=== PATIENT | male | born 1960 | race Caucasian/White ===

== ENCOUNTER 2021-06-22 04:30 | Observation (INO) | payer BC, OTHER ==
[2021-06-22 05:16] LABS: Basophils % (A) 1 %; Eosinophils # (A) 0.4 k/uL (0-0.7); Eosinophils % (A) 5 %; HCT 43.3 % (39.0-53.0); HGB 14.7 gm/dL (13.0-17.5); Lymphocytes # (A) 1.5 k/uL (1.0-4.8); Lymphocytes % (A) 20 %; MCH 37.7 pg (25.0-35.0); MCHC 33.9 g/dL (31.0-37.0); MCV 111.3 fL (80.0-100.0); Macrocytosis Marked; Mean Platelet Volume 7.9; Monocytes # (A) 0.5 k/uL (0-1.0); Monocytes % (A) 6 %; Neutrophils # (A) 4.9 k/uL (1.3-7.7); Neutrophils % (A) 65 %; Platelet Count 186 k/uL (150-450); RBC 3.89 m/uL (4.30-5.90); RDW 15.1 % (11.5-15.5); WBC 7.5 k/uL (3.8-10.6)
[2021-06-22] MEDS ORDERED: MORPHINE SULFATE 4 MG/ML SYRINGE IV STA (05:27)
[2021-06-22 05:33] LABS: Partial Thromboplastin Time 24.8 sec (22.0-30.0); Prothrombin Time 10.9 sec (9.0-12.0)
[2021-06-22 05:44] LABS: ALT 54 U/L (4-49); AST 70 U/L (17-59); African American GFR (CKD) >90 (>60 ml/min/1.73 sqM); Albumin 3.5 g/dL (3.5-5.0); Alkaline Phosphatase 92 U/L (38-126); Anion Gap 8 mmol/L; Blood Urea Nitrogen 10 mg/dL (9-20); Carbon Dioxide 25 mmol/L (22-30); Chloride 106 mmol/L (98-107); Glucose 111 mg/dL (74-99); Magnesium 1.3 mg/dL (1.6-2.3); Non-African American GFR(CKD) 89 (>60 ml/min/1.73 sqM); Potassium 3.5 mmol/L (3.5-5.1); Sodium 139 mmol/L (137-145); Total Bilirubin 0.9 mg/dL (0.2-1.3); Total Protein 7.6 g/dL (6.3-8.2)
--- NOTE | 2021-06-22 05:59 | XR ---
EXAMINATION TYPE: XR chest 1V portable DATE OF EXAM: 06/22/2021 COMPARISON: NONE HISTORY: Chest pain TECHNIQUE: Single view FINDINGS: There is some pulmonary interstitial edema. Heart is top normal in size. There are no hilar masses. Mediastinum appears normal. Bony thorax is intact. IMPRESSION: There is pulmonary interstitial edema which is nonspecific. This could be acute pneumonia or heart failure.
--- NOTE | 2021-06-22 07:50 | CT ---
CT CHEST FOR PULMONARY EMBOLISM. EXAMINATION TYPE: CT chest angio for PE DATE OF EXAM: 06/22/2021 INDICATION: SOB, chest pain, elevated d dimer CT DLP: 516.3 mGycm, Automated exposure control for dose reduction was used. CONTRAST: Patient injected with 100 mL of Isovue 370. COMPARISON: None TECHNIQUE: CT of the chest is performed on a spiral scan at 2 mm thick sections. Study is performed with intravenous contrast timed for evaluation for pulmonary embolism. This will limit additional po rtions of the evaluation. 3-D MIP images reconstructed by the technologist are reviewed on the compu ter in the coronal and sagittal planes. FINDINGS: No persistent filling defects are evident to suggest an acute pulmonary embolism. Contrast timing is suboptimal with greater contrast within the aorta than pulmonary arteries. Smaller peripheral pulmona ry emboli may not be well appreciated. There are multiple enlarged hilar lymph nodes. Somewhat prominent pretracheal lymph node is present. Aortopulmonic window and superior mediastinal adenopathy is present. Bilateral axillary adenopathy is present. The largest on the right measures 1.9 cm. Largest on the left measures 1.3 cm. The ascending aorta diameter at the level of the main pulmonary artery is 3.3 cm. The main pulmona ry artery diameter at the bifurcation is 3.4 cm. Minimal compressive atelectasis within the dependent portions the lung bases are present. Limited CT section through the upper abdomen are unremarkable. IMPRESSIONS: 1. No acute pulmonary embolism. This has some limitation discussed above. 2. Enlarged adenopathy including hilar, pretracheal, aortopulmonic window, superior mediastinum, and bilateral axillary lymph nodes. Additional workup is recommended.
[2021-06-22] MEDS ORDERED: IPRATROPIUM-ALBUTEROL 3 ML NEB INHALATION PRN (08:31)
[2021-06-22] MEDS ORDERED: methylPREDNISolone SOD SUCCI 125 MG/2 ML VIAL IV STA (08:31)
--- NOTE | 2021-06-22 09:18 | ED ---
Chest Pain HPI - General Chief Complaint: Chest Pain Stated Complaint: Chest Pain Time Seen by Provider: 06/22/21 05:01 Source: patient, EMS Mode of arrival: EMS Limitations: no limitations - History of Present Illness Initial Comments: This patient is 61-year-old man presenting to be evaluated for substernal chest pain. The patient states that it had been present earlier in the day but became much worse tonight. He was in bed and it became severe. He also has a little bit of cough but states that he has a baseline and then a little bit of dyspnea. Patient states that they had given him some fentanyl EMS ride and that has improved things. The pain is made worse by taking a deep breath and with certain positions. He has not noted any diaphoresis, nausea or vomiting, palpitations, lightheadedness or syncope. MD Complaint: chest pain -: days(s) Onset: during rest Pain Location: substernal Pain Radiation: none Severity: moderate Quality: aching Consistency: constant Improves With: nothing Worsens With: inspiration Anginal Symptoms: dyspnea Other Symptoms: cough - Related Data Home Medications Medication Instructions Recorded Confirmed Hydrochlorothiazide 12.5 mg PO DAILY 06/22/21 06/22/21 [hydroCHLOROthiazide] Levothyroxine Sodium [Synthroid] 50 mcg PO DAILY 06/22/21 06/22/21 QUEtiapine [SEROquel] 100 mg PO DAILY 06/22/21 06/22/21 Simvastatin [Zocor] 40 mg PO DAILY 06/22/21 06/22/21 lisinopriL 40 mg PO DAILY 06/22/21 06/22/21 metFORMIN HCL [Glucophage] 500 mg PO DAILY 06/22/21 06/22/21 Allergies Allergy/AdvReac Type Severity Reaction Status Date / Time No Known Allergies Allergy Verified 06/22/21 09:15 Review of Systems ROS Statement: Those systems with pertinent positive or pertinent negative responses have been documented in the HPI. ROS Other: All systems not noted in ROS Statement are negative. Constitutional: Denies: fever, chills Respiratory: Reports: cough, dyspnea. Denies: wheezes, hemoptysis Cardiovascular: Reports: chest pain. Denies: palpitations, orthopnea, edema, syncope Gastrointestinal: Denies: abdominal pain, nausea, vomiting, diarrhea Genitourinary: Denies: dysuria, hematuria Musculoskeletal: Denies: back pain Skin: Denies: rash Neurological: Denies: headache, weakness EKG Findings - EKG Results: EKG: interpreted by GM WANG, sinus rhythm (Rate 95 bpm), normal axis, normal QRS, normal ST/T Past Medical History Past Medical History: Hypertension History of Any Multi-Drug Resistant Organisms: None Reported Past Surgical History: Cholecystectomy, Orthopedic Surgery Additional Past Surgical History / Comment(s): KNEE ARTHROSCOPY, PILONIDAL CYST. Past Anesthesia/Blood Transfusion Reactions: No Reported Reaction Past Psychological History: No Psychological Hx Reported Past Alcohol Use History: Daily Past Drug Use History: None Reported - Past Family History Father Additional Family Medical History / Comment(s): Colon CA, bone CA, at 78 years old from bone CA Mother Additional Family Medical History / Comment(s): breast CA General Exam Limitations: no limitations General appearance: alert, in no apparent distress Head exam: Present: atraumatic, normocephalic Eye exam: Present: normal appearance. Absent: scleral icterus, conjunctival injection Neck exam: Present: normal inspection Respiratory exam: Present: wheezes. Absent: respiratory distress, rales, rhonchi, stridor, chest wall tenderness, accessory muscle use, decreased breath sounds Cardiovascular Exam: Present: regular rate, normal rhythm, normal heart sounds. Absent: systolic murmur, diastolic murmur, rubs, gallop GI/Abdominal exam: Present: soft. Absent: distended, tenderness, guarding, rebound, rigid, mass Extremities exam: Present: normal inspection, normal capillary refill. Absent: pedal edema, calf tenderness Back exam: Present: normal inspection. Absent: CVA tenderness (R), CVA tenderness (L) Neurological exam: Present: alert Skin exam: Present: warm, dry, intact, normal color. Absent: rash Course Vital Signs 06/22/21 06/22/21 06/22/21 04:57 05:02 07:08 Temperature 97.6 F Pulse Rate 88 74 Pulse Rate [ Pulse Oximetery ] Respiratory 24 24 22 Rate Blood Pressure 129/86 103/82 Blood Pressure [Right Arm] O2 Sat by Pulse 98 98 Oximetry 06/22/21 06/22/21 06/22/21 09:13 11:16 15:00 Temperature 100.7 F H Pulse Rate 106 H 114 H Pulse Rate [ 95 Pulse Oximetery ] Respiratory 22 22 22 Rate Blood Pressure 146/96 166/97 Blood Pressure 161/95 [Right Arm] O2 Sat by Pulse 95 93 L Oximetry 06/22/21 06/22/21 06/22/21 15:04 15:13 16:00 Temperature 99.1 F Pulse Rate 114 H 114 H 87 Pulse Rate [ Pulse Oximetery ] Respiratory 21 Rate Blood Pressure 152/108 Blood Pressure [Right Arm] O2 Sat by Pulse Oximetry 06/22/21 17:44 Temperature 99.1 F Pulse Rate 94 Pulse Rate [ Pulse Oximetery ] Respiratory 16 Rate Blood Pressure 157/94 Blood Pressure [Right Arm] O2 Sat by Pulse 92 L Oximetry Disposition Clinical Impression: COPD (chronic obstructive pulmonary disease) Disposition: ADMITTED IP TO THIS HOSP Condition: Undetermined Is patient prescribed a controlled substance at d/c from ED?: No
[2021-06-22] MEDS ORDERED: LORazepam 2 MG/ML INJ IV PRN ×3 (10:49)
[2021-06-22] MEDS ORDERED: THIAMINE 100 MG/ML 2 ML VIAL IM STA (10:49)
[2021-06-22] MEDS ORDERED: Magnesium Replacement Protocol 1 EACH MISC MISCELLANE PRN (10:51)
[2021-06-22] MEDS ORDERED: POTASSIUM CHLORIDE ER 20 MEQ TAB.ER PO STA (10:54)
[2021-06-22] MEDS: HEPARIN SODIUM,PORCINE/PF 5,000 UNIT/0.5 ML SYRINGE SQ SCH ×2 (10:55→21:52)
[2021-06-22] MEDS: MAGNESIUM SULFATE-D5W PMX 1 GM in DEXTROSE/WATER 1 100ML.BAG IVPB SCH ×3 (11:29→21:52)
[2021-06-22] MEDS ORDERED: methylPREDNISolone SOD SUCCI 125 MG/2 ML VIAL IV SCH (12:00)
--- NOTE | 2021-06-22 12:45 | P.CNPUL ---
History of Present Illness Consult date: 06/22/21 Requesting physician: Corky Cheung Reason for consult: chest pain, other Chief complaint: Chest pain History of present illness: This is a 61-year-old white male patient with past medical history of hypertension, hypothyroidism, chronic smoker, smoking one half pack a day for 48 years, who sees Margarita Locke PA-C for primary care services. Patient came in on 06/22/2021 with complaints of substernal chest pain and shortness of breath for the past 2 months. In addition patient had an extensive papular macular rash covering his whole entire body including chest, neck, upper and lower ex tremities, back and arm pits and groins. He states the rash has been present only for the past 2 weeks. Patient has not had any recent medication changes, he does take lisinopril for hypertension and his been on it for years, with no recent dose adjustment. Patient reports a little bit of a cough which is at baseline, no fever or chills. His chest discomfort is reportedly worse with deep inspiration. He denied any diaphoresis, no nausea or vomiting, no palpitations no lightheadedness or syncope. When we asked the patient to point to the area of his chest discomfort he is pointing more to the epigastric region. Chest x-ray showed pulmonary interstitial edema. CT angiogram of the chest was completed showing no evidence of pulmonary embolism with some limitations of the study, and it did show enlarged adenopathy including hilar, pretracheal aortopulmonic window, superior mediastinum and bilateral axillary lymph nodes with the recommendation of additional workup. Lung windows showed minimal compressive atelectasis within the dependent portions of the lung bases. Limited CT section of the upper abdomen was unremarkable. Patient tested negative for COVId 19. During our evaluation patient is seen in the emergency Department, resting on the stretcher, currently on 4 L of oxygen with a pulse ox of 94%, appears to be in no acute distress, obvious extensive rash covering his upper trunk, neck, arms, lower legs, appears to be somewhat poorly kept. Review of Systems All systems: negative Constitutional: Denies chills, Denies fever Eyes: denies blurred vision, denies pain Ears, nose, mouth and throat: Denies headache, Denies sore throat Cardiovascular: Denies chest pain, Denies shortness of breath Respiratory: Reports dyspnea, Denies cough Gastrointestinal: Denies abdominal pain, Denies diarrhea, Denies nausea, Denies vomiting Musculoskeletal: Denies myalgias Integumentary: Denies pruritus, Denies rash Neurological: Denies numbness, Denies weakness Psychiatric: Denies anxiety, Denies depression Endocrine: Denies fatigue, Denies weight change Past Medical History Past Medical History: Hypertension Additional Past Medical History / Comment(s): DM type 2, History of Any Multi-Drug Resistant Organisms: None Reported Past Surgical History: Cholecystectomy, Orthopedic Surgery Additional Past Surgical History / Comment(s): KNEE ARTHROSCOPY, PILONIDAL CYST. Past Anesthesia/Blood Transfusion Reactions: No Reported Reaction Past Psychological History: No Psychological Hx Reported Past Alcohol Use History: Daily Past Drug Use History: None Reported - Past Family History Father Additional Family Medical History / Comment(s): Colon CA, bone CA, at 78 years old from bone CA Mother Additional Family Medical History / Comment(s): breast CA Medications and Allergies Home Medications Medication Instructions Recorded Confirmed Type Hydrochlorothiazide 12.5 mg PO DAILY 06/22/21 06/22/21 History [hydroCHLOROthiazide] Levothyroxine Sodium [Synthroid] 50 mcg PO DAILY 06/22/21 06/22/21 History QUEtiapine [SEROquel] 100 mg PO DAILY 06/22/21 06/22/21 History Simvastatin [Zocor] 40 mg PO DAILY 06/22/21 06/22/21 History lisinopriL 40 mg PO DAILY 06/22/21 06/22/21 History metFORMIN HCL [Glucophage] 500 mg PO DAILY 06/22/21 06/22/21 History Allergies Allergy/AdvReac Type Severity Reaction Status Date / Time No Known Allergies Allergy Verified 06/22/21 09:15 Physical Exam Vitals: Vital Signs Temp Pulse Resp BP Pulse Ox 06/22/21 11:16 114 H 22 166/97 95 06/22/21 09:13 106 H 22 146/96 06/22/21 07:08 74 22 103/82 98 06/22/21 05:02 24 06/22/21 04:57 97.6 F 88 24 129/86 98 Intake and Output 06/21/21 06/22/21 06/22/21 22:59 06:59 14:59 Other: Weight 95.254 kg 95.254 kg GENERAL EXAM: Alert, very pleasant, 61-year-old white male, on 4 L of oxygen and the pulse ox of 94%, resting on the gurney in the emergency department, patient has extensive papular macular rash covering his upper trunk, neck, arms, armpits, groin areas, backside and legs, with scaling and thickened skin over his hands and bilateral arms comfortable in no apparent distress. HEAD: Normocephalic/atraumatic. EYES: Normal reaction of pupils, equal size. Conjunctiva pink, sclera white. NOSE: Clear with pink turbinates. THROAT: No erythema or exudates. NECK: No masses, no JVD, no thyroid enlargement, no adenopathy. CHEST: No chest wall deformity. Symmetrical expansion. LUNGS: Diminished air entry with no crackles, wheeze, rhonchi or dullness. CVS: Regular rate and rhythm, normal S1 and S2, no gallops, no murmurs, no rubs ABDOMEN: Soft, nontender. No hepatosplenomegaly, normal bowel sounds, no guarding or rigidity. EXTREMITIES: Clubbing of bilateral hands, no edema, no cyanosis, 2+ pulses and upper and lower extremities. MUSCULOSKELETAL: Muscle strength and tone normal. SPINE: No scoliosis or deformity SKIN: Extensive papular macular rash covering truncal area, neck, bilateral arms, armpits, back, groin, sacral area, and bilateral legs. The rash on the arms and hands appears to be worse with thickening of the skin, and scaling CENTRAL NERVOUS SYSTEM: Alert and oriented -3. No focal deficits, tone is normal in all 4 extremities. PSYCHIATRIC: Alert and oriented -3. Appropriate affect. Intact judgment and insight. Results - Laboratory Findings CBC and BMP: 06/22/21 05:03 06/22/21 05:03 PT/INR, D-dimer PT 10.9 sec (9.0-12.0) 06/22/21 05:03 INR 1.0 (<1.2) 06/22/21 05:03 D-Dimer 1.60 mg/L FEU (<0.60) H 06/22/21 05:03 Abnormal lab findings: Abnormal Labs 06/22/21 06/22/21 06/22/21 05:03 05:03 05:03 RBC 3.89 L MCV 111.3 H MCH 37.7 H Macrocytosis Marked A D-Dimer 1.60 H Glucose 111 H Magnesium 1.3 L AST 70 H ALT 54 H - Diagnostic Findings Chest x-ray: report reviewed, image reviewed CT scan - chest: report reviewed, image reviewed Assessment and Plan Plan: Assessment: #1. Acute exacerbation of COPD. Patient is negative for COVID-19 #2. Shortness of breath related to the above. CTA chest ruled out pulmonary embolism #3. Chest pain, EKG showed no acute ST-T wave changes, first troponin was negative #4. Enlarged hilar, pretracheal, aortopulmonary, superior mediastinum and bilateral axillary lymph nodes, patient will need additional workup. #5. Extensive papular macular rash all over patient's body #6. Chronic smoking history, carries 1-1/2 pack year smoking history for 48 years. #7. History of COPD #8. Hypertension #9. Hypothyroidism #10. Depression #11. Daily alcohol use #12. Osteoarthritis with previous knee arthroscopy #13. Previous history of cholecystectomy Plan: Agree with IV steroids Continue breathing treatments Chest x-ray and CT chest reviewed The hilar and mediastinal lymph nodes may be too small for biopsy Consult interventional radiology for possibility of axillary node biopsies We'll continue to follow patient's clinical course I performed a history & physical examination of the patient and discussed their management with my nurse practitioner, Shannon Martell. I reviewed the nurse practitioner's note and agree with the documented findings and plan of care. Lung sounds are positive for diffuse wheezes throughout the lung riggs. The findings and the impression was discussed with the patient. I attest to the documentation by the nurse practitioner. I have personally seen and examined the patient, performed the documentation and the assessment and plan as written. Number of minutes spent on the visit: [15] Time with Patient: Greater than 30
--- NOTE | 2021-06-22 13:57 | P.HPIM ---
History of Present Illness H&P Date: 06/22/21 This is a pleasant 61-year-old male presents to the [facility] with complaints of chest pain substernal with associated cough as well as some shortness of breath. Patient always has a cough, no change from baseline. Chest pain is worse with inspiration and expiration, had received IV pain medication in the ambulance which helped. He does have a history of COPD and is a currently a one and a half pack per day per smoker as well as drinks 1 pint per day of whiskey, and beer. Additional past medical history includes hypertension, hypothyroidism, diabetes mellitus type 2. CIWA in the EC was 16+, patient was started on ativan protocol for acute alcohol withdrawal. Patient currently denies a desire to quit drinking. Patient has a generalized rash on the lower abdomen/trunk, neck, upper and lower extremities, and dry scaly skin, has admitted to not showering for 3 weeks. Denies any suicidal thoughts. Was started on IV steroids in the [facility] for a COPD exacerbation as patient does have some scattered wheezing. Pulmonary was consulted. Labs reviewed, white count 7.5, hemoglobin 14.7, d-dimer 1.60, sodium 139, potassium 3.5, BUN 10, creatinine 0.92, glucose 111, magnesium 1.3, AST 70, ALT 54, troponin negative, BNP 111. COVID Not detected. EKG reviewed; normal sinus rhythm, heart rate 95, QT 446, no ST or T-wave abnormalities evident. Chest x-ray shows pulmonary interstitial edema which is nonspecific this could be acute pneumonia or heart failure Chest CTA negative for acute pulmonary embolism, enlarged adenopathy including hilar, pretracheal, aortopulmonic window, superior mediastinum and bilateral axillary lymph nodes. Recommended additional workup. REVIEW OF SYSTEMS: CONSTITUTIONAL: No fever, no malaise, no fatigue. HEENT: No recent visual problems or hearing problems. Denied any sore throat. CARDIOVASCULAR: No chest pain, orthopnea, PND, no palpitations, no syncope. PULMONARY: Reports shortness of breath, reports cough, no hemoptysis. GASTROINTESTINAL: No diarrhea, no nausea, no vomiting, no abdominal pain. NEUROLOGICAL: No headaches, no weakness, no numbness. HEMATOLOGICAL: Denies any bleeding or petechiae. GENITOURINARY: Denies any burning micturition, frequency, or urgency. MUSCULOSKELETAL/RHEUMATOLOGICAL: Denies any joint pain, swelling, or any muscle pain. ENDOCRINE: Denies any polyuria or polydipsia. The rest of the 14-point review of systems is negative. PHYSICAL EXAMINATION: GENERAL: The patient is alert and oriented x3, not in any acute distress. Well developed, well nourished. HEENT: Pupils are round and equally reacting to light. EOMI. No scleral icterus. No conjunctival pallor. Normocephalic, atraumatic. No pharyngeal erythema. No thyromegaly. CARDIOVASCULAR: S1 and S2 present. No murmurs, rubs, or gallops. PULMONARY: Scattered wheezing throughout ABDOMEN: Soft, nontender, nondistended, normoactive bowel sounds. No palpable organomegaly. MUSCULOSKELETAL: No joint swelling or deformity. EXTREMITIES: No cyanosis, clubbing, or pedal edema. NEUROLOGICAL: Gross neurological examination did not reveal any focal deficits. SKIN: Red maculopapular rash to the lower abdomen/trunk, extremities, with dry scaly flaking skin. Assessment and plan Assessment -Acute COPD exacerbation currently on 4L nasal cannula -Elevated D-Dimer, no evidence for PE -Acute chest pain, trending troponins, EKG reviewed -Generalized rash probably due to poor hygiene, recommend shower and lotion -Alcoholic hepatitis -Acute alcohol withdrawal -Dibetes Mellitus Type 2, hold oral diabetic agents will use novolog sliding scale -Hypertension -Hypothyroidism -Chronic Alcohol abuse -Chronic tobacco dependency -Obesity -General medical debility with poor hygiene GI Prophylaxis: Pepcid DVT Prophylaxis: Subcu heparin Plan Continue IV steroids, updrafts, oxygen support Pulmonary consultation IR consultation for possible axillary lymph node biopsy [place] protocol Replace magnesium Resume home medications Repeat labs in AM Prognosis guarded Past Medical History Past Medical History: Hypertension History of Any Multi-Drug Resistant Organisms: None Reported Past Surgical History: Cholecystectomy, Orthopedic Surgery Additional Past Surgical History / Comment(s): KNEE ARTHROSCOPY, PILONIDAL CYST. Past Anesthesia/Blood Transfusion Reactions: No Reported Reaction Past Psychological History: No Psychological Hx Reported Past Alcohol Use History: Daily Past Drug Use History: None Reported - Past Family History Father Additional Family Medical History / Comment(s): Colon CA, bone CA, at 78 years old from bone CA Mother Additional Family Medical History / Comment(s): breast CA Medications and Allergies Home Medications Medication Instructions Recorded Confirmed Type Hydrochlorothiazide 12.5 mg PO DAILY 06/22/21 06/22/21 History [hydroCHLOROthiazide] Levothyroxine Sodium [Synthroid] 50 mcg PO DAILY 06/22/21 06/22/21 History QUEtiapine [SEROquel] 100 mg PO DAILY 06/22/21 06/22/21 History Simvastatin [Zocor] 40 mg PO DAILY 06/22/21 06/22/21 History lisinopriL 40 mg PO DAILY 06/22/21 06/22/21 History metFORMIN HCL [Glucophage] 500 mg PO DAILY 06/22/21 06/22/21 History Allergies Allergy/AdvReac Type Severity Reaction Status Date / Time No Known Allergies Allergy Verified 06/22/21 09:15 Physical Exam Vitals: Vital Signs Temp Pulse Resp BP Pulse Ox 06/22/21 09:13 106 H 22 146/96 06/22/21 07:08 74 22 103/82 98 06/22/21 05:02 24 06/22/21 04:57 97.6 F 88 24 129/86 98 Intake and Output 06/21/21 06/22/21 06/22/21 22:59 06:59 14:59 Other: Weight 95.254 kg Results CBC & Chem 7: 06/22/21 05:03 06/22/21 05:03 Labs: Abnormal Lab Results - Last 24 Hours (Table) 06/22/21 06/22/21 06/22/21 Range/Units 05:03 05:03 05:03 RBC 3.89 L (4.30-5.90) m/uL MCV 111.3 H (80.0-100.0) fL MCH 37.7 H (25.0-35.0) pg Macrocytosis Marked A D-Dimer 1.60 H (<0.60) mg/L FEU Glucose 111 H (74-99) mg/dL Magnesium 1.3 L (1.6-2.3) mg/dL AST 70 H (17-59) U/L ALT 54 H (4-49) U/L Assessment and Plan Time with Patient: Greater than 30
[2021-06-22] MEDS: IPRATROPIUM-ALBUTEROL 3 ML NEB INHALATION SCH ×3 (14:59→19:22)
--- NOTE | 2021-06-22 15:57 | US ---
ULTRASOUND GUIDED CORE BIOPSY RIGHT AXILLA LYMPH NODE: CLINICAL HISTORY: Right axilla lymphadenopathy FINDINGS: The procedure was explained to the patient. The risks, complications, benefits and alternatives were discussed and any questions were answered. Informed consent was obtained. Patient was placed supin e on the ultrasound table and prepped and draped in the usual sterile fashion. Utilizing a 18 gauge needle, 2 passes were made into the requested right axillary lymph node. Patient was stable throughout the procedure. Pathology is pending. All elements of maximal barrier and sterile technique were utilized. IMPRESSION: 1. Successful ultrasound guided core biopsy right axillary lymph node.
[2021-06-22 20:13] LABS: Glucose,Whole Blood 318 mg/dL (75-99)
[2021-06-22] MEDS: INSULIN ASPART (NovoLOG) 100 UNIT/ML VIAL SQ SCH ×2 (20:13→21:53)
[2021-06-22] MEDS: THIAMINE 100 MG TAB PO SCH (21:52)
[2021-06-22] MEDS: FAMOTIDINE 20 MG TAB PO SCH (21:52)
[2021-06-22] MEDS: methylPREDNISolone SOD SUCCI 40 MG/ML 1 ML VIAL IV SCH (21:53)
[2021-06-22] MEDS: lisinopriL 20 MG TAB PO SCH (22:43)
[2021-06-22] MEDS: hydroCHLOROthiazide 12.5 MG CAP PO SCH (22:43)
[2021-06-22] MEDS: QUEtiapine 100 MG TAB PO SCH (22:43)
[2021-06-23] MEDS: LEVOTHYROXINE 50 MCG TAB PO SCH (05:40)
[2021-06-23 06:54] LABS: Glucose,Whole Blood 148 mg/dL (75-99)
[2021-06-23] MEDS: THIAMINE 100 MG TAB PO SCH ×2 (07:45→17:27)
[2021-06-23] MEDS: INSULIN ASPART (NovoLOG) 100 UNIT/ML VIAL SQ SCH ×4 (07:47→20:39)
[2021-06-23] MEDS: IPRATROPIUM-ALBUTEROL 3 ML NEB INHALATION SCH ×4 (08:00→20:12)
[2021-06-23] MEDS: methylPREDNISolone SOD SUCCI 40 MG/ML 1 ML VIAL IV SCH ×2 (08:01→20:39)
[2021-06-23] MEDS ORDERED: ATORVASTATIN 20 MG TAB PO SCH (09:00)
--- NOTE | 2021-06-23 09:28 | P.PN ---
Subjective Progress Note Date: 06/23/21 This is a pleasant 61-year-old male presents to the [facility] with complaints of chest pain substernal with associated cough as well as some shortness of breath. Patient always has a cough, no change from baseline. Chest pain is worse with inspiration and expiration, had received IV pain medication in the ambulance which helped. He does have a history of COPD and is a currently a one and a half pack per day per smoker as well as drinks 1 pint per day of whiskey, and beer. Additional past medical history includes hypertension, hypothyroidism, diabetes mellitus type 2. CIWA in the EC was 16+, patient was started on ativan protocol for acute alcohol withdrawal. Patient currently denies a desire to quit drinking. Patient has a generalized rash on the lower abdomen/trunk, neck, upper and lower extremities, and dry scaly skin, has admitted to not showering for 3 weeks. Denies any suicidal thoughts. Was started on IV steroids in the EC for a COPD exacerbation as patient does have some scattered wheezing. Pulmonary was consulted. Labs reviewed, white count 7.5, hemoglobin 14.7, d-dimer 1.60, sodium 139, potassium 3.5, BUN 10, creatinine 0.92, glucose 111, magnesium 1.3, AST 70, ALT 54, troponin negative, BNP 111. COVID Not detected. EKG reviewed; normal sinus rhythm, heart rate 95, QT 446, no ST or T-wave abnormalities evident. Chest x-ray shows pulmonary interstitial edema which is nonspecific this could be acute pneumonia or heart failure Chest CTA negative for acute pulmonary embolism, enlarged adenopathy including hilar, pretracheal, aortopulmonic window, superior mediastinum and bilateral axillary lymph nodes. Recommended additional workup. 06/23/2021 Patient is resting in bed. No acute events overnight. Wheezing has improved significantly. Pt states chest pain has resolved. Did not shower yesterday, plan is for shower today. He is working with physical therapy, and has ambulated in the hallways. Patient last saw PCP Margarita Locke 6 months ago, he did see an eye doctor about 2 weeks ago for possible pink eye, had a scratched cornea at that time and has been on antibiotic eye drops. His right eye has some cloudy drainage and pt states it was crusty last night. Patient retired recently from [employer] and currently does not have health insurance, states he will need a refe rral to a clinic on discharge for primary care. No complaints to right axilla biopsy site, clean and dry. Blood pressure 136/78, 99% on 2 L nasal cannula, heart rate 78, afebrile. ROS Constitutional: Denied any fatigue denied any fever. HEENT: Reports sinus drainage, pressure, reports eye drainage, reports eye crusting Cardio vascular: denied any chest pain, palpitations Gastrointestinal denied any nausea vomiting, diarrhea Pulmonary: Denied any shortness of breath, cough, states wheezing is improving Neurologic denied any new focal deficits All inpatient medications were reviewed and appropriate changes in these medications as dictated in the interval history and assessment and plan. PHYSICAL EXAMINATION: GENERAL: The patient is alert and oriented x3, not in any acute distress. Well developed, well nourished. HEENT: Pupils are round and equally reacting to light. EOMI. Bilateral sclera, injected, cloudy drainage, crusting. No conjunctival pallor. Normocephalic, atraumatic. No pharyngeal erythema. No thyromegaly. CARDIOVASCULAR: S1 and S2 present. No murmurs, rubs, or gallops. PULMONARY: Scattered expiratory wheezing ABDOMEN: Soft, nontender, nondistended, normoactive bowel sounds. No palpable organomegaly. MUSCULOSKELETAL: No joint swelling or deformity. EXTREMITIES: No cyanosis, clubbing, or pedal edema. NEUROLOGICAL: Gross neurological examination did not reveal any focal deficits. SKIN: Red maculopapular rash to the lower abdomen/trunk, extremities, with dry scaly flaking skin. Assessment and plan Assessment -Acute COPD exacerbation currently on 2L nasal cannula -Elevated D-Dimer, no evidence for PE -Acute chest pain, trending troponins, EKG reviewed, Chest pain has resolved at this time -Generalized rash probably due to poor hygiene, recommend shower and lotion -Bilateral conjunctivitis, probably bacterial as drainage is cloudy with crusting -Alcoholic hepatitis -Acute alcohol withdrawal -Dibetes Mellitus Type 2, hold oral diabetic agents will use novolog sliding scale -Hypertension -Hypothyroidism -Chronic Alcohol abuse -Chronic tobacco dependency -Obesity -General medical debility with poor hygiene GI Prophylaxis: Pepcid DVT Prophylaxis: Subcu heparin Plan Continue IV steroids, updrafts, oxygen support Pulmonary consultation [place] protocol PT/OT consultation Prognosis guarded Objective - Vital Signs Vital signs: Vital Signs Temp 98.2 F 06/23/21 07:00 Pulse 90 06/23/21 08:11 Resp 20 06/23/21 07:01 BP 136/78 06/23/21 07:00 Pulse Ox 99 06/23/21 08:03 Intake & Output 06/22/21 06/23/21 06/23/21 18:59 06:59 18:59 Intake Total 118 Balance 118 Weight 95.254 kg Intake: Oral 118 Other: Voiding Method Toilet Toilet # Voids 2 - Labs CBC & Chem 7: 06/22/21 05:03 06/22/21 05:03 Labs: Abnormal Lab Results - Last 24 Hours (Table) 06/22/21 06/23/21 Range/Units 20:11 06:53 POC Glucose (mg/dL) 318 H 148 H (75-99) mg/dL Assessment and Plan Time with Patient: Less than 30
[2021-06-23] MEDS: FAMOTIDINE 20 MG TAB PO SCH ×2 (10:01→20:38)
[2021-06-23] MEDS: hydroCHLOROthiazide 12.5 MG CAP PO SCH (10:01)
[2021-06-23] MEDS: lisinopriL 20 MG TAB PO SCH (10:01)
[2021-06-23] MEDS: QUEtiapine 100 MG TAB PO SCH (10:01)
[2021-06-23] MEDS: HEPARIN SODIUM,PORCINE/PF 5,000 UNIT/0.5 ML SYRINGE SQ SCH ×2 (10:02→20:38)
[2021-06-23] MEDS: OFLOXACIN 0.3% OPHTH DROPS 5 ML BOTTLE BOTH EYES SCH ×5 (10:20→23:12)
[2021-06-23 11:35] LABS: Glucose,Whole Blood 149 mg/dL (75-99)
[2021-06-23 11:46] LABS: Albumin 3.4 g/dL (3.8-4.9); Albumin/Globulin Ratio 0.97 (1.60-3.17); Anion Gap 13.8 mmol/L (10.00-18.00); BUN/Creat Ratio 19.63 Ratio (12.00-20.00); Blood Urea Nitrogen 15.7 mg/dL (9.0-27.0); Calcium 8.7 mg/dL (8.7-10.3); Carbon Dioxide 23.2 mmol/L (20.0-27.5); Globulin 3.5 g/dL (1.6-3.3); Non-African American GFR(CKD) 95.7 (60.0-200.0); Potassium 3.9 mmol/L (3.5-5.5); Total Bilirubin 0.9 mg/dL (0.30-1.20); Total Protein 6.9 g/dL (6.2-8.2)
--- NOTE | 2021-06-23 13:01 | P.PN ---
Subjective Progress Note Date: 06/23/21 This is a 61-year-old white male patient with past medical history of hypertension, hypothyroidism, chronic smoker, smoking one half pack a day for 48 years, who sees Margarita Locke PA-C for primary care services. Patient came in on 06/22/2021 with complaints of substernal chest pain and shortness of breath for the past 2 months. In addition patient had an extensive papular macular rash covering his whole entire body including chest, neck, upper and lower extremities, back and arm pits and groins. He states the rash has been present only for the past 2 weeks. Patient has not had any recent medication changes, he does take lisinopril for hypertension and his been on it for years, with no recent dose adjustment. Patient reports a little bit of a cough which is at baseline, no fever or chills. His chest discomfort is reportedly worse with deep inspiration. He denied any diaphoresis, no nausea or vomiting, no palpitations no lightheadedness or syncope. When we asked the patient to point to the area of his chest discomfort he is pointing more to the epigastric region. Chest x-ray showed pulmonary interstitial edema. CT angiogram of the chest was completed showing no evidence of pulmonary embolism with some limitations of the study, and it did show enlarged adenopathy including hilar, pretracheal aortopulmonic window, superior mediastinum and bilateral axillary lymph nodes with the recommendation of additional workup. Lung windows showed minimal compressive atelectasis within the dependent portions of the lung bases. Limited CT section of the upper abdomen was unremarkable. Patient tested negative for COVId 19. During our evaluation patient is seen in the emergency Department, resting on the stretcher, currently on 4 L of oxygen with a pulse ox of 94%, appears to be in no acute distress, obvious extensive rash covering his upper trunk, neck, arms, lower legs, appears to be somewhat poorly kept. The patient is seen today 06/23/2021 in follow-up on the regular medical floor. He is currently sitting up at the bedside. Awake and alert in no acute distress. He is doing better today compared to yesterday. He states his midsternal chest discomfort has completely resolved. He is maintaining good O2 saturations in the 90s on 2 L/m per nasal cannula. He is continued on DuoNeb inhalations, IV Solu-Medrol. Heparin for DVT prophylaxis. Remains in the [facility] protocol. He did have a right axillary biopsy performed yesterday. Pathology is pending. Blood glucose 149. Objective - Vital Signs Vital signs: Vital Signs Temp 98.2 F 06/23/21 07:00 Pulse 104 H 06/23/21 11:59 Resp 20 06/23/21 07:01 BP 128/78 06/23/21 10:00 Pulse Ox 88 L 06/23/21 10:39 Intake & Output 06/22/21 06/23/21 06/23/21 18:59 06:59 18:59 Intake Total 118 Balance 118 Weight 95.254 kg Intake: Oral 118 Other: Voiding Method Toilet Toilet # Voids 2 - Exam GENERAL EXAM: Alert, very pleasant, 61-year-old male patient, on 2 L of oxygen and the pulse ox of 95%, extensive papular macular rash covering his upper trunk, neck, arms, armpits, groin areas, backside and legs, with scaling and thickened skin over his hands and bilateral arms comfortable in no apparent distress. HEAD: Normocephalic/atraumatic. EYES: Normal reaction of pupils, equal size. Conjunctiva pink, sclera white. NOSE: Clear with pink turbinates. THROAT: No erythema or exudates. NECK: No masses, no JVD, no thyroid enlargement, no adenopathy. CHEST: No chest wall deformity. Symmetrical expansion. LUNGS: Diminished air entry with faint crackles in the bilateral bases. CVS: Regular rate and rhythm, normal S1 and S2, no gallops, no murmurs, no rubs ABDOMEN: Soft, nontender. No hepatosplenomegaly, normal bowel sounds, no guarding or rigidity. EXTREMITIES: Clubbing of bilateral hands, no edema, no cyanosis, 2+ pulses and upper and lower extremities. MUSCULOSKELETAL: Muscle strength and tone normal. SPINE: No scoliosis or deformity SKIN: Extensive papular macular rash covering truncal area, neck, bilateral arms, armpits, back, groin, sacral area, and bilateral legs. The rash on the arms and hands appears to be worse with thickening of the skin, and scaling CENTRAL NERVOUS SYSTEM: Alert and oriented -3. No focal deficits, tone is no rmal in all 4 extremities. PSYCHIATRIC: Alert and oriented -3. Appropriate affect. Intact judgment and insight. - Labs CBC & Chem 7: 06/22/21 05:03 06/23/21 06:02 Labs: Abnormal Lab Results - Last 24 Hours (Table) 06/22/21 06/23/21 06/23/21 Range/Units 20:11 06:02 06:53 Glucose 147 H (70-110) mg/dL POC Glucose (mg/dL) 318 H 148 H (75-99) mg/dL AST 48 H (14-35) U/L Albumin 3.4 L (3.8-4.9) g/dL Globulin 3.5 H (1.6-3.3) g/dL Albumin/Globulin Ratio 0.97 L (1.60-3.17) g/dL 06/23/21 Range/Units 11:33 Glucose (70-110) mg/dL POC Glucose (mg/dL) 149 H (75-99) mg/dL AST (14-35) U/L Albumin (3.8-4.9) g/dL Globulin (1.6-3.3) g/dL Albumin/Globulin Ratio (1.60-3.17) g/dL Assessment and Plan Assessment: 1 Acute exacerbation of COPD. Patient is negative for COVID-19 2 Shortness of breath related to the above. CTA chest ruled out pulmonary embolism 3 Chest pain, EKG showed no acute ST-T wave changes, first troponin was negative 4 Enlarged hilar, pretracheal, aortopulmonary, superior mediastinum and bilateral axillary lymph nodes, patient will need additional workup. 5 Extensive papular macular rash all over patient's body 6 Chronic smoking history, carries 1-1/2 pack year smoking history for 48 years. 7 History of COPD 8 Hypertension 9 Hypothyroidism 10 Depression 11 Daily alcohol use 12 Osteoarthritis with previous knee arthroscopy 13 Previous history of cholecystectomy Plan: The patient was seen and evaluated Improved and on 2 L nasal cannula Titrate the FiO2 as tolerated Right axillary lymph node biopsy performed yesterday Pathology pending Continue the current treatment plan We will continue to follow I, the cosigning physician, performed a history & physical examination of the patient. Lungs sounds faint basilar crackles. Maintaining good O2 saturations in the 90s on 2 L/m per nasal cannula. I discussed the assessment and plan of care with my nurse practitioner, Liset Montenegro. I attest to the above note as dictated by her. I have personally seen and examined the patient, performed the documentation and the assessment and plan as written. Number of minutes spent on the visit: 10.
[2021-06-23] MEDS ORDERED: MINERAL OIL-WHITE PETROLATUM 120 GM JAR TOPICAL SCH (15:35)
[2021-06-23] MEDS ORDERED: MINERAL OIL-WHITE PETROLATUM CREAM 454 GM JAR TOPICAL SCH (16:00)
[2021-06-23 16:59] LABS: Glucose,Whole Blood 115 mg/dL (75-99)
[2021-06-23 19:52] LABS: Glucose,Whole Blood 175 mg/dL (75-99)
[2021-06-24] MEDS: OFLOXACIN 0.3% OPHTH DROPS 5 ML BOTTLE BOTH EYES SCH (04:17)
[2021-06-24] MEDS: LEVOTHYROXINE 50 MCG TAB PO SCH (05:54)
[2021-06-24 06:44] VITALS: BP 158/90; PULSE 115; RESP 22; TEMP 98.2
--- NOTE | 2021-06-24 15:19 | P.DS ---
Providers Date of admission: 06/22/21 08:31 Attending physician: Triston Whitt Consults: 06/22/21 08:31 Consult Physician Routine Consulting Provider: Gabriela Wu Consult Reason/Comments: COPD exacerbation Do you want consulting provider notified?: Yes Primary care physician: Stated None Hospital Course: Patient left AGAINST MEDICAL ADVICE this morning. Home oxygen referral was started by CM and patient to be discharged later today after evaluation by pulmonary services. Patient was set up with health insurance prior to discharge and given information on [facility] for follow up. Most recent documented vitals show patient is afebrile, heart rate 115, blood pressure 158/90, he was 92% on room air. Blood sugar 175. Patient Condition at Discharge: Undetermined Plan - Discharge Summary New Discharge Prescriptions: No Action QUEtiapine [SEROquel] 100 mg PO DAILY Levothyroxine Sodium [Synthroid] 50 mcg PO DAILY Simvastatin [Zocor] 40 mg PO DAILY metFORMIN HCL [Glucophage] 500 mg PO DAILY lisinopriL 40 mg PO DAILY Hydrochlorothiazide [hydroCHLOROthiazide] 12.5 mg PO DAILY Discharge Medication List Hydrochlorothiazide [hydroCHLOROthiazide] 12.5 mg PO DAILY 06/22/21 [History] Levothyroxine Sodium [Synthroid] 50 mcg PO DAILY 06/22/21 [History] QUEtiapine [SEROquel] 100 mg PO DAILY 06/22/21 [History] Simvastatin [Zocor] 40 mg PO DAILY 06/22/21 [History] lisinopriL 40 mg PO DAILY 06/22/21 [History] metFORMIN HCL [Glucophage] 500 mg PO DAILY 06/22/21 [History] Follow up Appointment(s)/Referral(s): Gabriela Wu MD [STAFF PHYSICIAN] - 1 Week [facility] [NON-STAFF] - As Needed (Supplyer of Home Oxygen) [facility] [NON-STAFF] - 1-2 Days Patient Instructions/Handouts: How to Stop Smoking (DC) Discharge/Stand Alone Forms: AA Meetings [place], [facility], Personal [employer] Head Assistant Wet Process Discharge Disposition: Left Against Medical Advice
== END 2021-06-24 07:02 | disposition left against medical advice (07) ==
LOC: EC 04:30 → 6NMEDSUR 08:31
PROVIDERS: ADMIT Hospitalist; ATTEND Hospitalist
DX: J44.1 Chronic obstructive pulmonary disease with (acute) exacerbation (principal); R79.89 Other specified abnormal findings of blood chemistry; R07.2 Precordial pain; R21 Rash and other nonspecific skin eruption; L98.6 Other infiltrative disorders of the skin and subcutaneous tissue; K70.10 Alcoholic hepatitis without ascites; F10.239 Alcohol dependence with withdrawal, unspecified; Z53.29 Procedure and treatment not carried out because of patient's decision for other reasons; H10.9 Unspecified conjunctivitis; F17.210 Nicotine dependence, cigarettes, uncomplicated; R60.9 Edema, unspecified; Z20.822 Contact with and (suspected) exposure to COVID-19; E11.9 Type 2 diabetes mellitus without complications; I10 Essential (primary) hypertension; E03.9 Hypothyroidism, unspecified; R46.0 Very low level of personal hygiene; M19.90 Unspecified osteoarthritis, unspecified site; E66.9 Obesity, unspecified; Z68.30 Body mass index [BMI] 30.0-30.9, adult; F32.A Depression, unspecified; Z79.890 Hormone replacement therapy; Z79.899 Other long term (current) drug therapy; Z79.84 Long term (current) use of oral hypoglycemic drugs; Z71.6 Tobacco abuse counseling; Z71.89 Other specified counseling; Z80.3 Family history of malignant neoplasm of breast; Z90.49 Acquired absence of other specified parts of digestive tract; Z80.0 Family history of malignant neoplasm of digestive organs; Z80.8 Family history of malignant neoplasm of other organs or systems
CPT/HCPCS: 96376 ×2; 96366 ×3; 96372 ×3; 96365; 96375; 99285; 36415; 94640 ×4; 93005; 97161; 97165; 85379; 88305; 83880; 80053 ×2; 83735 ×2; 84484; 85025; 85610; 85730; 88342; 88341; 87635; 71045; 76942; 38505; 71275; G0378 ×3; J2060; J2270; J2920 ×2; J2930; J3411; J3475; Q9967; J1644 ×2

== ENCOUNTER 2022-01-29 13:06 | Inpatient (IN) | payer OTHER ==
[2022-01-29] MEDS ORDERED: SODIUM CHLORIDE 0.9% 1,000 ML IV STA (13:35)
[2022-01-29 13:43] LABS: Glucose,Whole Blood 167 mg/dL (70-110)
--- NOTE | 2022-01-29 13:57 | ED ---
Weakness HPI - General Chief complaint: Weakness Stated complaint: Weakness Time Seen by Provider: 01/29/22 13:15 Source: patient, EMS Mode of arrival: EMS Limitations: physical limitation - History of Present Illness Initial comments: 61-year-old male with past medical history of diabetes, hypertension, daily alcohol abuse presents emergency room with nausea and vomiting for the past week. States he's been extremely weak and unable to eat. He continues to drink. Reports to a half pint and 5-6 beers per day. Last drink was last night. He denies any abdominal pain. Weakness is generalized. No lateralizing symptoms. No hematemesis. Denies any fevers. No trauma. He has not taken his hypertensive or diabetic medications in 3 weeks. Currently denies having a doctor. - Related Data Home Medications Medication Instructions Recorded Confirmed Simvastatin [Zocor] 40 mg PO HS 06/22/21 01/29/22 lisinopriL 40 mg PO DAILY 06/22/21 01/29/22 metFORMIN HCL [Glucophage] 500 mg PO DAILY 06/22/21 01/29/22 Allergies Allergy/AdvReac Type Severity Reaction Status Date / Time No Known Allergies Allergy Verified 01/29/22 16:02 Review of Systems ROS Statement: Those systems with pertinent positive or pertinent negative responses have been documented in the HPI. ROS Other: All systems not noted in ROS Statement are negative. Past Medical History Past Medical History: Hypertension Additional Past Medical History / Comment(s): DM type 2, History of Any Multi-Drug Resistant Organisms: None Reported Past Surgical History: Cholecystectomy, Orthopedic Surgery Additional Past Surgical History / Comment(s): KNEE ARTHROSCOPY, PILONIDAL CYST. Past Anesthesia/Blood Transfusion Reactions: No Reported Reaction Past Psychological History: No Psychological Hx Reported Smoking Status: Current every day smoker Past Alcohol Use History: Daily Past Drug Use History: None Reported - Past Family History Father Additional Family Medical History / Comment(s): Colon CA, bone CA, at 78 y ears old from bone CA Mother Additional Family Medical History / Comment(s): breast CA General Exam Limitations: no limitations General appearance: alert, in no apparent distress Eye exam: Present: scleral icterus ENT exam: Present: mucous membranes dry, other (strong ketone smell) Neck exam: Present: normal inspection. Absent: tenderness, meningismus, lymphadenopathy Respiratory exam: Present: normal lung sounds bilaterally. Absent: respiratory distress, wheezes, rales, rhonchi, stridor Cardiovascular Exam: Present: regular rate, normal rhythm, normal heart sounds. Absent: systolic murmur, diastolic murmur, rubs, gallop, clicks GI/Abdominal exam: Present: soft, distended, other (asites) Extremities exam: Present: normal inspection, full ROM, normal capillary refill. Absent: tenderness, pedal edema, joint swelling, calf tenderness Neurological exam: Present: alert Psychiatric exam: Present: flat affect Skin exam: Present: other (jaundice) Course Vital Signs 01/29/22 01/29/22 01/29/22 13:12 15:52 17:25 Temperature 97.7 F Pulse Rate 98 100 98 Pulse Rate [ Automation And Controls Manager ] Respiratory 18 18 18 Rate Blood Pressure 109/82 118/82 122/80 Blood Pressure [Left Arm] O2 Sat by Pulse 100 98 97 Oximetry 01/29/22 18:39 Temperature 97.9 F Pulse Rate Pulse Rate [ 101 H Automation And Controls Manager ] Respiratory 20 Rate Blood Pressure Blood Pressure 116/74 [Left Arm] O2 Sat by Pulse 97 Oximetry EKG Findings - EKG Comments: EKG Findings:: EKG demonstrates sinus rhythm with a rate of 95. ID interval 161. QRS 92. QTC of 434. ST depression leads [address] and V[address] No acute ST segment elevations Medical Decision Making - Medical Decision Making Upon arrival patient placed in room 10. Her history and physical exam is performed. Patient markedly jaundiced on physical exam. IV access is established laboratory studies were conducted. Hb 9.9. INR 1.2. Sodium 129. Lactic acid 3.2. Bilirubin 13.6. Alcohol 33. Abdominal CT demonstrates fatty infiltration of the liver. Spoke with Dr. Ho. He accepted admission for the patient as the patient does not have any obstructive jaundice. No need for GI evaluation at this time. Spoke with the patient - informed him that he is very sick. Recommended that he notify family that he is hospitalized and offered help with this. Patient agreedable to admission. - Lab Data Result diagrams: 02/01/22 05:25 02/01/22 05:25 Lab Results 01/29/22 01/29/22 01/29/22 Range/Units 13:38 13:51 13:51 WBC (3.8-10.6) k/uL RBC (4.30-5.90) m/uL Hgb (13.0-17.5) gm/dL Hct (39.0-53.0) % MCV (80.0-100.0) fL MCH (25.0-35.0) pg MCHC (31.0-37.0) g/dL RDW (11.5-15.5) % Plt Count (150-450) k/uL MPV Neutrophils % (Manual) % Band Neuts % (Manual) % Lymphocytes % (Manual) % Monocytes % (Manual) % Eosinophils % (Manual) % Neutrophils # (Manual) (1.3-7.7) k/uL Lymphocytes # (Manual) (1.0-4.8) k/uL Monocytes # (Manual) (0-1.0) k/uL Eosinophils # (Manual) (0-0.7) k/uL Nucleated RBCs (0-0) /100 WBC Manual Slide Review Polychromasia Basophilic Stippling Macrocytosis Target Cells PT (9.0-12.0) sec INR (<1.2) APTT (22.0-30.0) sec Sodium 129 L (137-145) mmol/L Potassium 4.3 (3.5-5.1) mmol/L Chloride 92 L (98-107) mmol/L Carbon Dioxide 19 L (22-30) mmol/L Anion Gap 18 mmol/L BUN 22 H (9-20) mg/dL Creatinine 0.71 (0.66-1.25) mg/dL Est GFR (CKD-EPI)AfAm >90 (>60 ml/min/1.73 sqM) Est GFR (CKD-EPI)NonAf >90 (>60 ml/min/1.73 sqM) Glucose 143 H (74-99) mg/dL POC Glucose (mg/dL) 167 H (70-110) mg/dL POC Glu Jar Filler ID Mickey Hurd Lactic Ac Sepsis Rflx Plasma Lactic Acid Juan 3.2 H* (0.7-2.0) mmol/L Calcium 8.2 L (8.4-10.2) mg/dL Magnesium 1.5 L (1.6-2.3) mg/dL Total Bilirubin 13.6 H (0.2-1.3) mg/dL Conjugated Bilirubin 8.5 H (0.0-0.3) mg/dL Unconjugated Bilirubin 1.7 H (0.0-1.1) mg/dL Delta Bilirubin 3.4 H (0.0-0.2) mg/dL AST 131 H (17-59) U/L ALT 40 (4-49) U/L Alkaline Phosphatase 776 H (38-126) U/L Ammonia 39 H (<30) umol/L Troponin I (0.000-0.034) ng/mL NT-Pro-B Natriuret Pep pg/mL Total Protein 6.4 (6.3-8.2) g/dL Albumin 3.0 L (3.5-5.0) g/dL TSH 3.200 (0.465-4.680) mIU/L Acetaminophen <10.0 ug/mL Serum Alcohol 33 mg/dL 01/29/22 01/29/22 01/29/22 Range/Units 13:51 13:51 13:51 WBC 10.0 (3.8-10.6) k/uL RBC 2.73 L (4.30-5.90) m/uL Hgb 9.9 L (13.0-17.5) gm/dL Hct 29.4 L (39.0-53.0) % MCV 107.5 H (80.0-100.0) fL MCH 36.3 H (25.0-35.0) pg MCHC 33.7 (31.0-37.0) g/dL RDW 15.2 (11.5-15.5) % Plt Count 184 (150-450) k/uL MPV 9.8 Neutrophils % (Manual) 64 % Band Neuts % (Manual) 8 % Lymphocytes % (Manual) 26 % Monocytes % (Manual) 1 % Eosinophils % (Manual) 1 % Neutrophils # (Manual) 7.20 (1.3-7.7) k/uL Lymphocytes # (Manual) 2.60 (1.0-4.8) k/uL Monocytes # (Manual) 0.10 (0-1.0) k/uL Eosinophils # (Manual) 0.10 (0-0.7) k/uL Nucleated RBCs 0 (0-0) /100 WBC Manual Slide Review Performed Polychromasia Present Basophilic Stippling Present Macrocytosis Marked A Target Cells Present PT 12.6 H (9.0-12.0) sec INR 1.2 H (<1.2) APTT 27.0 (22.0-30.0) sec Sodium (137-145) mmol/L Potassium (3.5-5.1) mmol/L Chloride (98-107) mmol/L Carbon Dioxide (22-30) mmol/L Anion Gap mmol/L BUN (9-20) mg/dL Creatinine (0.66-1.25) mg/dL Est GFR (CKD-EPI)AfAm (>60 ml/min/1.73 sqM) Est GFR (CKD-EPI)NonAf (>60 ml/min/1.73 sqM) Glucose (74-99) mg/dL POC Glucose (mg/dL) (70-110) mg/dL POC Glu Jar Filler ID Lactic Ac Sepsis Rflx Plasma Lactic Acid Juan (0.7-2.0) mmol/L Calcium (8.4-10.2) mg/dL Magnesium (1.6-2.3) mg/dL Total Bilirubin (0.2-1.3) mg/dL Conjugated Bilirubin (0.0-0.3) mg/dL Unconjugated Bilirubin (0.0-1.1) mg/dL Delta Bilirubin (0.0-0.2) mg/dL AST (17-59) U/L ALT (4-49) U/L Alkaline Phosphatase (38-126) U/L Ammonia (<30) umol/L Troponin I <0.012 (0.000-0.034) ng/mL NT-Pro-B Natriuret Pep pg/mL Total Protein (6.3-8.2) g/dL Albumin (3.5-5.0) g/dL TSH (0.465-4.680) mIU/L Acetaminophen ug/mL Serum Alcohol mg/dL 01/29/22 01/29/22 Range/Units 13:51 14:22 WBC (3.8-10.6) k/uL RBC (4.30-5.90) m/uL Hgb (13.0-17.5) gm/dL Hct (39.0-53.0) % MCV (80.0-100.0) fL MCH (25.0-35.0) pg MCHC (31.0-37.0) g/dL RDW (11.5-15.5) % Plt Count (150-450) k/uL MPV Neutrophils % (Manual) % Band Neuts % (Manual) % Lymphocytes % (Manual) % Monocytes % (Manual) % Eosinophils % (Manual) % Neutrophils # (Manual) (1.3-7.7) k/uL Lymphocytes # (Manual) (1.0-4.8) k/uL Monocytes # (Manual) (0-1.0) k/uL Eosinophils # (Manual) (0-0.7) k/uL Nucleated RBCs (0-0) /100 WBC Manual Slide Review Polychromasia Basophilic Stippling Macrocytosis Target Cells PT (9.0-12.0) sec INR (<1.2) APTT (22.0-30.0) sec Sodium (137-145) mmol/L Potassium (3.5-5.1) mmol/L Chloride (98-107) mmol/L Carbon Dioxide (22-30) mmol/L Anion Gap mmol/L BUN (9-20) mg/dL Creatinine (0.66-1.25) mg/dL Est GFR (CKD-EPI)AfAm (>60 ml/min/1.73 sqM) Est GFR (CKD-EPI)NonAf (>60 ml/min/1.73 sqM) Glucose (74-99) mg/dL POC Glucose (mg/dL) (70-110) mg/dL POC Glu Jar Filler ID Lactic Ac Sepsis Rflx Y Plasma Lactic Acid Juan (0.7-2.0) mmol/L Calcium (8.4-10.2) mg/dL Magnesium (1.6-2.3) mg/dL Total Bilirubin (0.2-1.3) mg/dL Conjugated Bilirubin (0.0-0.3) mg/dL Unconjugated Bilirubin (0.0-1.1) mg/dL Delta Bilirubin (0.0-0.2) mg/dL AST (17-59) U/L ALT (4-49) U/L Alkaline Phosphatase (38-126) U/L Ammonia (<30) umol/L Troponin I (0.000-0.034) ng/mL NT-Pro-B Natriuret Pep 353 pg/mL Total Protein (6.3-8.2) g/dL Albumin (3.5-5.0) g/dL TSH (0.465-4.680) mIU/L Acetaminophen ug/mL Serum Alcohol mg/dL Disposition Clinical Impression: Acute liver failure, Alcohol abuse, Hypomagnesemia, Nausea and vomiting, Alcoholic ketosis Disposition: ADMITTED IP TO THIS [facility] Condition: Serious Is patient prescribed a controlled substance at d/c from ED?: No Time of Disposition: 17:18 Decision to Admit Reason: Admit from EC Decision Date: 01/29/22 Decision Time: 17:18
--- NOTE | 2022-01-29 14:15 | XR ---
EXAMINATION TYPE: XR chest 2V DATE OF EXAM: 01/29/2022 COMPARISON: 06/22/2021 HISTORY: Weakness TECHNIQUE: FINDINGS: There is relatively poor inspiration. There is no heart failure. Heart size is normal. Ther e are chest leads. Lungs are clear of consolidation. IMPRESSION: Poor inspiration. No pulmonary consolidation or heart failure. No adverse change.
[2022-01-29 14:17] LABS: INR 1.2 (<1.2); Prothrombin Time 12.6 sec (9.0-12.0)
[2022-01-29 14:18] LABS: ALT 40 U/L (4-49); AST 131 U/L (17-59); Acetaminophen <10.0 ug/mL; African American GFR (CKD) >90 (>60 ml/min/1.73 sqM); Alcohol 33 mg/dL; Alkaline Phosphatase 776 U/L (38-126); Anion Gap 18 mmol/L; Bilirubin, Conjugated 8.5 mg/dL (0.0-0.3); Bilirubin, Delta 3.4 mg/dL (0.0-0.2); Bilirubin,Unconjugated 1.7 mg/dL (0.0-1.1); Blood Urea Nitrogen 22 mg/dL (9-20); Calcium 8.2 mg/dL (8.4-10.2); Carbon Dioxide 19 mmol/L (22-30); Chloride 92 mmol/L (98-107); Glucose 143 mg/dL (74-99); Magnesium 1.5 mg/dL (1.6-2.3); Non-African American GFR(CKD) >90 (>60 ml/min/1.73 sqM); Potassium 4.3 mmol/L (3.5-5.1); Sodium 129 mmol/L (137-145); Total Bilirubin 13.6 mg/dL (0.2-1.3); Total Protein 6.4 g/dL (6.3-8.2)
[2022-01-29 14:22] LABS: Lactic Acid, Venous 3.2 mmol/L (0.7-2.0)
[2022-01-29 14:34] LABS: HCT 29.4 % (39.0-53.0); HGB 9.9 gm/dL (13.0-17.5); MCH 36.3 pg (25.0-35.0); MCHC 33.7 g/dL (31.0-37.0); MCV 107.5 fL (80.0-100.0); Macrocytosis Marked; Mean Platelet Volume 9.8; Platelet Count 184 k/uL (150-450); RBC 2.73 m/uL (4.30-5.90); RDW 15.2 % (11.5-15.5)
[2022-01-29 14:51] LABS: Band Neutrophils % 8 %; Basophilic Stippling Present; Neutrophils % (M) 64 %; Nucleated Red Blood Cells 0 /100 WBC (0-0); Polychromasia Present; Target Cells Present; Total Cells Counted 100
--- NOTE | 2022-01-29 17:11 | CT ---
EXAMINATION TYPE: CT abdomen pelvis w con DATE OF EXAM: 01/29/2022 COMPARISON: None HISTORY: liver failure and weakness CT DLP: 1015.1 mGycm Automated exposure control for dose reduction was used. CONTRAST: Performed with IV Contrast, patient injected with 100 mL of Isovue 300. Images obtained from the diaphragm to the floor of the pelvis with the IV contrast. There is subsegmental atelectasis and interstitial density at the lung bases bilaterally. Heart size is normal. No pericardial effusion. No pleural effusion. There is decreased density throughout the liver consistent with fatty infiltration. Spleen is intact. Stomach is intact. No pancreatic mass. There are clips from cholecystectomy. The bile ducts are not dilated. There is moderate abdominal ascites. There is no adrenal mass. Kidneys show satisfactory contrast opacification. No hydronephrosis. There is 3 mm calculus interpolar left kidney. No retroperitoneal adenopathy. There is 1.4 cm mass on the l eft lateral wall of the urinary bladder. No inguinal hernia. There are sigmoid diverticula. No diverticulitis. No evidence of free air. No sign of a bowel obstruc tion. Delayed images show normal renal excretion. The lumbar vertebrae have normal alignment. No compression fracture. Posterior elements are intact. F acet joints are intact. There is osteosclerosis in the superior aspect of the femoral heads consistent with chronic avascular necrosis. Sacroiliac joints are intact. IMPRESSION: Fatty infiltration of the liver. Minimal atelectasis at the lung bases. There is improvement compared to CT scan of 06/22/2021 and some clearing of the pulmonary interstitial edema. Abdominal ascites and fatty liver are a change compared to 06/22/2021 exam. Mass on the left lateral wall of the urinary bladder and follow-up recommended. Sigmoid diverticulosis.
[2022-01-29] MEDS ORDERED: NALOXONE 0.4 MG/ML 1 ML VIAL IV PRN (17:18)
[2022-01-29] MEDS ORDERED: ONDANSETRON 4 MG/2 ML VIAL IVP PRN (17:18)
[2022-01-29] MEDS: MAGNESIUM SULFATE-D5W PMX 1 GM in DEXTROSE/WATER 1 100ML.BAG IVPB SCH ×2 (17:24→18:24)
[2022-01-29] MEDS: SODIUM CHLORIDE 0.9% 1,000 ML IV SCH ×2 (17:24→20:17)
[2022-01-29 17:40] LABS: Appearance,Urine Cloudy (Clear); Bacteria,Urine Rare /hpf; Bilirubin,Urine 4+ (Negative); Blood,Urine Moderate (Negative); Color,Urine Dark Brown; Glucose,Urine (UA) Negative (Negative); Hyaline Casts,Urine 4 /lpf (0-2); Ketones,Urine 1+ (Negative); Leukocyte Esterase,Urine Negative (Negative); Mucus,Urine Occasional /hpf; Nitrite,Urine Negative (Negative); Protein,Urine Trace (Negative); RBC,Urine 1 /hpf (0-5); Specific Gravity,Urine 1.029 (1.001-1.035); Squamous Epithelial Cell,Urine <1 /hpf (0-4); WBC,Urine 4 /hpf (0-5)
[2022-01-29] MEDS: PANTOPRAZOLE 40 MG/10 ML VIAL IV SCH (18:23)
[2022-01-29] MEDS ORDERED: chlordiazePOXIDE 25 MG CAP PO PRN ×3 (18:42)
[2022-01-29] MEDS ORDERED: THIAMINE 100 MG/ML 2 ML VIAL IM STA (18:42)
[2022-01-29 20:57] LABS: Glucose,Whole Blood 154 mg/dL (70-110)
[2022-01-30] MEDS: SODIUM CHLORIDE 0.9% 1,000 ML IV SCH ×2 (02:29→09:12)
[2022-01-30 06:01] LABS: Glucose,Whole Blood 126 mg/dL (70-110)
[2022-01-30 07:50] LABS: ALT 35 U/L (4-49); AST 121 U/L (17-59); African American GFR (CKD) >90 (>60 ml/min/1.73 sqM); Albumin 2.4 g/dL (3.5-5.0); Alkaline Phosphatase 668 U/L (38-126); Anion Gap 12 mmol/L; Blood Urea Nitrogen 14 mg/dL (9-20); Calcium 7.3 mg/dL (8.4-10.2); Carbon Dioxide 21 mmol/L (22-30); Chloride 96 mmol/L (98-107); Glucose 106 mg/dL (74-99); Magnesium 1.6 mg/dL (1.6-2.3); Non-African American GFR(CKD) >90 (>60 ml/min/1.73 sqM); Potassium 3.4 mmol/L (3.5-5.1); Sodium 129 mmol/L (137-145); Total Bilirubin 12.1 mg/dL (0.2-1.3); Total Protein 5.5 g/dL (6.3-8.2)
[2022-01-30 07:52] LABS: Basophils % (A) 0 %; Eosinophils # (A) 0.1 k/uL (0-0.7); Eosinophils % (A) 1 %; HCT 27.2 % (39.0-53.0); Lymphocytes # (A) 1.4 k/uL (1.0-4.8); Lymphocytes % (A) 14 %; MCH 35.9 pg (25.0-35.0); MCV 108.6 fL (80.0-100.0); Macrocytosis Marked; Mean Platelet Volume 9.6; Monocytes # (A) 0.3 k/uL (0-1.0); Monocytes % (A) 3 %; Neutrophils # (A) 8.2 k/uL (1.3-7.7); Neutrophils % (A) 80 %; Platelet Count 180 k/uL (150-450); RBC 2.51 m/uL (4.30-5.90); WBC 10.2 k/uL (3.8-10.6)
[2022-01-30] MEDS: PANTOPRAZOLE 40 MG/10 ML VIAL IV SCH (09:11)
[2022-01-30] MEDS: THIAMINE 100 MG TAB PO SCH (09:12)
[2022-01-30 11:23] VITALS: BMI 26.5
[2022-01-30 11:37] LABS: Glucose,Whole Blood 189 mg/dL (70-110)
[2022-01-30] MEDS ORDERED: Potassium Replacement Protocol 1 EACH MISC MISCELLANE PRN (11:57)
[2022-01-30] MEDS ORDERED: Magnesium Replacement Protocol 1 EACH MISC MISCELLANE PRN (11:57)
[2022-01-30 12:42] LABS: INR 1.3 (<1.2)
[2022-01-30 12:43] LABS: Prothrombin Time 13.6 sec (9.0-12.0)
[2022-01-30] MEDS ORDERED: DEXTROSE 50% SYRINGE 50 ML IVP PRN ×2 (12:47)
[2022-01-30] MEDS: MAGNESIUM SULFATE-D5W PMX 1 GM in DEXTROSE/WATER 1 100ML.BAG IVPB SCH ×2 (14:53→17:24)
[2022-01-30 16:46] LABS: Glucose,Whole Blood 217 mg/dL (70-110)
--- NOTE | 2022-01-30 17:07 | P.CONS ---
History of Present Illness - Reason for Consult Consult date: 01/30/22 Jaundice Requesting physician: Triston Whitt - Chief Complaint weakness - History of Present Illness This is a pleasant 61-year-old male who presented to the emergency department with complaints of generalized weakness. States that he's had some nausea and vomiting over the last 1 week duration. Patient history of diabetes mellitus, hypertension, and daily alcohol consumption. He denies previous history of liver disease. He was noted to have elevated bilirubin on admission. Gastroenterology was consulted for jaundice. Patient states that he drinks a pint and 5-6 beers daily. He has been drinking for 30-40 years. He denies any previous history of liver disease or liver cirrhosis. Patient states he did not realize that he was yellow, however he did state he noticed dark urine starting about one week ago. He denies any significant abdominal pain, however does feel distended. Denies any previous history of ascites or paracentesis. He currently denies any nausea vomiting, pain diarrhea. Home meds include simvastatin metformin and lisinopril. Labs: WBC 10.2 hemoglobin 9.0 hematocrit 27 INR 1.3 sodium 129 potassium 3.4 BUN 14 creatinine 0.5 glucose 106 total bilirubin 12.1 AST 121 ALT [address] abdomen and pelvis reported fatty infiltration of the liver. Minimal atelectasis at the lung base. There is improvement compared to computed tomography scan 06/22/2021 some clearing of pulmonary interstitial edema. Abdominal ascites and fatty liver change compared to 06/22/2021 exam. Mass on the left lateral wall of the urinary bladder and follow-up recommended. Sigmoid diverticulosis. Review of Systems REVIEW OF SYSTEMS: CARDIOPULMONARY: No chest pain or shortness of breath. Gastrointestinal: No abdominal pain. Abdominal distention. No nausea or vomiting. No hematemesis, coffee-ground emesis. No rectal bleeding, or melena. GENITOURINARY: No dysuria or hematuria. Dark urine for the last 1 week duration. MUSCULOSKELETAL: Reports normal range of motion., Joint pain. SKIN: No rashes. No jaundice. ENDOCRINE: No chills, fevers. No excessive weight gain or loss. No polydipsia or polyuria. PSYCHIATRIC: Unremarkable. NEUROLOGY: No change in mental status. Denies dizziness, headache. ENT: Vision unremarkable. CONSTITUTIONAL: No recent weight loss. No fever, chills, night sweats. Increased weakness over the last 1 week duration. Past Medical History Past Medical History: Hypertension Additional Past Medical History / Comment(s): DM type 2, History of Any Multi-Drug Resistant Organisms: None Reported Past Surgical History: Cholecystectomy, Orthopedic Surgery Additional Past Surgical History / Comment(s): KNEE ARTHROSCOPY, PILONIDAL CYST. Past Anesthesia/Blood Transfusion Reactions: No Reported Reaction Past Psychological History: No Psychological Hx Reported Smoking Status: Current every day smoker Past Alcohol Use History: Daily Past Drug Use History: None Reported - Past Family History Father Additional Family Medical History / Comment(s): Colon CA, bone CA, at 78 years old from bone CA Mother Additional Family Medical History / Comment(s): breast CA Medications and Allergies Home Medications Medication Instructions Recorded Confirmed Type Simvastatin [Zocor] 40 mg PO HS 06/22/21 01/29/22 History lisinopriL 40 mg PO DAILY 06/22/21 01/29/22 History metFORMIN HCL [Glucophage] 500 mg PO DAILY 06/22/21 01/29/22 History Allergies Allergy/AdvReac Type Severity Reaction Status Date / Time No Known Allergies Allergy Verified 01/29/22 16:02 Physical Exam Vitals: Vital Signs Temp Pulse Pulse Resp BP BP Pulse Ox 01/30/22 08:00 98.4 F 97 18 103/74 97 01/30/22 04:00 98.0 F 103 H 20 111/71 98 01/30/22 02:00 100 19 01/30/22 00:00 98.3 F 100 19 121/82 96 01/29/22 20:00 97.9 F 101 H 20 116/74 97 01/29/22 18:39 97.9 F 101 H 20 116/74 97 01/29/22 17:25 98 18 122/80 97 01/29/22 15:52 100 18 118/82 98 01/29/22 13:12 97.7 F 98 18 109/82 100 Intake and Output 01/29/22 01/30/22 01/30/22 22:59 06:59 14:59 Intake Total 1460 118 Output Total 200 Balance 1260 118 Intake: Intake, IV Titration 910 Amount Sodium Chloride 0.9% 1, 910 000 ml @ 130 mls/hr IV . Q7H42M [facility] Rx#:[id number] Oral 550 118 Output: Urine 200 Other: Voiding Method Urinal Urinal Urinal Weight 83.915 kg 83.915 kg General appearance: The patient is alert, oriented, appears in no acute distress. HET: Head is normocephalic and atraumatic. Conjunctiva pink. Sclera anicteric. Neck: Supple without lymphadenopathy. Trachea midline. Heart: S1 S2. Regular rate and rhythm. Lungs: Clear to auscultation. Abdomen: Soft, nontender, distended, ascites. No guarding or rigidity. Skin: No rashes. No jaundice. Extremities: Normal skin color and turgor. No pedal edema. Neurological: No focal deficits. Alert and oriented x3. Results CBC & Chem 7: 01/30/22 06:42 01/30/22 06:42 Labs: Abnormal Lab Results - Last 24 Hours (Table) 01/29/22 01/29/22 01/29/22 Range/Units 13:38 13:51 13:51 RBC (4.30-5.90) m/uL Hgb (13.0-17.5) gm/dL Hct (39.0-53.0) % MCV (80.0-100.0) fL MCH (25.0-35.0) pg Neutrophils # (1.3-7.7) k/uL Macrocytosis PT (9.0-12.0) sec INR (<1.2) Sodium 129 L (137-145) mmol/L Potassium (3.5-5.1) mmol/L Chloride 92 L (98-107) mmol/L Carbon Dioxide 19 L (22-30) mmol/L BUN 22 H (9-20) mg/dL Creatinine (0.66-1.25) mg/dL Glucose 143 H (74-99) mg/dL POC Glucose (mg/dL) 167 H (70-110) mg/dL Plasma Lactic Acid Juan 3.2 H* (0.7-2.0) mmol/L Calcium 8.2 L (8.4-10.2) mg/dL Magnesium 1.5 L (1.6-2.3) mg/dL Total Bilirubin 13.6 H (0.2-1.3) mg/dL Conjugated Bilirubin 8.5 H (0.0-0.3) mg/dL Unconjugated Bilirubin 1.7 H (0.0-1.1) mg/dL Delta Bilirubin 3.4 H (0.0-0.2) mg/dL AST 131 H (17-59) U/L Alkaline Phosphatase 776 H (38-126) U/L Ammonia 39 H (<30) umol/L Total Protein (6.3-8.2) g/dL Albumin 3.0 L (3.5-5.0) g/dL Urine Protein (Negative) Urine Ketones (Negative) Urine Blood (Negative) Urine Bilirubin (Negative) Urine Bacteria (None) /hpf Hyaline Casts (0-2) /lpf Urine Mucus (None) /hpf 01/29/22 01/29/22 01/29/22 Range/Units 13:51 13:51 17:24 RBC 2.73 L (4.30-5.90) m/uL Hgb 9.9 L (13.0-17.5) gm/dL Hct 29.4 L (39.0-53.0) % MCV 107.5 H (80.0-100.0) fL MCH 36.3 H (25.0-35.0) pg Neutrophils # (1.3-7.7) k/uL Macrocytosis Marked A PT 12.6 H (9.0-12.0) sec INR 1.2 H (<1.2) Sodium (137-145) mmol/L Potassium (3.5-5.1) mmol/L Chloride (98-107) mmol/L Carbon Dioxide (22-30) mmol/L BUN (9-20) mg/dL Creatinine (0.66-1.25) mg/dL Glucose (74-99) mg/dL POC Glucose (mg/dL) (70-110) mg/dL Plasma Lactic Acid Juan (0.7-2.0) mmol/L Calcium (8.4-10.2) mg/dL Magnesium (1.6-2.3) mg/dL Total Bilirubin (0.2-1.3) mg/dL Conjugated Bilirubin (0.0-0.3) mg/dL Unconjugated Bilirubin (0.0-1.1) mg/dL Delta Bilirubin (0.0-0.2) mg/dL AST (17-59) U/L Alkaline Phosphatase (38-126) U/L Ammonia (<30) umol/L Total Protein (6.3-8.2) g/dL Albumin (3.5-5.0) g/dL Urine Protein Trace H (Negative) Urine Ketones 1+ H (Negative) Urine Blood Moderate H (Negative) Urine Bilirubin 4+ H (Negative) Urine Bacteria Rare H (None) /hpf Hyaline Casts 4 H (0-2) /lpf Urine Mucus Occasional H (None) /hpf 01/29/22 01/30/22 01/30/22 Range/Units 20:48 05:59 06:42 RBC 2.51 L (4.30-5.90) m/uL Hgb 9.0 L (13.0-17.5) gm/dL Hct 27.2 L (39.0-53.0) % MCV 108.6 H (80.0-100.0) fL MCH 35.9 H (25.0-35.0) pg Neutrophils # 8.2 H (1.3-7.7) k/uL Macrocytosis Marked A PT (9.0-12.0) sec INR (<1.2) Sodium (137-145) mmol/L Potassium (3.5-5.1) mmol/L Chloride (98-107) mmol/L Carbon Dioxide (22-30) mmol/L BUN (9-20) mg/dL Creatinine (0.66-1.25) mg/dL Glucose (74-99) mg/dL POC Glucose (mg/dL) 154 H 126 H (70-110) mg/dL Plasma Lactic Acid Jaun (0.7-2.0) mmol/L Calcium (8.4-10.2) mg/dL Magnesium (1.6-2.3) mg/dL Total Bilirubin (0.2-1.3) mg/dL Conjugated Bilirubin (0.0-0.3) mg/dL Unconjugated Bilirubin (0.0-1.1) mg/dL Delta Bilirubin (0.0-0.2) mg/dL AST (17-59) U/L Alkaline Phosphatase (38-126) U/L Ammonia (<30) umol/L Total Protein (6.3-8.2) g/dL Albumin (3.5-5.0) g/dL Urine Protein (Negative) Urine Ketones (Negative) Urine Blood (Negative) Urine Bilirubin (Negative) Urine Bacteria (None) /hpf Hyaline Casts (0-2) /lpf Urine Mucus (None) /hpf 01/30/22 01/30/22 Range/Units 06:42 11:35 RBC (4.30-5.90) m/uL Hgb (13.0-17.5) gm/dL Hct (39.0-53.0) % MCV (80.0-100.0) fL MCH (25.0-35.0) pg Neutrophils # (1.3-7.7) k/uL Macrocytosis PT (9.0-12.0) sec INR (<1.2) Sodium 129 L (137-145) mmol/L Potassium 3.4 L (3.5-5.1) mmol/L Chloride 96 L (98-107) mmol/L Carbon Dioxide 21 L (22-30) mmol/L BUN (9-20) mg/dL Creatinine 0.53 L (0.66-1.25) mg/dL Glucose 106 H (74-99) mg/dL POC Glucose (mg/dL) 189 H (70-110) mg/dL Plasma Lactic Acid Juan (0.7-2.0) mmol/L Calcium 7.3 L (8.4-10.2) mg/dL Magnesium (1.6-2.3) mg/dL Total Bilirubin 12.1 H (0.2-1.3) mg/dL Conjugated Bilirubin (0.0-0.3) mg/dL Unconjugated Bilirubin (0.0-1.1) mg/dL Delta Bilirubin (0.0-0.2) mg/dL AST 121 H (17-59) U/L Alkaline Phosphatase 668 H (38-126) U/L Ammonia (<30) umol/L Total Protein 5.5 L (6.3-8.2) g/dL Albumin 2.4 L (3.5-5.0) g/dL Urine Protein (Negative) Urine Ketones (Negative) Urine Blood (Negative) Urine Bilirubin (Negative) Urine Bacteria (None) /hpf Hyaline Casts (0-2) /lpf Urine Mucus (None) /hpf CT scan - abdomen: report reviewed (CT abdomen and pelvis reported fatty infiltration of the liver. Minimal atelectasis at the lung base. There is improvement compared to computed tomography scan 06/22/2021 some clearing of pulmonary interstitial edema. Abdominal ascites and fatty liver change compared to 06/22/2021 exam. Mass on ) Assessment and Plan (1) Decompensation of cirrhosis of liver Narrative/Plan: This is 61-year-old male with significant history of alcohol abuse drinking 1 pint +5-6 beers daily for the last 30-40 years. No previous history of known liver disease. No previous history of paracentesis. Came into the emergency department for weakness was found to have a total bilirubin of 12.1. Patient also has abdominal distention, ascites. Patient has acute alcoholic hepatitis, with decompensation of cirrhosis likely related to alcohol with ascites. Will start patient on diuretics, plan for paracentesis. Current Visit: Yes Status: Acute Code(s): K72.90 - HEPATIC FAILURE, UNSPECIFIED WITHOUT COMA; K74.60 - UNSPECIFIED CIRRHOSIS OF LIVER SNOMED Code(s): 713720459 (2) Jaundice Current Visit: Yes Status: Acute Code(s): R17 - UNSPECIFIED JAUNDICE SNOMED Code(s): 58353080 (3) Ascites Current Visit: Yes Status: Acute Code(s): R18.8 - OTHER ASCITES SNOMED Code(s): 114197622 (4) Acute liver failure Current Visit: Yes Status: Acute Code(s): K72.00 - ACUTE AND SUBACUTE HEPATIC FAILURE WITHOUT COMA SNOMED Code(s): 461995367 (5) Alcohol abuse Current Visit: Yes Status: Acute Code(s): F10.10 - ALCOHOL ABUSE, UNCOMPLICATED SNOMED Code(s): 20946974 (6) Hyponatremia Current Visit: Yes Status: Acute Code(s): E87.1 - HYPO-OSMOLALITY AND HYPONATREMIA SNOMED Code(s): 77334290 (7) Hypokalemia Current Visit: Yes Status: Acute Code(s): E87.6 - HYPOKALEMIA SNOMED Code(s): 14316105 (8) Hypomagnesemia Current Visit: Yes Status: Acute Code(s): E83.42 - HYPOMAGNESEMIA SNOMED Code(s): 482868165 Plan: 1. Continue symptomatic and supportive care 2. Start Lasix 20 mg daily, spironolactone 100 mg daily 3. Low-sodium diet 4. Daily CMP 5. Replace potassium per protocol 6. Paracentesis with fluid studies ordered 7. Encourage/recommend alcohol abstinence Thank you for this consultation, we will continue to follow. Dr. Shanae Braun I agree with the dictator's note, documented as a scribe by Gail Avila.
[2022-01-30] MEDS: INSULIN ASPART (NovoLOG) 100 UNIT/ML VIAL SQ SCH ×2 (17:22→20:46)
[2022-01-30] MEDS: POTASSIUM CHLORIDE ER 20 MEQ TAB.ER PO SCH ×2 (17:23→18:33)
[2022-01-30 20:46] LABS: Glucose,Whole Blood 156 mg/dL (70-110)
[2022-01-30] MEDS: chlordiazePOXIDE 25 MG CAP PO PRN (23:23)
--- NOTE | 2022-01-31 00:21 | HP ---
HISTORY AND PHYSICAL CHIEF COMPLAINT: Weakness and liver failure. HISTORY OF PRESENT ILLNESS: This is a 61-year-old gentleman with a past medical history of hypertension, diabetes mellitus type 2, was drinking heavily up to a pint of alcohol. The patient complains of weakness. The patient came to [facility], found to be severely jaundiced, ascites, abdominal distention. Bilirubin was 12.2. The patient was admitted for evaluation and treatment. There is no history of any fever, rigors, chills at this time. Ammonia is 39. PAST MEDICAL HISTORY: Reviewed include diabetes mellitus and hypertension. HOME MEDICATIONS: Reviewed include Zocor. Doses and rest of medication noted. ALLERGIES: None. FAMILY HISTORY: History of colon cancer. Reviewed. SOCIAL HISTORY: History of smoking. Alcohol. REVIEW OF SYSTEMS: A 14-point review of systems is negative except as mentioned earlier. PHYSICAL EXAMINATION: VITAL SIGNS: Pulse is 116, blood pressure 103/74, respirations 18. HEENT: Conjunctivae is anicteric. NECK: No JVD. CARDIOVASCULAR: S1, S2. RESPIRATIONS: Bilateral scattered rhonchi. ABDOMEN: Soft and distended. Ascites present. LEGS: Bilateral leg edema. NERVOUS SYSTEM: Diffusely weak. SKIN: Jaundiced. LYMPHATICS: No lymphadenopathy. LABS: Reviewed. Bilirubin is 12.1. The rest of the labs are reviewed. ASSESSMENT: 1. Acute hepatic failure secondary to alcoholic liver disease. 2. Hypertension. 3. Diabetes mellitus, type 2. 4. Multiple medical issues. RECOMMENDATIONS: This is a 61-year-old gentleman who presented with multiple complex medical issues, we will monitor the patient closely. I would recommend with current medications and gastroenterology consultation. Avoid hepatotoxic medication. Monitor creatinine. Monitor bilirubin closely. INR is 7.2. Supplement vitamin K. Supplement lytes. Overall prognosis extremely guarded. Alcohol cessation recommended. Further recommendations to follow. Recommend close followup with primary physician after discharge also. The patient understands, agrees. MMODL / IJN: [id number] /
[2022-01-31] MEDS: chlordiazePOXIDE 25 MG CAP PO PRN (04:23)
[2022-01-31 06:04] LABS: Glucose,Whole Blood 143 mg/dL (70-110)
[2022-01-31] MEDS: INSULIN ASPART (NovoLOG) 100 UNIT/ML VIAL SQ SCH ×4 (06:11→17:46)
[2022-01-31] MEDS: SODIUM CHLORIDE 0.9% 1,000 ML IV SCH ×2 (06:48→11:35)
[2022-01-31] MEDS: THIAMINE 100 MG TAB PO SCH (08:34)
[2022-01-31] MEDS: SPIRONOLACTONE 25 MG TAB PO SCH (08:34)
[2022-01-31] MEDS: PANTOPRAZOLE 40 MG/10 ML VIAL IV SCH (08:34)
[2022-01-31 08:45] LABS: Basophils % (A) 0 %; Eosinophils # (A) 0.2 k/uL (0-0.7); Eosinophils % (A) 1 %; HCT 30.2 % (39.0-53.0); HGB 10.1 gm/dL (13.0-17.5); Lymphocytes # (A) 1.7 k/uL (1.0-4.8); Lymphocytes % (A) 13 %; MCH 35.9 pg (25.0-35.0); MCHC 33.4 g/dL (31.0-37.0); MCV 107.7 fL (80.0-100.0); Macrocytosis Marked; Mean Platelet Volume 9.2; Monocytes # (A) 0.5 k/uL (0-1.0); Monocytes % (A) 4 %; Neutrophils # (A) 10.1 k/uL (1.3-7.7); Neutrophils % (A) 79 %; Platelet Count 187 k/uL (150-450); RDW 15.4 % (11.5-15.5); WBC 12.8 k/uL (3.8-10.6)
[2022-01-31 08:59] LABS: ALT 36 U/L (4-49); AST 124 U/L (17-59); African American GFR (CKD) >90 (>60 ml/min/1.73 sqM); Albumin 2.7 g/dL (3.5-5.0); Alkaline Phosphatase 790 U/L (38-126); Anion Gap 14 mmol/L; Blood Urea Nitrogen 12 mg/dL (9-20); Calcium 7.8 mg/dL (8.4-10.2); Carbon Dioxide 19 mmol/L (22-30); Chloride 97 mmol/L (98-107); Glucose 142 mg/dL (74-99); Magnesium 1.8 mg/dL (1.6-2.3); Non-African American GFR(CKD) >90 (>60 ml/min/1.73 sqM); Potassium 3.8 mmol/L (3.5-5.1); Sodium 130 mmol/L (137-145); Total Bilirubin 13.3 mg/dL (0.2-1.3); Total Protein 6.3 g/dL (6.3-8.2)
[2022-01-31] MEDS ORDERED: FUROSEMIDE 20 MG TAB PO SCH (09:00)
[2022-01-31] MEDS ORDERED: LACTULOSE 20 GM/30 ML CUP PO ONE (09:34)
[2022-01-31] MEDS ORDERED: EPINEPHrine 10 ML SYRINGE (0.1 MG/ML) ONE ×2 (10:08→10:30)
[2022-01-31] MEDS ORDERED: SODIUM BICARB 8.4% 50 ML SYR (1 MEQ/ML) ONE (10:08)
[2022-01-31] MEDS ORDERED: NALOXONE 1 MG/ML 2 ML SYRINGE ONE (10:08)
[2022-01-31 10:14] LABS: Glucose,Whole Blood 155 mg/dL (70-110)
[2022-01-31] MEDS ORDERED: propofoL 100 ML IV ONE (10:43)
--- NOTE | 2022-01-31 11:06 | P.EN ---
CODE BLUE Indication: unresponsive Arrived on Scene to find: CPR in progress Initial Rhythm: PEA Code Course: Right ear and CPR progress. It appears that initially started with PEA and monitor. During initial code course he was given 4 doses of epinephrine, 2 doses of bicarb, and 2 of Narcan. Nursing had reported patient stated that his friends brought him in drugs last evening. He was intubated by anesthesia. Patient obtained Rosc and had a blood pressure of 190/115. He was transferred to the ICU. Shortly after arrival to the ICU and being transitioned from one bed to the next he again lost pulses. PEA was on the monitor. Code course this time consisted of epinephrine 3 and bicarb times one. Again Rosc was achieved. BP 187/121. Total Down Time: approx 20 Vital signs reviewed Generall: ill appearing appears oldeer than stated age. Cardiovascular: S1S2 reg, no murmur, + femoral pulse X 2, Lungs: equal and course bilateral Abdominal: distended, soft Ext: no gross muscle atrophy, no edema, no contractures Neuro: un responsive no withdrawal to pain, Pupil unequal with left greater than right Assessment: Cardiac arrest Acute liver failure Plan: Recommned CT head CXR Lactic acid ABG Repeat CBC, CMP, Mg, Phos, INR Disposition: Remain in ICU Notified: Dr. Tania Whitt A Total of 40 minutes of critical care time was spent on the complex care of this patient.
[2022-01-31 11:16] LABS: Glucose,Whole Blood 182 mg/dL (70-110)
--- NOTE | 2022-01-31 11:16 | XR ---
EXAMINATION TYPE: XR chest 1V portable DATE OF EXAM: 01/31/2022 11:06 AM COMPARISON: Chest radiographs from 01/29/22 TECHNIQUE: XR chest 1V portable Frontal view of the chest. CLINICAL INDICATION:Male, 61 years old with history of intubation; FINDINGS: Lungs/Pleura: No pleural effusion or pneumothorax. Patchy bibasilar airspace disease which is new fro m prior examination. Pulmonary vascularity: Unremarkable. Heart/mediastinum: Cardiomediastinal silhouette is unremarkable. Atherosclerotic calcifications are seen in the aorta. Musculoskeletal: No acute osseous pathology. Other findings: None Lines/Tubes: Endotracheal tube with distal tip 3.1 cm above the julio cesar Nasogastric tube with its distal tip and side-port projecting under the diaphragm. IMPRESSION: 1. Appropriate position of endotracheal and NG tubes. 2. Interval development of bibasilar patchy opacities. Findings are concerning for pneumonia from po ssible aspiration versus atelectasis.
[2022-01-31 11:37] LABS: ABG HCO3 24 mmol/L (21-25); ABG PCO2 43 mmHg (35-45); ABG PH 7.35 (7.35-7.45); ABG PO2 261 mmHg (83-108); ABG TCO2 25 mmol/L (19-24); Allen Test Performed? Yes
[2022-01-31 12:19] LABS: HGB 9.8 gm/dL (13.0-17.5); Hypochromasia Marked; MCH 37.1 pg (25.0-35.0); MCHC 32.7 g/dL (31.0-37.0); Macrocytosis Marked; Mean Platelet Volume 9.2; Platelet Count 179 k/uL (150-450); RBC 2.64 m/uL (4.30-5.90)
[2022-01-31 12:28] LABS: MCV 113.6 fL (80.0-100.0)
[2022-01-31 12:37] LABS: INR 1.5 (<1.2); Prothrombin Time 15.3 sec (9.0-12.0)
[2022-01-31] MEDS ORDERED: CISATRACURIUM 2 MG/ML 5 ML VIAL IV ONE (12:38)
[2022-01-31 12:39] LABS: ALT 35 U/L (4-49); AST 150 U/L (17-59); African American GFR (CKD) >90 (>60 ml/min/1.73 sqM); Albumin 2.5 g/dL (3.5-5.0); Alkaline Phosphatase 690 U/L (38-126); Anion Gap 15 mmol/L; Blood Urea Nitrogen 12 mg/dL (9-20); Calcium 7.6 mg/dL (8.4-10.2); Carbon Dioxide 17 mmol/L (22-30); Chloride 99 mmol/L (98-107); Glucose 147 mg/dL (74-99); Magnesium 1.8 mg/dL (1.6-2.3); Non-African American GFR(CKD) >90 (>60 ml/min/1.73 sqM); Phosphorus 2.4 mg/dL (2.5-4.5); Potassium 3.9 mmol/L (3.5-5.1); Sodium 131 mmol/L (137-145); Total Bilirubin 12.7 mg/dL (0.2-1.3); Total Protein 5.7 g/dL (6.3-8.2)
[2022-01-31 12:54] LABS: Amphetamine Screen,Urine Not Detected (NotDetected); Barbiturate Screen,Urine Not Detected (NotDetected); Benzodiazepines Screen,Urine Detected (NotDetected); Cocaine Screen,Urine Not Detected (NotDetected); Methadone Screen, Urine Not Detected (NotDetected); Opiate Screen,Urine Not Detected (NotDetected); Oxycodone Screen, Urine Not Detected (NotDetected); Phencyclidine Screen,Urine Not Detected (NotDetected); Tricyclic Antidepressant,Urine Not Detected (NotDetected); Urn Cannabinoid Scrn Not Detected (NotDetected)
[2022-01-31] MEDS ORDERED: Magnesium Replacement Protocol 1 EACH MISC MISCELLANE PRN (13:22)
[2022-01-31] MEDS: MAGNESIUM SULFATE-D5W PMX 1 GM in DEXTROSE/WATER 1 100ML.BAG IVPB SCH ×2 (13:50→15:28)
--- NOTE | 2022-01-31 13:52 | P.CNPUL ---
History of Present Illness Consult date: 01/31/22 Requesting physician: Kelli Ho Reason for consult: other Chief complaint: Respiratory failure, cardiopulmonary arrest. History of present illness: Pulmonary/critical care consult dated 01/31/2022. 61-year-old white male who presents to the emergency department on January 29, with complaints of weakness, nausea, and vomiting. The patient has a history of daily alcohol abuse, as well as both diabetes and hypertension. He apparently was extremely weak, was not able to eat or drink. Anyway, he was seen in the emergency room, and admitted with a diagnosis of alcohol withdrawal syndrome, and liver failure. This morning, the patient was found unresponsive, with pulseless electrical activity. A CODE BLUE was called. The patient underwent 2 episodes of resuscitation, with eventual return of spontaneous circulation. According to the hospital physician in charge, the patient had about 20 minutes of resuscitation. The patient was intubated on the floor, and transferred to the intensive care unit. We saw the patient in the ICU, room 267. In addition to evaluating his chart, we placed a right radial art line, a left internal jugular triple-lumen catheter, and reintubated the patient. The patient remains on the volume assist control, rate 18, tidal volume 450, FiO2 70%, and PEEP of 5. Arterial blood gases on 100%, show pO2 of 261, pCO2 43, pH is 7.35. The patient is on propofol at 30 mcg/kg/m, norepinephrine at 25.2 mcg/m, and saline at 75 mL an hour. White count 11, hemoglobin 9.8, hematocrit 30, platelet count 179,000. PT 15.3 with an INR 1.5. Sodium 131, potassium 3.9, chlorides 99, CO2 17, anion gap 15, BUN 12, creatinine 0.57. Calcium 7.6. Bilirubin is 12.7. AST 150. Alk phosphatase 690. Ammonia level is elevated at 93. Albumin is 2.5. Drug screens were positive for benzodiazepines. Chest x-ray shows an appropriate position of the endotracheal tube and NG tube. There is interval development of bibasilar patchy opacities. CT of the abdomen and pelvis shows sigmoid diverticulosis, mass on the left lateral wall of the urinary bladder, abdominal ascites, and fatty infiltration of the liver. Review of Systems REVIEW OF SYSTEMS: CONSTITUTIONAL: Review of systems cannot be obtained, as the patient was intubat ed and mechanically ventilated, and sedated. NEUROLOGIC: [ Negative.] HEENT: [ Negative.] CARDIAC: [Negative.] PULMONARY: [Negative.] GI: [Negative.] : [Negative.] RHEUMATOLOGIC: [ Negative.] IMMUNOLOGIC: [ Negative.] ENDOCRINE: [Negative. ] DERMATOLOGIC: [Negative.] Past Medical History Past Medical History: Hypertension Additional Past Medical History / Comment(s): DM type 2, History of Any Multi-Drug Resistant Organisms: None Reported Past Surgical History: Cholecystectomy, Orthopedic Surgery Additional Past Surgical History / Comment(s): KNEE ARTHROSCOPY, PILONIDAL CYST. Past Anesthesia/Blood Transfusion Reactions: No Reported Reaction Past Psychological History: No Psychological Hx Reported Smoking Status: Current every day smoker Past Alcohol Use History: Daily Past Drug Use History: None Reported - Past Family History Father Additional Family Medical History / Comment(s): Colon CA, bone CA, at 78 years old from bone CA Mother Additional Family Medical History / Comment(s): breast CA Medications and Allergies Home Medications Medication Instructions Recorded Confirmed Type Simvastatin [Zocor] 40 mg PO HS 06/22/21 01/29/22 History lisinopriL 40 mg PO DAILY 06/22/21 01/29/22 History metFORMIN HCL [Glucophage] 500 mg PO DAILY 06/22/21 01/29/22 History Allergies Allergy/AdvReac Type Severity Reaction Status Date / Time No Known Allergies Allergy Verified 01/29/22 16:02 Physical Exam Osteopathic Statement: *. No significant issues noted on an osteopathic structural exam other than those noted in the History and Physical/Consult. Vitals: Vital Signs Temp Pulse Pulse Resp BP BP Pulse Ox 01/31/22 13:36 01/31/22 13:15 111 H 18 106/83 94 L 01/31/22 13:05 01/31/22 13:00 117 H 18 111/81 98 01/31/22 12:45 103 H 18 125/85 100 01/31/22 12:30 90 25 H 98/78 100 01/31/22 12:15 97 29 H 98/80 98 01/31/22 12:00 97.6 F 107 H 30 H 86/65 99 01/31/22 11:45 111 H 30 H 77/58 99 01/31/22 11:30 124 H 34 H 80/65 100 01/31/22 11:15 91/50 100 01/31/22 11:00 124 H 24 105/85 100 01/31/22 10:45 111 H 21 162/98 99 01/31/22 10:38 01/31/22 10:34 100 01/31/22 09:21 107 H 106/75 01/31/22 08:53 122 H 01/31/22 07:52 97.8 F 122 H 18 98/70 96 01/31/22 04:00 97.7 F 102 H 18 105/76 98 01/31/22 02:00 116 H 20 01/31/22 00:00 97.9 F 119 H 20 109/76 95 01/30/22 20:00 98.6 F 130 H 22 117/82 94 L 01/30/22 16:00 98.1 F 103 H 18 106/71 96 01/30/22 14:00 106 H FiO2 01/31/22 13:36 50 01/31/22 13:15 70 01/31/22 13:05 50 01/31/22 13:00 01/31/22 12:45 01/31/22 12:30 01/31/22 12:15 01/31/22 12:00 100 01/31/22 11:45 01/31/22 11:30 01/31/22 11:15 01/31/22 11:00 01/31/22 10:45 01/31/22 10:38 100 01/31/22 10:34 01/31/22 09:21 01/31/22 08:53 01/31/22 07:52 01/31/22 04:00 01/31/22 02:00 01/31/22 00:00 01/30/22 20:00 01/30/22 16:00 01/30/22 14:00 Intake and Output 01/30/22 01/31/22 01/31/22 22:59 06:59 14:59 Intake Total 118 1075 Output Total 250 125 Balance -132 950 Intake: Intake, IV Titration 1075 Amount Sodium Chloride 0.9% 1, 1075 000 ml @ 75 mls/hr IV . [id number] [facility] Rx#:[id number] Oral 118 Output: Urine 250 125 Other: Voiding Method Urinal Urinal Urinal # Voids 3 No acute distress, sedated, with an orally placed endotracheal tube and NG tube. HEENT examination is grossly unremarkable. Neck supple. Full range of motion. No adenopathy thyromegaly or neck vein distention. Cardiovascular examination reveals regular rhythm rate. S1-S2 normal. No S3 or S4. No discernible murmur noted. Heart sounds are distant. Heart rate 111 bpm. Lungs reveal bilateral coarse rhonchi. Breath sounds equal bilaterally. No wheezes or crackles. Saturations are 94%. FiO2 is 50% on the ventilator. Abdomen is mildly distended. No bowel sounds are noted. Extremities are intact. No cyanosis clubbing or edema. Skin is without rash or lesion. Neurologic examination cannot be adequately assessed. Results - Laboratory Findings CBC and BMP: 01/31/22 12:05 01/31/22 12:05 ABG ABG pH 7.35 (7.35-7.45) 01/31/22 11:35 ABG pCO2 43 mmHg (35-45) 01/31/22 11:35 ABG pO2 261 mmHg (83-108) H 01/31/22 11:35 ABG O2 Saturation 100.0 % (94-97) H 01/31/22 11:35 PT/INR, D-dimer PT 15.3 sec (9.0-12.0) H 01/31/22 12:05 INR 1.5 (<1.2) H 01/31/22 12:05 Abnormal lab findings: Abnormal Labs 01/29/22 01/29/22 01/29/22 13:38 13:51 13:51 WBC RBC Hgb Hct MCV MCH Neutrophils # Macrocytosis PT INR ABG pO2 ABG Total CO2 ABG O2 Saturation Sodium 129 L Potassium Chloride 92 L Carbon Dioxide 19 L BUN 22 H Creatinine Glucose 143 H POC Glucose (mg/dL) 167 H Plasma Lactic Acid Juan 3.2 H* Calcium 8.2 L Phosphorus Magnesium 1.5 L Total Bilirubin 13.6 H Conjugated Bilirubin 8.5 H Unconjugated Bilirubin 1.7 H Delta Bilirubin 3.4 H AST 131 H Alkaline Phosphatase 776 H Ammonia 39 H Total Protein Albumin 3.0 L Urine Protein Urine Ketones Urine Blood Urine Bilirubin Urine Bacteria Hyaline Casts Urine Mucus U Benzodiazepines Scrn 01/29/22 01/29/22 01/29/22 13:51 13:51 17:24 WBC RBC 2.73 L Hgb 9.9 L Hct 29.4 L MCV 107.5 H MCH 36.3 H Neutrophils # Macrocytosis Marked A PT 12.6 H INR 1.2 H ABG pO2 ABG Total CO2 ABG O2 Saturation Sodium Potassium Chloride Carbon Dioxide BUN Creatinine Glucose POC Glucose (mg/dL) Plasma Lactic Acid Juan Calcium Phosphorus Magnesium Total Bilirubin Conjugated Bilirubin Unconjugated Bilirubin Delta Bilirubin AST Alkaline Phosphatase Ammonia Total Protein Albumin Urine Protein Trace H Urine Ketones 1+ H Urine Blood Moderate H Urine Bilirubin 4+ H Urine Bacteria Rare H Hyaline Casts 4 H Urine Mucus Occasional H U Benzodiazepines Scrn 01/29/22 01/30/22 01/30/22 20:48 05:59 06:42 WBC RBC 2.51 L Hgb 9.0 L Hct 27.2 L MCV 108.6 H MCH 35.9 H Neutrophils # 8.2 H Macrocytosis Marked A PT INR ABG pO2 ABG Total CO2 ABG O2 Saturation Sodium Potassium Chloride Carbon Dioxide BUN Creatinine Glucose POC Glucose (mg/dL) 154 H 126 H Plasma Lactic Acid Juan Calcium Phosphorus Magnesium Total Bilirubin Conjugated Bilirubin Unconjugated Bilirubin Delta Bilirubin AST Alkaline Phosphatase Ammonia Total Protein Albumin Urine Protein Urine Ketones Urine Blood Urine Bilirubin Urine Bacteria Hyaline Casts Urine Mucus U Benzodiazepines Scrn 01/30/22 01/30/22 01/30/22 06:42 11:35 12:07 WBC RBC Hgb Hct MCV MCH Neutrophils # Macrocytosis PT 13.6 H INR 1.3 H ABG pO2 ABG Total CO2 ABG O2 Saturation Sodium 129 L Potassium 3.4 L Chloride 96 L Carbon Dioxide 21 L BUN Creatinine 0.53 L Glucose 106 H POC Glucose (mg/dL) 189 H Plasma Lactic Acid Juan Calcium 7.3 L Phosphorus Magnesium Total Bilirubin 12.1 H Conjugated Bilirubin Unconjugated Bilirubin Delta Bilirubin AST 121 H Alkaline Phosphatase 668 H Ammonia Total Protein 5.5 L Albumin 2.4 L Urine Protein Urine Ketones Urine Blood Urine Bilirubin Urine Bacteria Hyaline Casts Urine Mucus U Benzodiazepines Scrn 01/30/22 01/30/22 01/31/22 16:43 20:44 06:03 WBC RBC Hgb Hct MCV MCH Neutrophils # Macrocytosis PT INR ABG pO2 ABG Total CO2 ABG O2 Saturation Sodium Potassium Chloride Carbon Dioxide BUN Creatinine Glucose POC Glucose (mg/dL) 217 H 156 H 143 H Plasma Lactic Acid Juan Calcium Phosphorus Magnesium Total Bilirubin Conjugated Bilirubin Unconjugated Bilirubin Delta Bilirubin AST Alkaline Phosphatase Ammonia Total Protein Albumin Urine Protein Urine Ketones Urine Blood Urine Bilirubin Urine Bacteria Hyaline Casts Urine Mucus U Benzodiazepines Scrn 01/31/22 01/31/22 01/31/22 08:28 08:28 08:28 WBC 12.8 H RBC 2.80 L Hgb 10.1 L Hct 30.2 L MCV 107.7 H MCH 35.9 H Neutrophils # 10.1 H Macrocytosis Marked A PT INR ABG pO2 ABG Total CO2 ABG O2 Saturation Sodium 130 L Potassium Chloride 97 L Carbon Dioxide 19 L BUN Creatinine 0.55 L Glucose 142 H POC Glucose (mg/dL) Plasma Lactic Acid Juan Calcium 7.8 L Phosphorus Magnesium Total Bilirubin 13.3 H Conjugated Bilirubin Unconjugated Bilirubin Delta Bilirubin AST 124 H Alkaline Phosphatase 790 H Ammonia 101 H Total Protein Albumin 2.7 L Urine Protein Urine Ketones Urine Blood Urine Bilirubin Urine Bacteria Hyaline Casts Urine Mucus U Benzodiazepines Scrn 01/31/22 01/31/22 01/31/22 10:13 11:15 11:35 WBC RBC Hgb Hct MCV MCH Neutrophils # Macrocytosis PT INR ABG pO2 261 H ABG Total CO2 25 H ABG O2 Saturation 100.0 H Sodium Potassium Chloride Carbon Dioxide BUN Creatinine Glucose POC Glucose (mg/dL) 155 H 182 H Plasma Lactic Acid Juan Calcium Phosphorus Magnesium Total Bilirubin Conjugated Bilirubin Unconjugated Bilirubin Delta Bilirubin AST Alkaline Phosphatase Ammonia Total Protein Albumin Urine Protein Urine Ketones Urine Blood Urine Bilirubin Urine Bacteria Hyaline Casts Urine Mucus U Benzodiazepines Scrn 01/31/22 01/31/22 01/31/22 12:05 12:05 12:05 WBC 11.0 H RBC 2.64 L Hgb 9.8 L Hct 30.0 L MCV 113.6 H D MCH 37.1 H Neutrophils # Macrocytosis Marked A PT 15.3 H INR 1.5 H ABG pO2 ABG Total CO2 ABG O2 Saturation Sodium 131 L Potassium Chloride Carbon Dioxide 17 L BUN Creatinine 0.57 L Glucose 147 H POC Glucose (mg/dL) Plasma Lactic Acid Juan Calcium 7.6 L Phosphorus 2.4 L Magnesium Total Bilirubin 12.7 H Conjugated Bilirubin Unconjugated Bilirubin Delta Bilirubin AST 150 H Alkaline Phosphatase 690 H Ammonia Total Protein 5.7 L Albumin 2.5 L Urine Protein Urine Ketones Urine Blood Urine Bilirubin Urine Bacteria Hyaline Casts Urine Mucus U Benzodiazepines Scrn 01/31/22 01/31/22 12:05 12:07 WBC RBC Hgb Hct MCV MCH Neutrophils # Macrocytosis PT INR ABG pO2 ABG Total CO2 ABG O2 Saturation Sodium Potassium Chloride Carbon Dioxide BUN Creatinine Glucose POC Glucose (mg/dL) Plasma Lactic Acid Juan Calcium Phosphorus Magnesium Total Bilirubin Conjugated Bilirubin Unconjugated Bilirubin Delta Bilirubin AST Alkaline Phosphatase Ammonia 93 H Total Protein Albumin Urine Protein Urine Ketones Urine Blood Urine Bilirubin Urine Bacteria Hyaline Casts Urine Mucus U Benzodiazepines Scrn Detected H - Diagnostic Findings Chest x-ray: image reviewed Assessment and Plan Assessment: Status post cardiopulmonary arrest, with pulseless electrical activity, status post cardiopulmonary resuscitation with return of spontaneous circulation, after 20 minutes of resuscitation. Status post intubation and mechanical ventilation on 01/31/2022, for cardiopulmonary arrest. Alcoholic liver disease. Chronic alcohol abuse. Recent lymph node biopsy, potentially consistent with cutaneous T-cell lymphoma. Nicotine dependence syndrome. History of diabetes mellitus. History of hypertension. History of hyperlipidemia. Severe hyperbilirubinemia. Hepatic encephalopathy with hyperammonemia. Hypoalbuminemia. Anion gap metabolic acidosis. Plan: Plan dated 01/31/2022. A radial art line was placed for better blood pressure monitoring. The patient is maintained on norepinephrine at 25 mcg/m. Also, a left internal jugular triple-lumen catheter was placed. Labs, x-rays, medications are reviewed. Prognosis is certainly very poor. The patient's medications are reviewed and unnecessary medications are discontinued. The patient will need lactulose for his hyperammonemia. The patient should be on albuterol sulfate and ipratropium bromide, every 4 hours [id number]. We will continue to follow make recommendations along the way. Time with Patient: Greater than 30
[2022-01-31] MEDS: NOREPINEPHRINE 4 MG in SODIUM CHLORIDE 0.9% 250 ML IV SCH (14:02)
--- NOTE | 2022-01-31 14:36 | XR ---
EXAMINATION TYPE: XR chest 1V confirm line [facility] DATE OF EXAM: 01/31/2022 CLINICAL HISTORY: Status post reintubation and left internal jugular central line placement. TECHNIQUE: Single AP portable supine view of the chest is obtained. COMPARISON: Chest x-ray from earlier today FINDINGS: Stable appearance of orogastric tube. Endotracheal tube terminates superior aortic knob le vladimir on current study. There is new left internal jugular central venous catheter terminating in SVC. Right basilar increased opacities redemonstrated. Cardiac silhouette size stable and within normal li mits. Osseous structures are intact. IMPRESSION: No pneumothorax after central line placement. Satisfactory positioning of endotracheal tu be after reintubation. Stable bibasilar acute infiltrates and/or atelectasis noted.
--- NOTE | 2022-01-31 14:37 | P.PN ---
Subjective Progress Note Date: 01/31/22 Principal diagnosis: Acute liver failure, jaundice This is a pleasant 61-year-old male who presented to the emergency department with complaints of generalized weakness. States that he's had some nausea and vomiting over the last 1 week duration. Patient history of diabetes mellitus, hypertension, and daily alcohol consumption. He denies previous history of liver disease. He was noted to have elevated bilirubin on admission. Gastroenterology was consulted for jaundice. Patient states that he drinks a pint and 5-6 beers daily. He has been drinking for 30-40 years. He denies any previous history of liver disease or liver cirrhosis. Patient states he did not realize that he was yellow, however he did state he noticed dark urine starting about one week ago. He denies any significant abdominal pain, however does feel distended. Denies any previous history of ascites or paracentesis. He currently denies any nausea vomiting, pain diarrhea. Home meds include s imvastatin metformin and lisinopril. Labs: WBC 10.2 hemoglobin 9.0 hematocrit 27 INR 1.3 sodium 129 potassium 3.4 BUN 14 creatinine 0.5 glucose 106 total bilirubin 12.1 AST 121 ALT [address] abdomen and pelvis reported fatty infiltration of the liver. Minimal atelectasis at the lung base. There is improvement compared to computed tomography scan 06/22/2021 some clearing of pulmonary interstitial edema. Abdominal ascites and fatty liver change compared to 06/22/2021 exam. Mass on the left lateral wall of the urinary bladder and follow-up recommended. Sigmoid diverticulosis. 01/01/2022: The patient was seen and examined today as follow-up. He seemed definitely more confused today. He knows his name however thought he was at home. Patient is requesting paracentesis be rescheduled and he is declining at this time. Nursing is reporting that patient is stating that he was given pills from a friend that visited yesterday evening. Unsure patient was hallucinating, likely going through detox as well as hepatic encephalopathy with elevated ammonia level at 100 today. LFTs continue to be elevated. Objective - Vital Signs Vital signs: Vital Signs Temp 97.8 F 01/31/22 07:52 Pulse 122 H 01/31/22 08:53 Resp 18 01/31/22 07:52 BP 98/70 01/31/22 07:52 Pulse Ox 96 01/31/22 07:52 FiO2 Intake & Output 01/30/22 01/31/22 01/31/22 18:59 06:59 18:59 Intake Total 236 Output Total 200 250 Balance 36 -250 Weight 83.915 kg Intake: Oral 236 Output: Urine 200 250 Other: Voiding Method Urinal Urinal Urinal # Voids 1 3 - Exam General appearance: The patient is alert, oriented, appears in no acute distress. HET: Head is normocephalic and atraumatic. Conjunctiva pink. Sclera deeply icteric. Neck: Supple without lymphadenopathy. Abdomen: Soft, nontender, distended, ascites. No guarding or rigidity. Extremities: Normal skin color and turgor. No pedal edema Skin: No rashes, jaundice. Neurological: No focal deficits. Alert and oriented to self. - Labs CBC & Chem 7: 01/31/22 12:05 01/31/22 12:05 Labs: Abnormal Lab Results - Last 24 Hours (Table) 01/30/22 01/30/22 01/30/22 Range/Units 11:35 12:07 16:43 WBC (3.8-10.6) k/uL RBC (4.30-5.90) m/uL Hgb (13.0-17.5) gm/dL Hct (39.0-53.0) % MCV (80.0-100.0) fL MCH (25.0-35.0) pg Neutrophils # (1.3-7.7) k/uL Macrocytosis PT 13.6 H (9.0-12.0) sec INR 1.3 H (<1.2) Sodium (137-145) mmol/L Chloride (98-107) mmol/L Carbon Dioxide (22-30) mmol/L Creatinine (0.66-1.25) mg/dL Glucose (74-99) mg/dL POC Glucose (mg/dL) 189 H 217 H (70-110) mg/dL Calcium (8.4-10.2) mg/dL Total Bilirubin (0.2-1.3) mg/dL AST (17-59) U/L Alkaline Phosphatase (38-126) U/L Ammonia (<30) umol/L Albumin (3.5-5.0) g/dL 01/30/22 01/31/22 01/31/22 Range/Units 20:44 06:03 08:28 WBC 12.8 H (3.8-10.6) k/uL RBC 2.80 L (4.30-5.90) m/uL Hgb 10.1 L (13.0-17.5) gm/dL Hct 30.2 L (39.0-53.0) % MCV 107.7 H (80.0-100.0) fL MCH 35.9 H (25.0-35.0) pg Neutrophils # 10.1 H (1.3-7.7) k/uL Macrocytosis Marked A PT (9.0-12.0) sec INR (<1.2) Sodium (137-145) mmol/L Chloride (98-107) mmol/L Carbon Dioxide (22-30) mmol/L Creatinine (0.66-1.25) mg/dL Glucose (74-99) mg/dL POC Glucose (mg/dL) 156 H 143 H (70-110) mg/dL Calcium (8.4-10.2) mg/dL Total Bilirubin (0.2-1.3) mg/dL AST (17-59) U/L Alkaline Phosphatase (38-126) U/L Ammonia (<30) umol/L Albumin (3.5-5.0) g/dL 01/31/22 01/31/22 Range/Units 08:28 08:28 WBC (3.8-10.6) k/uL RBC (4.30-5.90) m/uL Hgb (13.0-17.5) gm/dL Hct (39.0-53.0) % MCV (80.0-100.0) fL MCH (25.0-35.0) pg Neutrophils # (1.3-7.7) k/uL Macrocytosis PT (9.0-12.0) sec INR (<1.2) Sodium 130 L (137-145) mmol/L Chloride 97 L (98-107) mmol/L Carbon Dioxide 19 L (22-30) mmol/L Creatinine 0.55 L (0.66-1.25) mg/dL Glucose 142 H (74-99) mg/dL POC Glucose (mg/dL) (70-110) mg/dL Calcium 7.8 L (8.4-10.2) mg/dL Total Bilirubin 13.3 H (0.2-1.3) mg/dL AST 124 H (17-59) U/L Alkaline Phosphatase 790 H (38-126) U/L Ammonia 101 H (<30) umol/L Albumin 2.7 L (3.5-5.0) g/dL Assessment and Plan (1) Decompensation of cirrhosis of liver Narrative/Plan: This is 61-year-old male with significant history of alcohol abuse drinking 1 pint +5-6 beers daily for the last 30-40 years. No previous history of known liver disease. No previous history of paracentesis. Came into the emergency department for weakness was found to have a total bilirubin of 12.1. Patient also has abdominal distention, ascites. Patient has acute alcoholic hepatitis, with decompensation of cirrhosis likely related to alcohol with ascites. Will start patient on diuretics, plan for paracentesis. After initial exam patient was found unresponsive, CODE GERALD was called and CPR was initiated for 20 minutes. Patient was intubated and sent to the ICU. Patient's sister and mother at the bedside. Discussed there is a possibility for some improvement in his liver disease as patient quits drinking. Current Visit: Yes Status: Acute Code(s): K72.90 - HEPATIC FAILURE, UNSPECIFIED WITHOUT COMA; K74.60 - UNSPECIFIED CIRRHOSIS OF LIVER SNOMED Code(s): 486524446 (2) Jaundice Current Visit: Yes Status: Acute Code(s): R17 - UNSPECIFIED JAUNDICE SNOMED Code(s): 60636246 (3) Ascites Current Visit: Yes Status: Acute Code(s): R18.8 - OTHER ASCITES SNOMED Code(s): 627802773 (4) Acute liver failure Narrative/Plan: Acute alcoholic hepatitis related to underlying years of alcohol abuse. Current Visit: Yes Status: Acute Code(s): K72.00 - ACUTE AND SUBACUTE HEPATIC FAILURE WITHOUT COMA SNOMED Code(s): 690079471 (5) Alcohol abuse Current Visit: Yes Status: Acute Code(s): F10.10 - ALCOHOL ABUSE, UNCOMPLICATED SNOMED Code(s): 95503713 (6) Hyponatremia Current Visit: Yes Status: Acute Code(s): E87.1 - HYPO-OSMOLALITY AND HYPONATREMIA SNOMED Code(s): 80613451 (7) Hypokalemia Current Visit: Yes Status: Acute Code(s): E87.6 - HYPOKALEMIA SNOMED Code(s): 41773841 (8) Hypomagnesemia Current Visit: Yes Status: Acute Code(s): E83.42 - HYPOMAGNESEMIA SNOMED Code(s): 370250221 Plan: 1. Continue symptomatic and supportive care 2. Continue Lasix 20 mg daily, spironolactone 100 mg daily 3. Lactulose ordered 30 g 3 times a day, titrate to have 2-3 bowel movements daily 4. Daily CBC, CMP, ammonia 5. Replace potassium per protocol 6. Paracentesis with fluid studies ordered 7. Encourage/recommend alcohol abstinence 8. Continue ICU management Thank you for this consultation, we will continue to follow. Dr. Shanae Braun I agree with the dictator's note, documented as a scribe by Gail Avila.
[2022-01-31] MEDS: IPRATROPIUM-ALBUTEROL 3 ML NEB INHALATION SCH ×2 (15:29→20:31)
[2022-01-31] MEDS: LACTULOSE 20 GM/30 ML CUP PO SCH ×2 (15:38→21:56)
[2022-01-31 16:38] LABS: Hepatitis A Antibody IgM Nonreactive (Nonreactive); Hepatitis B Core IgM Nonreactive (Nonreactive); Hepatitis B Surface Antigen Nonreactive (Nonreactive); Hepatitis C IgG Antibody Nonreactive (Nonreactive)
--- NOTE | 2022-01-31 17:12 | CT ---
EXAMINATION TYPE: CT brain wo con CT DLP: 1176.4 mGycm, Automated exposure control for dose reduction was used. DATE OF EXAM: 01/31/2022 5:02 PM COMPARISON: . CLINICAL INDICATION:Male, 61 years old with history of unequal pupils, ams/unresponsive TECHNIQUE: Brain: Axial CT images of the brain were obtained with coronal and sagittal reformats created and rev iewed. Contrast used: None. Oral contrast used: None. FINDINGS: Brain: Extra-axial spaces: No abnormal extra-axial fluid collections. Ventricular system: Within normal limits Cerebral parenchyma: No acute intraparenchymal hemorrhage or mass effect. The hutchins-white junction is well differentiated. Cerebellum: Unremarkable. Mass effect: No evidence of midline shift. Intracranial vasculature: Atherosclerotic calcifications of the intracranial vessels. Soft tissues: Normal. Calvarium/osseous structures: No depressed skull fracture. Paranasal sinuses and mastoid air cells: Clear Visualized orbits: Orbital contents are intact. IMPRESSION: No acute intracranial process.
[2022-01-31] MEDS: NOREPINEPHRINE 32 MG in SODIUM CHLORIDE 0.9% 218 ML IV SCH (17:15)
[2022-01-31 17:21] LABS: Glucose,Whole Blood 203 mg/dL (70-110)
[2022-01-31] MEDS: CHLORHEXIDINE GLUCONATE 15 ML CUP MUCOUS MEM SCH (21:56)
--- NOTE | 2022-01-31 22:15 | PCN ---
PROCEDURE NOTE PROCEDURE PERFORMED: Left internal jugular triple-lumen catheter. PREOPERATIVE DIAGNOSES: Administration of fluids and pressors, and hypotension. POSTOPERATIVE DIAGNOSES: Administration of fluids and pressors, and hypotension. OPERATORS: Dr. Marin and Dr. Montenegro. There was informed consent and universal timeout. The patient's procedure took place in room 267. We used the left internal jugular vein. TRIPLE LUMEN CATHETER PLACEMENT: Indication: Hemodynamic monitoring/Intravenous access. A time-out was completed verifying correct patient, procedure, site, positioning, and implant(s) or special equipment if applicable. The patient was placed in a dependent position appropriate for triple lumen catheter placement based on the vein to be cannulated. The patient's left shoulder or left neck or left groin was prepped and draped in sterile fashion. 1% Lidocaine was used to anesthetize the surrounding skin area. A triple lumen 9F Cordis catheter was introduced into the left subclavian or internal jugular or common femoral vein using Seldinger technique. The catheter was threaded smoothly over the guide wire and appropriate blood return was obtained. Each lumen of the catheter was evacuated of air and flushed with sterile saline. The catheter was then sutured in place to the skin and a sterile dressing applied. Perfusion to the extremity distal to the point of catheter insertion was checked and found to be adequate. There was no immediate complication. There was good blood return from all 3 ports. The patient tolerated the procedure well. The catheter was sutured in place. Sterile dressing was applied by the nurse. There was no immediate complication. A chest x-ray was ordered. The tip of the catheter was seen in the junction of the right atrium and superior vena cava. MMODL / IJN: [id number] /
--- NOTE | 2022-01-31 22:19 | PCN ---
PROCEDURE NOTE PROCEDURE PERFORMED: Intubation. PREOPERATIVE DIAGNOSES: Respiratory failure, failed photogrammetry airplane pilot balloon on endotracheal tube. POSTOPERATIVE DIAGNOSES: Respiratory failure, failed photogrammetry airplane pilot balloon on endotracheal tube. OPERATORS: Dr. Marin and Dr. Montenegro. DESCRIPTION OF PROCEDURE: The patient was placed on 100% oxygen. The patient was intubated. We used the Bougie or stylet, to go down the old endotracheal tube. The old endotracheal tube was removed. A #8 endotracheal tube was placed over the stylet. The stylet was removed. There was good color return on the qualitative capnograph. The balloon was inflated. The endotracheal tube was secured. The patient was reconnected to the mechanical ventilator. There was no immediate complication. A chest x-ray was again ordered to check placement and make sure that the endotracheal tube was properly placed within the trachea. There was informed consent and universal timeout. There was no immediate complications. The patient did tolerate the procedure well. MMODL / IJN: [id number] /
--- NOTE | 2022-01-31 22:19 | PCN ---
PROCEDURE NOTE PROCEDURE PERFORMED: Right radial art line. PREOPERATIVE DIAGNOSES: Hypotension, sepsis, need for norepinephrine. POSTOPERATIVE DIAGNOSES: Hypotension, sepsis, need for norepinephrine. OPERATORS: Dr. Marin and Dr. Montenegro. ARTERIAL LINE PLACEMENT: Indications: Hemodynamic monitoring. A time-out was completed verifying correct patient, procedure, site, positioning, and implant(s) or special equipment if applicable. Donovan's test was performed to ensure adequate perfusion. The patient's right wrist or right groin was prepped and draped in sterile fashion. 1% Lidocaine was used to anesthetize the area. An 18G Arrow arterial line was introduced into the right radial artery. The catheter was threaded over the guide wire and the needle was removed with appropriate pulsatile blood return. Blood loss was minimal. The catheter was then sutured in place to the skin and a sterile dressing applied. Perfusion to the extremity distal to the point of catheter insertion was checked and found to be adequate. The patient tolerated the procedure well and there were no complications. We used a right radial artery. There was no immediate complication. There was good blood return and waveform. The patient tolerated the procedure well. There was no immediate complication. The catheter was sutured in place and a sterile dressing was applied by the nurse. MMODL / IJN: [id number] /
[2022-02-01 00:03] LABS: Glucose,Whole Blood 188 mg/dL (70-110)
[2022-02-01] MEDS: INSULIN ASPART (NovoLOG) 100 UNIT/ML VIAL SQ SCH ×4 (00:25→18:50)
[2022-02-01] MEDS: IPRATROPIUM-ALBUTEROL 3 ML NEB INHALATION SCH ×7 (01:29→23:47)
[2022-02-01] MEDS: SODIUM CHLORIDE 0.9% 1,000 ML IV SCH ×2 (01:30→16:54)
[2022-02-01 05:29] LABS: Glucose,Whole Blood 204 mg/dL (70-110)
[2022-02-01 05:47] LABS: ALT 36 U/L (4-49); AST 122 U/L (17-59); African American GFR (CKD) >90 (>60 ml/min/1.73 sqM); Albumin 2.2 g/dL (3.5-5.0); Alkaline Phosphatase 637 U/L (38-126); Anion Gap 9 mmol/L; Blood Urea Nitrogen 14 mg/dL (9-20); Calcium 7.2 mg/dL (8.4-10.2); Carbon Dioxide 22 mmol/L (22-30); Chloride 103 mmol/L (98-107); Glucose 183 mg/dL (74-99); Magnesium 1.9 mg/dL (1.6-2.3); Non-African American GFR(CKD) >90 (>60 ml/min/1.73 sqM); Potassium 3.6 mmol/L (3.5-5.1); Sodium 134 mmol/L (137-145); Total Bilirubin 11.3 mg/dL (0.2-1.3); Total Protein 5.2 g/dL (6.3-8.2)
[2022-02-01 05:51] LABS: ABG Base Excess 0.2 mmol/L; ABG HCO3 24 mmol/L (21-25); ABG Oxygen Saturation 98.7 % (94-97); ABG PCO2 36 mmHg (35-45); ABG PH 7.44 (7.35-7.45); ABG PO2 101 mmHg (83-108); ABG TCO2 26 mmol/L (19-24); Allen Test Performed? Yes
[2022-02-01 05:55] LABS: Anisocytosis Slight; Basophils % (A) 0 %; Eosinophils # (A) 0.1 k/uL (0-0.7); Eosinophils % (A) 0 %; HCT 28.4 % (39.0-53.0); HGB 9.3 gm/dL (13.0-17.5); Lymphocytes # (A) 1.7 k/uL (1.0-4.8); Lymphocytes % (A) 9 %; MCH 34.9 pg (25.0-35.0); MCHC 32.8 g/dL (31.0-37.0); Macrocytosis Moderate; Mean Platelet Volume 9.3; Monocytes # (A) 0.9 k/uL (0-1.0); Monocytes % (A) 5 %; Neutrophils # (A) 14.9 k/uL (1.3-7.7); Neutrophils % (A) 83 %; Platelet Count 253 k/uL (150-450); RBC 2.67 m/uL (4.30-5.90); RDW 16.1 % (11.5-15.5); WBC 17.9 k/uL (3.8-10.6)
[2022-02-01 06:08] LABS: MCV 106.4 fL (80.0-100.0)
--- NOTE | 2022-02-01 07:03 | XR ---
EXAMINATION TYPE: XR chest 1V portable DATE OF EXAM: 02/01/2022 6:13 AM COMPARISON: Chest radiograph from one day prior. TECHNIQUE: XR chest 1V portable Portable AP radiograph of the chest. CLINICAL INDICATION:Male, 61 years old with history of Tube placement; FINDINGS: Lungs/Pleura: Similar multifocal airspace opacities. No evidence of pneumothorax or pleural effusion. Pulmonary vascularity: Unremarkable. Heart/mediastinum: Cardiomediastinal silhouette is unremarkable. Musculoskeletal: No acute osseous pathology. Other findings: None Lines/Tubes: Endotracheal tube with distal tip 4.3 cm above the julio cesar Nasogastric tube with its distal tip and side-port projecting under the diaphragm. [id number] projecting over the left hemithorax with distal tip at the cavoatrial junction. IMPRESSION: 1. Similar airspace opacities. 2. Stable support lines and tubes.
[2022-02-01] MEDS: MAGNESIUM SULFATE-D5W PMX 1 GM in DEXTROSE/WATER 1 100ML.BAG IVPB SCH ×2 (07:11→10:33)
[2022-02-01] MEDS: POTASSIUM CHLORIDE 10 MEQ in WATER FOR INJECTION 1 100ML.BAG IVPB SCH ×2 (07:13→10:20)
--- NOTE | 2022-02-01 10:13 | P.PN ---
Subjective Progress Note Date: 02/01/22 Principal diagnosis: Acute liver failure, jaundice This is a pleasant 61-year-old male who presented to the emergency department with complaints of generalized weakness. States that he's had some nausea and vomiting over the last 1 week duration. Patient history of diabetes mellitus, hypertension, and daily alcohol consumption. He denies previous history of liver disease. He was noted to have elevated bilirubin on admission. Gastroenterology was consulted for jaundice. Patient states that he drinks a pint and 5-6 beers daily. He has been drinking for 30-40 years. He denies any previous history of liver disease or liver cirrhosis. Patient states he did not realize that he was yellow, however he did state he noticed dark urine starting about one week ago. He denies any significant abdominal pain, however does feel distended. Denies any previous history of ascites or paracentesis. He currently denies any nausea vomiting, pain diarrhea. Home meds include s imvastatin metformin and lisinopril. Labs: WBC 10.2 hemoglobin 9.0 hematocrit 27 INR 1.3 sodium 129 potassium 3.4 BUN 14 creatinine 0.5 glucose 106 total bilirubin 12.1 AST 121 ALT [address] abdomen and pelvis reported fatty infiltration of the liver. Minimal atelectasis at the lung base. There is improvement compared to computed tomography scan 06/22/2021 some clearing of pulmonary interstitial edema. Abdominal ascites and fatty liver change compared to 06/22/2021 exam. Mass on the left lateral wall of the urinary bladder and follow-up recommended. Sigmoid diverticulosis. 01/01/2022: The patient was seen and examined today as follow-up. He seemed definitely more confused today. He knows his name however thought he was at home. Patient is requesting paracentesis be rescheduled and he is declining at this time. Nursing is reporting that patient is stating that he was given pills from a friend that visited yesterday evening. Unsure patient was hallucinating, likely going through detox as well as hepatic encephalopathy with elevated ammonia level at 100 today. LFTs continue to be elevated. 01/02/2022: Patient seen and examined today in the ICU. Yesterday patient became nonresponsive and was asystole. CPR was started and continued for 20 minutes. He was intubated and sent to the ICU. He remains sedated and intubated. No acute changes through the night. He does have gross hematuria and his Perdue catheter bag. Hemoglobin stable at 9.3 platelet count stable at 253,000, LFTs are trending down total bilirubin 11.3 AST 122 ALT 36 alkaline ph osphatase 637. Ammonia level currently pending. Patient is having multiple bowel movements on lactulose. Nursing is planning on placing a rectal tube. Objective - Vital Signs Vital signs: Vital Signs Temp 98.7 F 02/01/22 07:00 Pulse 107 H 02/01/22 07:39 Resp 27 H 02/01/22 06:45 BP 103/77 02/01/22 07:15 Pulse Ox 97 02/01/22 07:15 FiO2 50 02/01/22 07:53 Intake & Output 01/31/22 02/01/22 02/01/22 18:59 06:59 18:59 Intake Total 1500 1123.659 604 Output Total 365 340 45 Balance 1135 783.659 559 Weight 83.9 kg Intake: IV 750 150 Sodium Chloride 0.9% 1, 750 150 000 ml @ 75 mls/hr IV . [id number] [facility] Rx#:[id number] Intake, IV Titration 1500 333.659 454 Amount Magnesium Sulfate-D5w Pmx 200 1 gm In Dextrose/Water 1 100ml.bag @ 100 mls/hr IVPB Q1H [facility] Rx#: [id number] Magnesium Sulfate-D5w Pmx 100 1 gm In Dextrose/Water 1 100ml.bag @ 100 mls/hr IVPB Q1H [facility] Rx#: [id number] Norepinephrine 32 mg In 114.312 Sodium Chloride 0.9% 218 ml @ 0.03 MCG/KG/MIN 1.18 mls/hr IV .Q24H [facility] Rx#: [id number] Norepinephrine 4 mg In 254 Sodium Chloride 0.9% 250 ml @ 0.03 MCG/KG/MIN 9. 591 mls/hr IV .Q24H [facility] Rx#:[id number] Potassium Chloride 10 meq 100 In Water For Injection 1 100ml.bag @ 100 mls/hr IVPB Q1H [facility] Rx#: [id number] Sodium Chloride 0.9% 1, 1300 75 000 ml @ 75 mls/hr IV . [id number] [facility] Rx#:[id number] propofoL 1,000 mg In 144.347 Empty Bag 1 bag @ 15 MCG/ KG/MIN 7.552 mls/hr IV . [id number] [facility] Rx#:[id number] Other 40 Output: Urine 365 340 45 Other: Voiding Method Indwelling Catheter Indwelling Catheter Indwelling Catheter ABP, PAP, CO, CI - Last Documented Arterial Blood Pressure 96/59 - Exam General appearance: The patient is sedated and intubated HET: Head is normocephalic and atraumatic. Conjunctiva pink. Sclera deeply icteric. Neck: Supple without lymphadenopathy. Abdomen: Soft, nontender, nondistended. No guarding or rigidity. Extremities: Normal skin color and turgor. No pedal edema Skin: No rashes, jaundice. Neurological: Sedated and intubated. - Labs CBC & Chem 7: 02/01/22 05:25 02/01/22 05:25 Labs: Abnormal Lab Results - Last 24 Hours (Table) 01/31/22 01/31/22 01/31/22 Range/Units 08:28 08:28 08:28 WBC 12.8 H (3.8-10.6) k/uL RBC 2.80 L (4.30-5.90) m/uL Hgb 10.1 L (13.0-17.5) gm/dL Hct 30.2 L (39.0-53.0) % MCV 107.7 H (80.0-100.0) fL MCH 35.9 H (25.0-35.0) pg RDW (11.5-15.5) % Neutrophils # 10.1 H (1.3-7.7) k/uL Macrocytosis Marked A PT (9.0-12.0) sec INR (<1.2) ABG pO2 (83-108) mmHg ABG Total CO2 (19-24) mmol/L ABG O2 Saturation (94-97) % Sodium 130 L (137-145) mmol/L Chloride 97 L (98-107) mmol/L Carbon Dioxide 19 L (22-30) mmol/L Creatinine 0.55 L (0.66-1.25) mg/dL Glucose 142 H (74-99) mg/dL POC Glucose (mg/dL) (70-110) mg/dL Calcium 7.8 L (8.4-10.2) mg/dL Phosphorus (2.5-4.5) mg/dL Total Bilirubin 13.3 H (0.2-1.3) mg/dL AST 124 H (17-59) U/L Alkaline Phosphatase 790 H (38-126) U/L Ammonia 101 H (<30) umol/L Total Protein (6.3-8.2) g/dL Albumin 2.7 L (3.5-5.0) g/dL U Benzodiazepines Scrn (NotDetected) 01/31/22 01/31/22 01/31/22 Range/Units 10:13 11:15 11:35 WBC (3.8-10.6) k/uL RBC (4.30-5.90) m/uL Hgb (13.0-17.5) gm/dL Hct (39.0-53.0) % MCV (80.0-100.0) fL MCH (25.0-35.0) pg RDW (11.5-15.5) % Neutrophils # (1.3-7.7) k/uL Macrocytosis PT (9.0-12.0) sec INR (<1.2) ABG pO2 261 H (83-108) mmHg ABG Total CO2 25 H (19-24) mmol/L ABG O2 Saturation 100.0 H (94-97) % Sodium (137-145) mmol/L Chloride (98-107) mmol/L Carbon Dioxide (22-30) mmol/L Creatinine (0.66-1.25) mg/dL Glucose (74-99) mg/dL POC Glucose (mg/dL) 155 H 182 H (70-110) mg/dL Calcium (8.4-10.2) mg/dL Phosphorus (2.5-4.5) mg/dL Total Bilirubin (0.2-1.3) mg/dL AST (17-59) U/L Alkaline Phosphatase (38-126) U/L Ammonia (<30) umol/L Total Protein (6.3-8.2) g/dL Albumin (3.5-5.0) g/dL U Benzodiazepines Scrn (NotDetected) 01/31/22 01/31/22 01/31/22 Range/Units 12:05 12:05 12:05 WBC 11.0 H (3.8-10.6) k/uL RBC 2.64 L (4.30-5.90) m/uL Hgb 9.8 L (13.0-17.5) gm/dL Hct 30.0 L (39.0-53.0) % MCV 113.6 H D (80.0-100.0) fL MCH 37.1 H (25.0-35.0) pg RDW (11.5-15.5) % Neutrophils # (1.3-7.7) k/uL Macrocytosis Marked A PT 15.3 H (9.0-12.0) sec INR 1.5 H (<1.2) ABG pO2 (83-108) mmHg ABG Total CO2 (19-24) mmol/L ABG O2 Saturation (94-97) % Sodium 131 L (137-145) mmol/L Chloride (98-107) mmol/L Carbon Dioxide 17 L (22-30) mmol/L Creatinine 0.57 L (0.66-1.25) mg/dL Glucose 147 H (74-99) mg/dL POC Glucose (mg/dL) (70-110) mg/dL Calcium 7.6 L (8.4-10.2) mg/dL Phosphorus 2.4 L (2.5-4.5) mg/dL Total Bilirubin 12.7 H (0.2-1.3) mg/dL AST 150 H (17-59) U/L Alkaline Phosphatase 690 H (38-126) U/L Ammonia (<30) umol/L Total Protein 5.7 L (6.3-8.2) g/dL Albumin 2.5 L (3.5-5.0) g/dL U Benzodiazepines Scrn (NotDetected) 01/31/22 01/31/22 01/31/22 Range/Units 12:05 12:07 17:20 WBC (3.8-10.6) k/uL RBC (4.30-5.90) m/uL Hgb (13.0-17.5) gm/dL Hct (39.0-53.0) % MCV (80.0-100.0) fL MCH (25.0-35.0) pg RDW (11.5-15.5) % Neutrophils # (1.3-7.7) k/uL Macrocytosis PT (9.0-12.0) sec INR (<1.2) ABG pO2 (83-108) mmHg ABG Total CO2 (19-24) mmol/L ABG O2 Saturation (94-97) % Sodium (137-145) mmol/L Chloride (98-107) mmol/L Carbon Dioxide (22-30) mmol/L Creatinine (0.66-1.25) mg/dL Glucose (74-99) mg/dL POC Glucose (mg/dL) 203 H (70-110) mg/dL Calcium (8.4-10.2) mg/dL Phosphorus (2.5-4.5) mg/dL Total Bilirubin (0.2-1.3) mg/dL AST (17-59) U/L Alkaline Phosphatase (38-126) U/L Ammonia 93 H (<30) umol/L Total Protein (6.3-8.2) g/dL Albumin (3.5-5.0) g/dL U Benzodiazepines Scrn Detected H (NotDetected) 02/01/22 02/01/22 02/01/22 Range/Units 00:03 05:25 05:25 WBC 17.9 H (3.8-10.6) k/uL RBC 2.67 L (4.30-5.90) m/uL Hgb 9.3 L (13.0-17.5) gm/dL Hct 28.4 L (39.0-53.0) % MCV 106.4 H D (80.0-100.0) fL MCH (25.0-35.0) pg RDW 16.1 H (11.5-15.5) % Neutrophils # 14.9 H (1.3-7.7) k/uL Macrocytosis PT (9.0-12.0) sec INR (<1.2) ABG pO2 (83-108) mmHg ABG Total CO2 (19-24) mmol/L ABG O2 Saturation (94-97) % Sodium 134 L (137-145) mmol/L Chloride (98-107) mmol/L Carbon Dioxide (22-30) mmol/L Creatinine 0.65 L (0.66-1.25) mg/dL Glucose 183 H (74-99) mg/dL POC Glucose (mg/dL) 188 H (70-110) mg/dL Calcium 7.2 L (8.4-10.2) mg/dL Phosphorus (2.5-4.5) mg/dL Total Bilirubin 11.3 H (0.2-1.3) mg/dL AST 122 H (17-59) U/L Alkaline Phosphatase 637 H (38-126) U/L Ammonia (<30) umol/L Total Protein 5.2 L (6.3-8.2) g/dL Albumin 2.2 L (3.5-5.0) g/dL U Benzodiazepines Scrn (NotDetected) 02/01/22 02/01/22 Range/Units 05:27 05:47 WBC (3.8-10.6) k/uL RBC (4.30-5.90) m/uL Hgb (13.0-17.5) gm/dL Hct (39.0-53.0) % MCV (80.0-100.0) fL MCH (25.0-35.0) pg RDW (11.5-15.5) % Neutrophils # (1.3-7.7) k/uL Macrocytosis PT (9.0-12.0) sec INR (<1.2) ABG pO2 (83-108) mmHg ABG Total CO2 26 H (19-24) mmol/L ABG O2 Saturation 98.7 H (94-97) % Sodium (137-145) mmol/L Chloride (98-107) mmol/L Carbon Dioxide (22-30) mmol/L Creatinine (0.66-1.25) mg/dL Glucose (74-99) mg/dL POC Glucose (mg/dL) 204 H (70-110) mg/dL Calcium (8.4-10.2) mg/dL Phosphorus (2.5-4.5) mg/dL Total Bilirubin (0.2-1.3) mg/dL AST (17-59) U/L Alkaline Phosphatase (38-126) U/L Ammonia (<30) umol/L Total Protein (6.3-8.2) g/dL Albumin (3.5-5.0) g/dL U Benzodiazepines Scrn (NotDetected) Microbiology - Last 24 Hours (Table) 01/31/22 20:52 Sputum Culture - Preliminary Sputum Assessment and Plan (1) Decompensation of cirrhosis of liver Narrative/Plan: This is 61-year-old male with significant history of alcohol abuse drinking 1 pint +5-6 beers daily for the last 30-40 years. No previous history of known liver disease. No previous history of paracentesis. Came into the emergency department for weakness was found to have a total bilirubin of 12.1. Patient also has abdominal distention, ascites. Patient has acute alcoholic hepatitis, with decompensation of cirrhosis likely related to alcohol with ascites. Will start patient on diuretics, plan for paracentesis. After initial exam patient was found unresponsive, XENIA DUARTE was called and CPR was initiated for 20 minutes. Patient was intubated and sent to the ICU. Patient's sister and mother at the bedside. Discussed there is a possibility for some improvement in his liver disease as patient quits drinking. Current Visit: Yes Status: Acute Code(s): K72.90 - HEPATIC FAILURE, UNSPECIFIED WITHOUT COMA; K74.60 - UNSPECIFIED CIRRHOSIS OF LIVER SNOMED Code(s): 681832656 (2) Jaundice Current Visit: Yes Status: Acute Code(s): R17 - UNSPECIFIED JAUNDICE SNOMED Code(s): 98342546 (3) Ascites Current Visit: Yes Status: Acute Code(s): R18.8 - OTHER ASCITES SNOMED Code(s): 801495600 (4) Acute liver failure Narrative/Plan: Acute alcoholic hepatitis related to underlying years of alcohol abuse. Current Visit: Yes Status: Acute Code(s): K72.00 - ACUTE AND SUBACUTE HEPATIC FAILURE WITHOUT COMA SNOMED Code(s): 911815496 (5) Alcohol abuse Current Visit: Yes Status: Acute Code(s): F10.10 - ALCOHOL ABUSE, UNCOMPLICATED SNOMED Code(s): 33895152 (6) Hyponatremia Current Visit: Yes Status: Acute Code(s): E87.1 - HYPO-OSMOLALITY AND HYPONATREMIA SNOMED Code(s): 86487702 (7) Hypokalemia Current Visit: Yes Status: Acute Code(s): E87.6 - HYPOKALEMIA SNOMED Code(s): 09146313 (8) Hypomagnesemia Current Visit: Yes Status: Acute Code(s): E83.42 - HYPOMAGNESEMIA SNOMED Code(s): 092769878 (9) Cardiopulmonary arrest with successful resuscitation Narrative/Plan: Patient remains in the ICU, under the care of talent sourcing specialist Current Visit: Yes Status: Acute Code(s): I46.9 - CARDIAC ARREST, CAUSE UNSPECIFIED SNOMED Code(s): 053308866 Plan: 1. Continue symptomatic and supportive care 2. Continue with ICU management 3. Lactulose ordered 30 g 3 times a day, titrate to have 2-3 bowel movements daily 4. Daily CBC, CMP, ammonia 5. Paracentesis with fluid studies ordered 7. Encourage/recommend alcohol abstinence Thank you for this consultation, we will continue to follow. Dr. Shanae Braun I agree with the dictator's note, documented as a scribe by Gail Avila.
[2022-02-01] MEDS: SPIRONOLACTONE 25 MG TAB PO SCH (10:34)
[2022-02-01] MEDS: RIFAXIMIN 550 MG TABLET PO SCH (10:34)
[2022-02-01] MEDS: PANTOPRAZOLE 40 MG/10 ML VIAL IV SCH (10:34)
[2022-02-01] MEDS: LACTULOSE 20 GM/30 ML CUP PO SCH ×3 (10:34→21:35)
[2022-02-01] MEDS: NOREPINEPHRINE 4 MG in SODIUM CHLORIDE 0.9% 250 ML IV SCH (10:35)
[2022-02-01] MEDS: CHLORHEXIDINE GLUCONATE 15 ML CUP MUCOUS MEM SCH ×2 (10:35→21:35)
[2022-02-01] MEDS: THIAMINE 100 MG TAB PO SCH (10:35)
[2022-02-01] MEDS: NOREPINEPHRINE 32 MG in SODIUM CHLORIDE 0.9% 218 ML IV SCH (10:43)
[2022-02-01 11:25] LABS: Glucose,Whole Blood 204 mg/dL (70-110)
--- NOTE | 2022-02-01 11:35 | P.PN ---
Subjective Progress Note Date: 02/01/22 Principal diagnosis: Cardiopulmonary arrest. Pulmonary/critical care consult dated 01/31/2022. 61-year-old white male who presents to the emergency department on January 29, with complaints of weakness, nausea, and vomiting. The patient has a history of daily alcohol abuse, as well as both diabetes and hypertension. He apparently was extremely weak, was not able to eat or drink. Anyway, he was seen in the emergency room, and admitted with a diagnosis of alcohol withdrawal syndrome, and liver failure. This morning, the patient was found unresponsive, with pulseless electrical activity. A CODE BLUE was called. The patient underwent 2 episodes of resuscitation, with eventual return of spontaneous circulation. According to the hospital physician in charge, the patient had about 20 minutes of resuscitation. The patient was intubated on the floor, and transferred to the intensive care unit. We saw the patient in the ICU, room 267. In addition to evaluating his chart, we placed a right radial art line, a left internal jugular triple-lumen catheter, and reintubated the patient. The patient remains on the volume assist control, rate 18, tidal volume 450, FiO2 70%, and PEEP of 5. Arterial blood gases on 100%, show pO2 of 261, pCO2 43, pH is 7.35. The patient is on propofol at 30 mcg/kg/m, norepinephrine at 25.2 mcg/m, and saline at 75 mL an hour. White count 11, hemoglobin 9.8, hematocrit 30, platelet count 179,000. PT 15.3 with an INR 1.5. Sodium 131, potassium 3.9, chlorides 99, CO2 17, anion gap 15, BUN 12, creatinine 0.57. Calcium 7.6. Bilirubin is 12.7. AST 150. Alk phosphatase 690. Ammonia level is elevated at 93. Albumin is 2.5. Drug screens were positive for benzodiazepines. Chest x-ray shows an appropriate position of the endotracheal tube and NG tube. There is interval development of bibasilar patchy opacities. CT of the abdomen and pelvis shows sigmoid diverticulosis, mass on the left lateral wall of the urinary bladder, abdominal ascites, and fatty infiltration of the liver. Progress note dated 02/01/2022. 61-year-old male seen yesterday in consultation. The patient was admitted with a diagnosis of acute liver disease, and possible alcohol withdrawal syndrome. The patient had a cardiopulmonary arrest yesterday, with about 20 minutes of total resuscitation. He was transferred to the intensive care unit. A right radial art line was placed as well as a left catheter. Currently, the patient remains on the ventilator. CAT scan of the brain was negative. He is on volume assist control, rate of 18, tidal volume 450, FiO2 50%, PEEP of 5. Blood gases show a PaO2 of 101, pCO2 36, pH is 7.44. The patient's on saline at 75 mL an hour, norepinephrine at 26 mcg/m, and propofol at 25 mcg/kg/m. We are going to start the patient on tube feeds immediately, and today, even though he is likely not ready for weaning and extubation, we will do a daily interruption of sedation. White count 17.9, hemoglobin 9.3, hematocrit 28.4, and platelet count 253,000. Sodium 134, potassium 3.6, chlorides 103, CO2 22, anion gap 9, BUN 14, creatinine 0.65. Ammonia level is 79. Albumin is 2.2. Chest x-ray shows some diffuse infiltrates, and tubes, and lines, are in good position. Objective - Vital Signs Vital signs: Vital Signs Temp 100.1 F H 02/01/22 08:00 Pulse 105 H 02/01/22 11:20 Resp 20 02/01/22 10:15 BP 103/77 02/01/22 07:15 Pulse Ox 97 02/01/22 10:15 FiO2 50 02/01/22 11:03 Intake & Output 01/31/22 02/01/22 02/01/22 18:59 06:59 18:59 Intake Total 1500 8752.257 0007.283 Output Total 365 340 90 Balance 1135 783.659 997.283 Weight 83.9 kg 83.9 kg Intake: IV 750 300 Sodium Chloride 0.9% 1, 750 300 000 ml @ 75 mls/hr IV . [id number] BRITTANIE Rx#:[id number] Intake, IV Titration 1500 333.659 787.283 Amount Magnesium Sulfate-D5w Pmx 200 1 gm In Dextrose/Water 1 100ml.bag @ 100 mls/hr IVPB Q1H BRITTANIE Rx#: [id number] Magnesium Sulfate-D5w Pmx 200 1 gm In Dextrose/Water 1 100ml.bag @ 100 mls/hr IVPB Q1H BRITTANIE Rx#: [id number] Norepinephrine 32 mg In 114.312 95.52 Sodium Chloride 0.9% 218 ml @ 0.03 MCG/KG/MIN 1.18 mls/hr IV .Q24H BRITTANIE Rx#: [id number] Norepinephrine 4 mg In 254 Sodium Chloride 0.9% 250 ml @ 0.03 MCG/KG/MIN 9. 591 mls/hr IV .Q24H BRITTANIE Rx#:[id number] Potassium Chloride 10 meq 200 In Water For Injection 1 100ml.bag @ 100 mls/hr IVPB Q1H BRITTANIE Rx#: [id number] Sodium Chloride 0.9% 1, 1300 75 000 ml @ 75 mls/hr IV . [id number] BRITTANIE Rx#:[id number] propofoL 1,000 mg In 144.347 37.763 Empty Bag 1 bag @ 15 MCG/ KG/MIN 7.552 mls/hr IV . [id number] BRITTANIE Rx#:[id number] Other 40 Output: Urine 365 340 90 Other: Voiding Method Indwelling Catheter Indwelling Catheter Indwelling Catheter ABP, PAP, CO, CI - Last Documented Arterial Blood Pressure 92/56 - Exam No acute distress, sedated, with an orally placed endotracheal tube and NG tube. HEENT examination is grossly unremarkable. Neck supple. Full range of motion. No adenopathy thyromegaly or neck vein distention. Cardiovascular examination reveals regular rhythm rate. S1-S2 normal. No S3 or S4. No discernible murmur noted. Heart sounds are distant. Heart rate 105 bpm. Lungs reveal bilateral coarse rhonchi. Breath sounds equal bilaterally. No wheezes or crackles. Saturations are 97%. FiO2 is 50% on the ventilator. Abdomen is mildly distended. No bowel sounds are noted. Extremities are intact. No cyanosis clubbing or edema. Skin is without rash or lesion. Neurologic examination cannot be adequately assessed. - Labs CBC & Chem 7: 02/01/22 05:25 02/01/22 05:25 Labs: Abnormal Lab Results - Last 24 Hours (Table) 01/31/22 01/31/22 01/31/22 Range/Units 11:35 12:05 12:05 WBC 11.0 H (3.8-10.6) k/uL RBC 2.64 L (4.30-5.90) m/uL Hgb 9.8 L (13.0-17.5) gm/dL Hct 30.0 L (39.0-53.0) % MCV 113.6 H D (80.0-100.0) fL MCH 37.1 H (25.0-35.0) pg RDW (11.5-15.5) % Neutrophils # (1.3-7.7) k/uL Macrocytosis Marked A PT 15.3 H (9.0-12.0) sec INR 1.5 H (<1.2) ABG pO2 261 H (83-108) mmHg ABG Total CO2 25 H (19-24) mmol/L ABG O2 Saturation 100.0 H (94-97) % Sodium (137-145) mmol/L Carbon Dioxide (22-30) mmol/L Creatinine (0.66-1.25) mg/dL Glucose (74-99) mg/dL POC Glucose (mg/dL) (70-110) mg/dL Calcium (8.4-10.2) mg/dL Phosphorus (2.5-4.5) mg/dL Total Bilirubin (0.2-1.3) mg/dL AST (17-59) U/L Alkaline Phosphatase (38-126) U/L Ammonia (<30) umol/L Total Protein (6.3-8.2) g/dL Albumin (3.5-5.0) g/dL U Benzodiazepines Scrn (NotDetected) 01/31/22 01/31/22 01/31/22 Range/Units 12:05 12:05 12:07 WBC (3.8-10.6) k/uL RBC (4.30-5.90) m/uL Hgb (13.0-17.5) gm/dL Hct (39.0-53.0) % MCV (80.0-100.0) fL MCH (25.0-35.0) pg RDW (11.5-15.5) % Neutrophils # (1.3-7.7) k/uL Macrocytosis PT (9.0-12.0) sec INR (<1.2) ABG pO2 (83-108) mmHg ABG Total CO2 (19-24) mmol/L ABG O2 Saturation (94-97) % Sodium 131 L (137-145) mmol/L Carbon Dioxide 17 L (22-30) mmol/L Creatinine 0.57 L (0.66-1.25) mg/dL Glucose 147 H (74-99) mg/dL POC Glucose (mg/dL) (70-110) mg/dL Calcium 7.6 L (8.4-10.2) mg/dL Phosphorus 2.4 L (2.5-4.5) mg/dL Total Bilirubin 12.7 H (0.2-1.3) mg/dL AST 150 H (17-59) U/L Alkaline Phosphatase 690 H (38-126) U/L Ammonia 93 H (<30) umol/L Total Protein 5.7 L (6.3-8.2) g/dL Albumin 2.5 L (3.5-5.0) g/dL U Benzodiazepines Scrn Detected H (NotDetected) 01/31/22 02/01/22 02/01/22 Range/Units 17:20 00:03 05:25 WBC (3.8-10.6) k/uL RBC (4.30-5.90) m/uL Hgb (13.0-17.5) gm/dL Hct (39.0-53.0) % MCV (80.0-100.0) fL MCH (25.0-35.0) pg RDW (11.5-15.5) % Neutrophils # (1.3-7.7) k/uL Macrocytosis PT (9.0-12.0) sec INR (<1.2) ABG pO2 (83-108) mmHg ABG Total CO2 (19-24) mmol/L ABG O2 Saturation (94-97) % Sodium 134 L (137-145) mmol/L Carbon Dioxide (22-30) mmol/L Creatinine 0.65 L (0.66-1.25) mg/dL Glucose 183 H (74-99) mg/dL POC Glucose (mg/dL) 203 H 188 H (70-110) mg/dL Calcium 7.2 L (8.4-10.2) mg/dL Phosphorus (2.5-4.5) mg/dL Total Bilirubin 11.3 H (0.2-1.3) mg/dL AST 122 H (17-59) U/L Alkaline Phosphatase 637 H (38-126) U/L Ammonia (<30) umol/L Total Protein 5.2 L (6.3-8.2) g/dL Albumin 2.2 L (3.5-5.0) g/dL U Benzodiazepines Scrn (NotDetected) 02/01/22 02/01/22 02/01/22 Range/Units 05:25 05:27 05:47 WBC 17.9 H (3.8-10.6) k/uL RBC 2.67 L (4.30-5.90) m/uL Hgb 9.3 L (13.0-17.5) gm/dL Hct 28.4 L (39.0-53.0) % MCV 106.4 H D (80.0-100.0) fL MCH (25.0-35.0) pg RDW 16.1 H (11.5-15.5) % Neutrophils # 14.9 H (1.3-7.7) k/uL Macrocytosis PT (9.0-12.0) sec INR (<1.2) ABG pO2 (83-108) mmHg ABG Total CO2 26 H (19-24) mmol/L ABG O2 Saturation 98.7 H (94-97) % Sodium (137-145) mmol/L Carbon Dioxide (22-30) mmol/L Creatinine (0.66-1.25) mg/dL Glucose (74-99) mg/dL POC Glucose (mg/dL) 204 H (70-110) mg/dL Calcium (8.4-10.2) mg/dL Phosphorus (2.5-4.5) mg/dL Total Bilirubin (0.2-1.3) mg/dL AST (17-59) U/L Alkaline Phosphatase (38-126) U/L Ammonia (<30) umol/L Total Protein (6.3-8.2) g/dL Albumin (3.5-5.0) g/dL U Benzodiazepines Scrn (NotDetected) 02/01/22 02/01/22 Range/Units 09:41 11:24 WBC (3.8-10.6) k/uL RBC (4.30-5.90) m/uL Hgb (13.0-17.5) gm/dL Hct (39.0-53.0) % MCV (80.0-100.0) fL MCH (25.0-35.0) pg RDW (11.5-15.5) % Neutrophils # (1.3-7.7) k/uL Macrocytosis PT (9.0-12.0) sec INR (<1.2) ABG pO2 (83-108) mmHg ABG Total CO2 (19-24) mmol/L ABG O2 Saturation (94-97) % Sodium (137-145) mmol/L Carbon Dioxide (22-30) mmol/L Creatinine (0.66-1.25) mg/dL Glucose (74-99) mg/dL POC Glucose (mg/dL) 204 H (70-110) mg/dL Calcium (8.4-10.2) mg/dL Phosphorus (2.5-4.5) mg/dL Total Bilirubin (0.2-1.3) mg/dL AST (17-59) U/L Alkaline Phosphatase (38-126) U/L Ammonia 79 H (<30) umol/L Total Protein (6.3-8.2) g/dL Albumin (3.5-5.0) g/dL U Benzodiazepines Scrn (NotDetected) Microbiology - Last 24 Hours (Table) 01/31/22 20:52 Gram Stain - Preliminary Sputum Sputum Culture - Preliminary Assessment and Plan Assessment: Status post cardiopulmonary arrest, with pulseless electrical activity, status post cardiopulmonary resuscitation with return of spontaneous circulation, after 20 minutes of resuscitation. Status post intubation and mechanical ventilation on 01/31/2022, for cardiopulmonary arrest. Alcoholic liver disease. Chronic alcohol abuse. Recent lymph node biopsy, potentially consistent with cutaneous T-cell lymphoma. Nicotine dependence syndrome. History of diabetes mellitus. History of hypertension. History of hyperlipidemia. Severe hyperbilirubinemia. Hepatic encephalopathy with hyperammonemia. Hypoalbuminemia. Anion gap metabolic acidosis. Plan: Plan dated 01/31/2022. A radial art line was placed for better blood pressure monitoring. The patient is maintained on norepinephrine at 25 mcg/m. Also, a left internal jugular triple-lumen catheter was placed. Labs, x-rays, medications are reviewed. Prognosis is certainly very poor. The patient's medications are reviewed and unnecessary medications are discontinued. The patient will need lactulose for his hyperammonemia. The patient should be on albuterol sulfate and ipratropium bromide, every 4 hours [id number]. We will continue to follow make recommendations along the way. Plan dated 02/01/2022. The patient remains on high doses of norepinephrine. The patient's on propofol, and remains on the mechanical ventilator. Brain CT was negative. Labs, x-rays, and medications are all reviewed. The patient will have a daily interruption of sedation. Today, we'll start tube feeds. Additional recommendations and suggestions are forthcoming. He continues on lactulose, and Xifaxan, for his hyperammonemia. Additional recommendations and suggestions are forthcoming. Prognosis is certainly guarded. Time with Patient: Greater than 30
--- NOTE | 2022-02-01 12:17 | PN ---
PROGRESS NOTE This is a 61-year-old gentleman admitted with acute liver failure, severe jaundice with alcohol, had an episode of cardiorespiratory aspiration, pulseless electrical activity. Patient remained mechanically intubated and currently transferred to ICU at this time. PAST MEDICAL HISTORY: Reviewed. REVIEW OF SYSTEMS: Could not be taken. CURRENT MEDICATIONS: Reviewed and include Librium, and dose and rest of medication noted. PHYSICAL EXAMINATION: VITAL SIGNS: Pulse is 122, blood pressure 98/70, respirations 18. HEENT: Conjunctivae icteric. NECK: No jugular venous distention. CARDIOVASCULAR: S1, S2 muffled. RESPIRATION: Few scattered rhonchi. ABDOMEN: Soft. No ascites. LEGS: No edema. NERVOUS SYSTEM: Patient unresponsive. LABS: WBC 12.8. Bilirubin is 13.3. Rest of the labs are reviewed. ASSESSMENT: 1. Acute hepatic failure secondary to alcoholic liver disease. 2. Acute cardiovascular arrest and acute respiratory failure, on mechanical ventilation. 3. Hypertension. 4. Diabetes mellitus, type 2. 5. Multiple medical issues. RECOMMENDATIONS: I recommend to continue current medications, symptomatic treatment. Otherwise, monitor in the ICU. I would recommend the patient follow closely with Gastroenterology as well as Pulmonary. Repeat labs. Prognosis is extremely guarded, which I discussed with family, who is not aware of the patient's admission apparently and prognosis guarded. Further recommendations to follow. See consultation and progress note for further details. Patient is in the ICU currently. MMODL / IJN: [id number] /
--- NOTE | 2022-02-01 15:37 | P.PN ---
Subjective Progress Note Date: 02/01/22 This is a 61-year-old male who was recently admitted with acute liver failure with severe jaundice with alcohol and had an episode of cardiopulmonary arrest with pulseless electrical activity and is being closely monitored. Patient continues to be in the ICU on mechanical ventilation with an FiO2 of 50% and PEEP is 5. Multiple medical consultations including pulmonary and GI are following. Patient is maintained on lactulose 3 times a day and ammonia is slightly improved at 79 today. Will order 2-D echo. WBC remains elevated at 17.9 and hemoglobin is stable at 9.3. Some hematuria and severely concentrated urine noted in the [place]. Other labs within normal limits. Bilirubin down to 11.3 today. No plans for weaning at this time. Family at the bedside and questions and concerns were answered. Review of systems: Unable to obtain as patient is currently intubated and sedated Active Medications Albuterol/Ipratropium (Ipratropium-Albuterol 3 Ml Neb) 3 ml INHALATION RT-Q4H [facility]ITTANIE Last Admin: 02/01/22 15:16 Dose: 3 ml Chlorhexidine Gluconate (Chlorhexidine Gluconate 15 Ml Cup) 15 ml MUCOUS MEM BID BRITTANIE Last Admin: 02/01/22 10:35 Dose: 15 ml Dextrose/Water (Dextrose 50% Syringe 50 Ml) 25 ml IVP PER PROTOCOL PRN; Protocol PRN Reason: Hypoglycemia Dextrose/Water (Dextrose 50% Syringe 50 Ml) 50 ml IVP PER PROTOCOL PRN; Protocol PRN Reason: Hypoglycemia Sodium Chloride (Saline 0.9%) 1,000 mls @ 75 mls/hr IV .[id number] BRITTANIE Last Admin: 02/01/22 01:30 Dose: 75 mls/hr Propofol 1,000 mg/ IV Solution 100 mls @ 7.552 mls/hr IV .[id number] BRITTANIE; Protocol Last Titration: 02/01/22 15:13 Dose: 15 mcg/kg/min, 7.552 mls/hr Norepinephrine Bitartrate 4 mg (/ Sodium Chloride) 254 mls @ 9.591 mls/hr IV .Q24H BRITTANIE; Protocol Last Admin: 02/01/22 10:35 Dose: Not Given Norepinephrine Bitartrate 32 (mg/ Sodium Chloride) 250 mls @ 1.18 mls/hr IV .Q24H BRITTANIE; Protocol Last Admin: 02/01/22 10:43 Dose: 0.32 mcg/kg/min, 12.587 mls/hr Insulin Aspart (Insulin Aspart (Novolog) 100 Unit/Ml Vial) 0 unit SQ Q6HR [facility]; Protocol Last Admin: 02/01/22 12:08 Dose: 4 unit Lactulose (Lactulose 20 Gm/30 Ml Cup) 30 gm PO TID [facility] Last Admin: 02/01/22 10:34 Dose: 30 gm Miscellaneous Information (Potassium Replacement Protocol 1 Each Misc) 1 each MISCELLANE DAILY PRN; Protocol PRN Reason: Per Protocol Miscellaneous Information (Magnesium Replacement Protocol 1 Each Misc) 1 each MISCELLANE DAILY PRN; Protocol PRN Reason: Per Protocol Naloxone HCl (Naloxone 0.4 Mg/Ml 1 Ml Vial) 0.2 mg IV Q2M PRN PRN Reason: Opioid Reversal Pantoprazole Sodium (Pantoprazole 40 Mg/10 Ml Vial) 40 mg IV DAILY [facility] Last Admin: 02/01/22 10:34 Dose: 40 mg Rifaximin (Rifaximin 550 Mg Tablet) 550 mg PO BID [facility]; Protocol Stop: 03/03/22 21:01 Last Admin: 02/01/22 10:34 Dose: 550 mg Spironolactone (Spironolactone 25 Mg Tab) 100 mg PO DAILY [facility] Last Admin: 02/01/22 10:34 Dose: 100 mg Thiamine HCl (Thiamine 100 Mg Tab) 100 mg PO DAILY [facility] Last Admin: 02/01/22 10:35 Dose: 100 mg PHYSICAL EXAMINATION: GENERAL: The patient is currently sedated and intubated on mechanical vent, ill- appearing elderly male, jaundiced HEENT: Pupils are round and equally reacting to light. EOMI. scleral icterus noted. conjunctival pallor. Normocephalic, atraumatic. CARDIOVASCULAR: S1 and S2 muffled PULMONARY: diminished breath sounds bilaterally with some scattered rhonchi noted. ABDOMEN: soft. Distended, tympanic. normoactive bowel sounds. MUSCULOSKELETAL: No joint swelling or deformity. EXTREMITIES: No cyanosis, clubbing, or pedal edema. NEUROLOGICAL: Unable to completely assess as patient is intubated and sedated SKIN: No rashes. Jaundice Assessment: Acute hepatic failure secondary to alcoholic liver disease Acute cardiovascular arrest and acute respiratory failure on mechanical ventilation Hypertension Diabetes mellitus, type II Alcoholic cirrhosis Continued ongoing nicotine dependence GI prophylaxis DVT prophylaxis Full code Plan: Recommend to continue with current medications and management with multiple medical consultations including GI and pulmonary following. Patient is continued on mechanical vent with an FiO2 of 50% and PEEP is 5. Discussion of sedation holiday with family although no attempts at weaning today. Recommend continue with lactulose 3 times a day and repeat ammonia today slightly improved at 79. Recommend monitoring of blood sugars per ICU protocol. Dietitian consulted for enteral nutrition as patient is currently intubated and sedated. 2-D echo ordered and pending and recommend repeat chest x-ray in the morning. GI following with labs ordered and pending at this time. Daughter and at the bedside with questions and concerns were answered to the best of our ability. Recommend repeat labs in the a.m. and close monitoring. Due to multiple complex medical issues, prognosis is guarded. The impression and plan of care has been dictated by Tosin Godwin, nurse practitioner as directed. Dr. Jose Eduardo MD I have performed a history and examination and MDM of this patient, discussed the same with the dictator, and agree with the dictator's assessment and plan as written ,documented as a scribe. Based on total visit time, I have performed more than 50% of the visit. Any additional findings or plans will be noted. Objective - Vital Signs Vital signs: Vital Signs Temp 99.2 F 02/01/22 12:00 Pulse 120 H 02/01/22 15:16 Resp 17 02/01/22 15:00 BP 103/77 02/01/22 07:15 Pulse Ox 96 02/01/22 15:00 FiO2 50 02/01/22 15:15 Intake & Output 01/31/22 02/01/22 02/01/22 18:59 06:59 18:59 Intake Total 1500 3634.463 3902.310 Output Total 365 340 190 Balance 1135 442.800 3952.310 Weight 83.9 kg 83.9 kg Intake: IV 750 675 Sodium Chloride 0.9% 1, 750 675 000 ml @ 75 mls/hr IV . [id number] BRITTANIE Rx#:[id number] Intake, IV Titration 1500 333.659 839.310 Amount Magnesium Sulfate-D5w Pmx 200 1 gm In Dextrose/Water 1 100ml.bag @ 100 mls/hr IVPB Q1H BRITTANIE Rx#: [id number] Magnesium Sulfate-D5w Pmx 200 1 gm In Dextrose/Water 1 100ml.bag @ 100 mls/hr IVPB Q1H BRITTANIE Rx#: [id number] Norepinephrine 32 mg In 114.312 95.52 Sodium Chloride 0.9% 218 ml @ 0.03 MCG/KG/MIN 1.18 mls/hr IV .Q24H BRITTANIE Rx#: [id number] Norepinephrine 4 mg In 254 Sodium Chloride 0.9% 250 ml @ 0.03 MCG/KG/MIN 9. 591 mls/hr IV .Q24H BRITTANIE Rx#:[id number] Potassium Chloride 10 meq 200 In Water For Injection 1 100ml.bag @ 100 mls/hr IVPB Q1H BRITTANIE Rx#: [id number] Sodium Chloride 0.9% 1, 1300 75 000 ml @ 75 mls/hr IV . [id number] BRITTANIE Rx#:[id number] propofoL 1,000 mg In 144.347 89.790 Empty Bag 1 bag @ 15 MCG/ KG/MIN 7.552 mls/hr IV . [id number] BRITTANIE Rx#:[id number] Tube Feeding 60 Other 40 Output: Urine 365 340 190 Other: Voiding Method Indwelling Catheter Indwelling Catheter Indwelling Catheter ABP, PAP, CO, CI - Last Documented Arterial Blood Pressure 94/60 - Labs CBC & Chem 7: 02/01/22 05:25 02/01/22 05:25 Labs: Abnormal Lab Results - Last 24 Hours (Table) 01/31/22 02/01/22 02/01/22 Range/Units 17:20 00:03 05:25 WBC (3.8-10.6) k/uL RBC (4.30-5.90) m/uL Hgb (13.0-17.5) gm/dL Hct (39.0-53.0) % MCV (80.0-100.0) fL RDW (11.5-15.5) % Neutrophils # (1.3-7.7) k/uL ABG Total CO2 (19-24) mmol/L ABG O2 Saturation (94-97) % Sodium 134 L (137-145) mmol/L Creatinine 0.65 L (0.66-1.25) mg/dL Glucose 183 H (74-99) mg/dL POC Glucose (mg/dL) 203 H 188 H (70-110) mg/dL Calcium 7.2 L (8.4-10.2) mg/dL Total Bilirubin 11.3 H (0.2-1.3) mg/dL AST 122 H (17-59) U/L Alkaline Phosphatase 637 H (38-126) U/L Ammonia (<30) umol/L Total Protein 5.2 L (6.3-8.2) g/dL Albumin 2.2 L (3.5-5.0) g/dL 02/01/22 02/01/22 02/01/22 Range/Units 05:25 05:27 05:47 WBC 17.9 H (3.8-10.6) k/uL RBC 2.67 L (4.30-5.90) m/uL Hgb 9.3 L (13.0-17.5) gm/dL Hct 28.4 L (39.0-53.0) % MCV 106.4 H D (80.0-100.0) fL RDW 16.1 H (11.5-15.5) % Neutrophils # 14.9 H (1.3-7.7) k/uL ABG Total CO2 26 H (19-24) mmol/L ABG O2 Saturation 98.7 H (94-97) % Sodium (137-145) mmol/L Creatinine (0.66-1.25) mg/dL Glucose (74-99) mg/dL POC Glucose (mg/dL) 204 H (70-110) mg/dL Calcium (8.4-10.2) mg/dL Total Bilirubin (0.2-1.3) mg/dL AST (17-59) U/L Alkaline Phosphatase (38-126) U/L Ammonia (<30) umol/L Total Protein (6.3-8.2) g/dL Albumin (3.5-5.0) g/dL 02/01/22 02/01/22 Range/Units 09:41 11:24 WBC (3.8-10.6) k/uL RBC (4.30-5.90) m/uL Hgb (13.0-17.5) gm/dL Hct (39.0-53.0) % MCV (80.0-100.0) fL RDW (11.5-15.5) % Neutrophils # (1.3-7.7) k/uL ABG Total CO2 (19-24) mmol/L ABG O2 Saturation (94-97) % Sodium (137-145) mmol/L Creatinine (0.66-1.25) mg/dL Glucose (74-99) mg/dL POC Glucose (mg/dL) 204 H (70-110) mg/dL Calcium (8.4-10.2) mg/dL Total Bilirubin (0.2-1.3) mg/dL AST (17-59) U/L Alkaline Phosphatase (38-126) U/L Ammonia 79 H (<30) umol/L Total Protein (6.3-8.2) g/dL Albumin (3.5-5.0) g/dL Microbiology - Last 24 Hours (Table) 01/31/22 20:52 Gram Stain - Preliminary Sputum Sputum Culture - Preliminary
[2022-02-01 18:46] LABS: Glucose,Whole Blood 205 mg/dL (70-110)
[2022-02-01] MEDS ORDERED: FUROSEMIDE 10 MG/ML 4 ML VIAL IV STA (22:13)
[2022-02-02 00:06] LABS: Glucose,Whole Blood 154 mg/dL (70-110)
[2022-02-02] MEDS: INSULIN ASPART (NovoLOG) 100 UNIT/ML VIAL SQ SCH ×4 (00:20→17:50)
[2022-02-02] MEDS: IPRATROPIUM-ALBUTEROL 3 ML NEB INHALATION SCH ×6 (04:30→23:22)
[2022-02-02 05:57] LABS: ABG Base Excess -3.3 mmol/L; ABG HCO3 22 mmol/L (21-25); ABG Oxygen Saturation 96.6 % (94-97); ABG PCO2 39 mmHg (35-45); ABG PH 7.36 (7.35-7.45); ABG PO2 86 mmHg (83-108); ABG TCO2 23 mmol/L (19-24); Allen Test Performed? Yes
[2022-02-02 06:22] LABS: Glucose,Whole Blood 209 mg/dL (70-110)
[2022-02-02 06:39] LABS: Anisocytosis Slight; HCT 29.9 % (39.0-53.0); HGB 9.5 gm/dL (13.0-17.5); Hypochromasia Slight; MCH 34.8 pg (25.0-35.0); MCHC 31.9 g/dL (31.0-37.0); MCV 109.1 fL (80.0-100.0); Macrocytosis Marked; Mean Platelet Volume 9.6; Platelet Count 198 k/uL (150-450); RBC 2.74 m/uL (4.30-5.90); RDW 16.9 % (11.5-15.5)
[2022-02-02 06:58] LABS: Albumin 2.2 g/dL (3.5-5.0); Calcium 7.2 mg/dL (8.4-10.2); Potassium 3.9 mmol/L (3.5-5.1); Total Bilirubin 11.3 mg/dL (0.2-1.3); Total Protein 5.2 g/dL (6.3-8.2)
--- NOTE | 2022-02-02 07:03 | XR ---
EXAMINATION TYPE: XR chest 1V portable DATE OF EXAM: 02/02/2022 6:00 AM COMPARISON: Chest radiographs from 02/01/2022. TECHNIQUE: XR chest 1V portable Portable AP radiograph of the chest. CLINICAL INDICATION:Male, 61 years old with history of Tube placement; FINDINGS: Lungs/Pleura: No pneumothorax or pleural effusion. Similar bibasilar patchy airspace infiltrates and/ or atelectasis. Pulmonary vascularity: Unremarkable. Heart/mediastinum: Cardiomediastinal silhouette is unremarkable. Musculoskeletal: No acute osseous pathology. Other findings: None Lines/Tubes: Endotracheal tube with distal tip 7.0 cm above the julio cesar Nasogastric tube with its distal tip and side-port projecting under the diaphragm. Left internal jugular central venous catheter with distal tip at the cavoatrial junction. IMPRESSION: 1. Stable support lines and tubes. 2. Stable bibasilar acute infiltrates and/or atelectasis.
[2022-02-02] MEDS: SODIUM CHLORIDE 0.9% 1,000 ML IV SCH (07:21)
[2022-02-02] MEDS: PANTOPRAZOLE 40 MG/10 ML VIAL IV SCH (07:56)
[2022-02-02] MEDS: CHLORHEXIDINE GLUCONATE 15 ML CUP MUCOUS MEM SCH ×2 (07:56→21:39)
[2022-02-02] MEDS: THIAMINE 100 MG TAB PO SCH (07:56)
[2022-02-02] MEDS: SPIRONOLACTONE 25 MG TAB PO SCH (07:56)
[2022-02-02] MEDS: LACTULOSE 20 GM/30 ML CUP PO SCH ×3 (07:56→21:42)
[2022-02-02] MEDS: NOREPINEPHRINE 4 MG in SODIUM CHLORIDE 0.9% 250 ML IV SCH (07:57)
[2022-02-02] MEDS: RIFAXIMIN 550 MG TABLET PO SCH ×2 (07:57→23:00)
--- NOTE | 2022-02-02 10:31 | CA ---
Transthoracic Echo Report Name: Simone Connell Age: 61 Gender: M : 1960 Exam Date: 02/01/2022 12:55 Exam Location: [place] [facility] Ht (in): 70 Wt (lb): 184 Ordering Physician: Triston Whitt MD Attending/Referring Phys: Program Manager Slp Janice Madrid RDCS Procedure CPT: Indications: cardiac arreast Cardiac Hx: Technical Quality: Fair Contrast 1: Total Dose (mL): Contrast 2: Total Dose (mL): MEASUREMENTS (Male / Female) Normal Values 2D ECHO LV Diastolic Diameter PLAX 3.5 cm 4.2 - 5.9 / 3.9 - 5.3 cm LV Systolic Diameter PLAX 2.5 cm IVS Diastolic Thickness 1.2 cm 0.6 - 1.0 / 0.6 - 0.9 cm LVPW Diastolic Thickness 1.1 cm 0.6 - 1.0 / 0.6 - 0.9 cm LV Relative Wall Thickness 0.7 RV Internal Dim ED PLAX 3.2 cm LA Systolic Diameter LX 3.2 cm 3.0 - 4.0 / 2.7 - 3.8 cm M-MODE Aortic Root Diameter MM 3.6 cm MV E Point Septal Separation 0.7 cm AV Cusp Separation MM 1.8 cm DOPPLER AV Peak Velocity 100.8 cm/s AV Peak Gradient 4.1 mmHg MV Area PHT 5.6 cm??? Mitral E Point Velocity 51.1 cm/s Mitral A Point Velocity 74.6 cm/s Mitral E to A Ratio 0.7 MV Deceleration Time 135.9 ms MV E' Velocity 6.2 cm/s Mitral E to MV E' Ratio 8.2 TR Peak Velocity 248.9 cm/s TR Peak Gradient 24.8 mmHg Right Ventricular Systolic Press 29.6 mmHg FINDINGS Left Ventricle Left ventricular ejection fraction is estimated at 55-60 %. Left ventricular cavity size normal. Borderline left ventricular hypertrophy. Right Ventricle Normal right ventricular size and function. Right ventricular systolic pressure within normal limits. Right Atrium Normal right atrial size. Left Atrium Normal left atrial size. No evidence for an atrial septal defect. Mitral Valve Structurally normal mitral valve. No mitral stenosis, regurgitation or prolapse. Aortic Valve Trileaflet aortic valve. No aortic valve stenosis or regurgitation. Tricuspid Valve Mild tricuspid regurgitation.structurally normal tricuspid valve. Pulmonic Valve Pulmonic valve not well visualized. Pericardium Normal pericardium. No pericardial effusion. Right pleural effusion. Aorta Normal size aortic root and proximal ascending aorta. CONCLUSIONS 1. Normal left ventricle size and systolic function 2. Mild tricuspid regurgitation 3. No pericardial effusion Previewed by: Dr. Heidi Dwyer MD (Electronically Signed) Final Date: 02 February 2022 10:30
--- NOTE | 2022-02-02 10:34 | P.PN ---
Subjective Progress Note Date: 02/02/22 Principal diagnosis: Cardiopulmonary arrest. Pulmonary/critical care consult dated 01/31/2022. 61-year-old white male who presents to the emergency department on January 29, with complaints of weakness, nausea, and vomiting. The patient has a history of daily alcohol abuse, as well as both diabetes and hypertension. He apparently was extremely weak, was not able to eat or drink. Anyway, he was seen in the emergency room, and admitted with a diagnosis of alcohol withdrawal syndrome, and liver failure. This morning, the patient was found unresponsive, with pulseless electrical activity. A CODE BLUE was called. The patient underwent 2 episodes of resuscitation, with eventual return of spontaneous circulation. According to the hospital physician in charge, the patient had about 20 minutes of resuscitation. The patient was intubated on the floor, and transferred to the intensive care unit. We saw the patient in the ICU, room 267. In addition to evaluating his chart, we placed a right radial art line, a left internal jugular triple-lumen catheter, and reintubated the patient. The patient remains on the volume assist control, rate 18, tidal volume 450, FiO2 70%, and PEEP of 5. Arterial blood gases on 100%, show pO2 of 261, pCO2 43, pH is 7.35. The patient is on propofol at 30 mcg/kg/m, norepinephrine at 25.2 mcg/m, and saline at 75 mL an hour. White count 11, hemoglobin 9.8, hematocrit 30, platelet count 179,000. PT 15.3 with an INR 1.5. Sodium 131, potassium 3.9, chlorides 99, CO2 17, anion gap 15, BUN 12, creatinine 0.57. Calcium 7.6. Bilirubin is 12.7. AST 150. Alk phosphatase 690. Ammonia level is elevated at 93. Albumin is 2.5. Drug screens were positive for benzodiazepines. Chest x-ray shows an appropriate position of the endotracheal tube and NG tube. There is interval development of bibasilar patchy opacities. CT of the abdomen and pelvis shows sigmoid diverticulosis, mass on the left lateral wall of the urinary bladder, abdominal ascites, and fatty infiltration of the liver. Progress note dated 02/01/2022. 61-year-old male seen yesterday in consultation. The patient was admitted with a diagnosis of acute liver disease, and possible alcohol withdrawal syndrome. The patient had a cardiopulmonary arrest yesterday, with about 20 minutes of total resuscitation. He was transferred to the intensive care unit. A right radial art line was placed as well as a left catheter. Currently, the patient remains on the ventilator. CAT scan of the brain was negative. He is on volume assist control, rate of 18, tidal volume 450, FiO2 50%, PEEP of 5. Blood gases show a PaO2 of 101, pCO2 36, pH is 7.44. The patient's on saline at 75 mL an hour, norepinephrine at 26 mcg/m, and propofol at 25 mcg/kg/m. We are going to start the patient on tube feeds immediately, and today, even though he is likely not ready for weaning and extubation, we will do a daily interruption of sedation. White count 17.9, hemoglobin 9.3, hematocrit 28.4, and platelet count 253,000. Sodium 134, potassium 3.6, chlorides 103, CO2 22, anion gap 9, BUN 14, creatinine 0.65. Ammonia level is 79. Albumin is 2.2. Chest x-ray shows some diffuse infiltrates, and tubes, and lines, are in good position. Progress note dated 02/02/2022. 61-year-old male seen in consultation 2 days ago. The patient is status post cardiopulmonary arrest. He has a history of acute liver disease, possible alcohol withdrawal syndrome, and hyperammonemia, with metabolic encephalopathy. He had about 20 minutes of total resuscitation. The patient was intubated, and transferred to the intensive care unit. I right radial art line was placed, as was a left internal jugular triple-lumen catheter. He remains on the ventilator. Currently, volume assist control, rate 18, tidal volume 450, FiO2 50%, and PEEP of 5. Blood gases are essentially normal with a pO2 of 85, pCO2 38, and a pH is 7.36. He is getting saline at 75 mL an hour, norepinephrine at 20 mcg/m, and propofol is currently off. The nurses are doing a daily interruption of sedation. Labs today include a white count of 19, hemoglobin 9.5, hematocrit 29.9, and a platelet count of 298,000. Sodium 135, potassium 3.9, chlorides 106, CO2 19, anion gap 10, BUN 19, creatinine 1.32. The calcium is 7.2. Bilirubin 7.3. Ammonia level is 83. Microbiologic studies are essentially negative at this time. Chest x-ray shows stable bibasilar infiltrates versus atelectasis. Objective - Vital Signs Vital signs: Vital Signs Temp 99.7 F H 02/02/22 08:00 Pulse 129 H 02/02/22 09:15 Resp 19 02/02/22 09:15 BP 113/89 02/02/22 02:15 Pulse Ox 94 L 02/02/22 09:15 FiO2 50 02/02/22 08:00 Intake & Output 02/01/22 02/02/22 02/02/22 18:59 06:59 18:59 Intake Total 2151.964 6905.652 559.230 Output Total 270 165 435 Balance 9187.986 3031.652 124.230 Weight 83.9 kg Intake: IV 975 825 225 Sodium Chloride 0.9% 1, 975 825 225 000 ml @ 75 mls/hr IV . [id number] [facility] Rx#:[id number] Intake, IV Titration 850.177 176.652 214.230 Amount Magnesium Sulfate-D5w Pmx 200 1 gm In Dextrose/Water 1 100ml.bag @ 100 mls/hr IVPB Q1H [facility] Rx#: [id number] Norepinephrine 32 mg In 95.52 139.546 110.454 Sodium Chloride 0.9% 218 ml @ 0.03 MCG/KG/MIN 1.18 mls/hr IV .Q24H [facility] Rx#: [id number] Norepinephrine 4 mg In 254 Sodium Chloride 0.9% 250 ml @ 0.03 MCG/KG/MIN 9. 591 mls/hr IV .Q24H [facility] Rx#:[id number] Potassium Chloride 10 meq 200 In Water For Injection 1 100ml.bag @ 100 mls/hr IVPB Q1H [facility] Rx#: [id number] propofoL 1,000 mg In 100.657 37.106 103.776 Empty Bag 1 bag @ 15 MCG/ KG/MIN 7.552 mls/hr IV . [id number] [facility] Rx#:[id number] Tube Feeding 140 310 90 Other 30 60 30 Output: Urine 270 165 35 Stool 400 Other: Voiding Method Indwelling Catheter Indwelling Catheter Indwelling Catheter ABP, PAP, CO, CI - Last Documented Arterial Blood Pressure 95/61 - Exam No acute distress, sedated, with an orally placed endotracheal tube and NG tube. HEENT examination is grossly unremarkable. Neck supple. Full range of motion. No adenopathy thyromegaly or neck vein distention. Cardiovascular examination reveals regular rhythm rate. S1-S2 normal. No S3 or S4. No discernible murmur noted. Heart sounds are distant. Heart rate 129 bpm. Lungs reveal bilateral coarse rhonchi. Breath sounds equal bilaterally. No w heezes or crackles. Saturations are 94 %. FiO2 is 50% on the ventilator. Abdomen is mildly distended. No bowel sounds are noted. Extremities are intact. No cyanosis clubbing or edema. Skin is without rash or lesion. Neurologic examination cannot be adequately assessed. - Labs CBC & Chem 7: 02/02/22 06:22 02/02/22 06:22 Labs: Abnormal Lab Results - Last 24 Hours (Table) 02/01/22 02/01/22 02/01/22 Range/Units 05:25 11:24 18:44 WBC (3.8-10.6) k/uL RBC (4.30-5.90) m/uL Hgb (13.0-17.5) gm/dL Hct (39.0-53.0) % MCV (80.0-100.0) fL RDW (11.5-15.5) % Macrocytosis Sodium (137-145) mmol/L Carbon Dioxide (22-30) mmol/L Creatinine (0.66-1.25) mg/dL Glucose (74-99) mg/dL POC Glucose (mg/dL) 204 H 205 H (70-110) mg/dL Calcium (8.4-10.2) mg/dL Total Bilirubin (0.2-1.3) mg/dL AST (17-59) U/L Alkaline Phosphatase (38-126) U/L Ammonia (<30) umol/L Total Protein (6.3-8.2) g/dL Albumin (3.5-5.0) g/dL Procalcitonin 1.64 H (0.02-0.09) ng/mL 02/02/22 02/02/22 02/02/22 Range/Units 00:04 06:21 06:22 WBC 19.0 H (3.8-10.6) k/uL RBC 2.74 L (4.30-5.90) m/uL Hgb 9.5 L (13.0-17.5) gm/dL Hct 29.9 L (39.0-53.0) % MCV 109.1 H (80.0-100.0) fL RDW 16.9 H (11.5-15.5) % Macrocytosis Marked A Sodium (137-145) mmol/L Carbon Dioxide (22-30) mmol/L Creatinine (0.66-1.25) mg/dL Glucose (74-99) mg/dL POC Glucose (mg/dL) 154 H 209 H (70-110) mg/dL Calcium (8.4-10.2) mg/dL Total Bilirubin (0.2-1.3) mg/dL AST (17-59) U/L Alkaline Phosphatase (38-126) U/L Ammonia (<30) umol/L Total Protein (6.3-8.2) g/dL Albumin (3.5-5.0) g/dL Procalcitonin (0.02-0.09) ng/mL 02/02/22 02/02/22 Range/Units 06:22 07:42 WBC (3.8-10.6) k/uL RBC (4.30-5.90) m/uL Hgb (13.0-17.5) gm/dL Hct (39.0-53.0) % MCV (80.0-100.0) fL RDW (11.5-15.5) % Macrocytosis Sodium 135 L (137-145) mmol/L Carbon Dioxide 19 L (22-30) mmol/L Creatinine 1.32 H (0.66-1.25) mg/dL Glucose 188 H (74-99) mg/dL POC Glucose (mg/dL) (70-110) mg/dL Calcium 7.2 L (8.4-10.2) mg/dL Total Bilirubin 11.3 H (0.2-1.3) mg/dL AST 87 H (17-59) U/L Alkaline Phosphatase 739 H (38-126) U/L Ammonia 83 H (<30) umol/L Total Protein 5.2 L (6.3-8.2) g/dL Albumin 2.2 L (3.5-5.0) g/dL Procalcitonin (0.02-0.09) ng/mL Microbiology - Last 24 Hours (Table) 01/31/22 20:52 Gram Stain - Preliminary Sputum Sputum Culture - Preliminary Assessment and Plan Assessment: Status post cardiopulmonary arrest, with pulseless electrical activity, status post cardiopulmonary resuscitation with return of spontaneous circulation, after 20 minutes of resuscitation. Status post intubation and mechanical ventilation on 01/31/2022, for cardiopulmonary arrest. Alcoholic liver disease. Chronic alcohol abuse. Recent lymph node biopsy, potentially consistent with cutaneous T-cell lymphoma. Nicotine dependence syndrome. History of diabetes mellitus. History of hypertension. History of hyperlipidemia. Severe hyperbilirubinemia. Hepatic encephalopathy with hyperammonemia. Hypoalbuminemia. Anion gap metabolic acidosis. Plan: Plan dated 01/31/2022. A radial art line was placed for better blood pressure monitoring. The patient is maintained on norepinephrine at 25 mcg/m. Also, a left internal jugular triple-lumen catheter was placed. Labs, x-rays, medications are reviewed. Prognosis is certainly very poor. The patient's medications are reviewed and unnecessary medications are discontinued. The patient will need lactulose for his hyperammonemia. The patient should be on albuterol sulfate and ipratropium bromide, every 4 hours [id number]. We will continue to follow make recommendations along the way. Plan dated 02/01/2022. The patient remains on high doses of norepinephrine. The patient's on propofol, and remains on the mechanical ventilator. Brain CT was negative. Labs, x-rays, and medications are all reviewed. The patient will have a daily interruption of sedation. Today, we'll start tube feeds. Additional recommendations and suggestions are forthcoming. He continues on lactulose, and Xifaxan, for his hyperammonemia. Additional recommendations and suggestions are forthcoming. Prognosis is certainly guarded. Plan dated 02/02/2022. I will order a stat cortisol level. Patient's labs, x-rays, medications are reviewed. The patient remains on appropriate medications including norepinephrine at [address] was negative. We'll order an EEG and a neurology consultation. We will redouble our efforts to control the patient's ammonia level. Unnecessary medications are discontinued. Prognosis is poor. We will continue to follow make recommendations along the way. Time with Patient: Greater than 30
--- NOTE | 2022-02-02 11:13 | P.PN ---
Subjective Progress Note Date: 02/02/22 Principal diagnosis: Acute liver failure, jaundice This is a pleasant 61-year-old male who presented to the emergency department with complaints of generalized weakness. States that he's had some nausea and vomiting over the last 1 week duration. Patient history of diabetes mellitus, hypertension, and daily alcohol consumption. He denies previous history of liver disease. He was noted to have elevated bilirubin on admission. Gastroenterology was consulted for jaundice. Patient states that he drinks a pint and 5-6 beers daily. He has been drinking for 30-40 years. He denies any previous history of liver disease or liver cirrhosis. Patient states he did not realize that he was yellow, however he did state he noticed dark urine starting about one week ago. He denies any significant abdominal pain, however does feel distended. Denies any previous history of ascites or paracentesis. He currently denies any nausea vomiting, pain diarrhea. Home meds include s imvastatin metformin and lisinopril. Labs: WBC 10.2 hemoglobin 9.0 hematocrit 27 INR 1.3 sodium 129 potassium 3.4 BUN 14 creatinine 0.5 glucose 106 total bilirubin 12.1 AST 121 ALT [address] abdomen and pelvis reported fatty infiltration of the liver. Minimal atelectasis at the lung base. There is improvement compared to computed tomography scan 06/22/2021 some clearing of pulmonary interstitial edema. Abdominal ascites and fatty liver change compared to 06/22/2021 exam. Mass on the left lateral wall of the urinary bladder and follow-up recommended. Sigmoid diverticulosis. 01/01/2022: The patient was seen and examined today as follow-up. He seemed definitely more confused today. He knows his name however thought he was at home. Patient is requesting paracentesis be rescheduled and he is declining at this time. Nursing is reporting that patient is stating that he was given pills from a friend that visited yesterday evening. Unsure patient was hallucinating, likely going through detox as well as hepatic encephalopathy with elevated ammonia level at 100 today. LFTs continue to be elevated. 01/02/2022: Patient seen and examined today in the ICU. Yesterday patient became nonresponsive and was asystole. CPR was started and continued for 20 minutes. He was intubated and sent to the ICU. He remains sedated and intubated. No acute changes through the night. He does have gross hematuria and his Perdue catheter bag. Hemoglobin stable at 9.3 platelet count stable at 253,000, LFTs are trending down total bilirubin 11.3 AST 122 ALT 36 alkaline ph osphatase 637. Ammonia level currently pending. Patient is having multiple bowel movements on lactulose. Nursing is planning on placing a rectal tube. 622: Patient again seen and examined today in the ICU. He remains intubated and sedated. They tried to wean him off of sedation however he became quite tachycardic and remained sedated and intubated. Despite Xifaxan and lactulose patient's ammonia levels remained elevated, today 83. However LFTs are trending down. Patient is putting out decreased urine output, very dark urine. No other acute changes. Objective - Vital Signs Vital signs: Vital Signs Temp 99.7 F H 02/02/22 08:00 Pulse 130 H 02/02/22 11:03 Resp 19 02/02/22 09:15 BP 113/89 02/02/22 02:15 Pulse Ox 94 L 02/02/22 09:15 FiO2 50 02/02/22 10:43 Intake & Output 02/01/22 02/02/22 02/02/22 18:59 06:59 18:59 Intake Total 6645.241 2121.652 559.230 Output Total 270 165 435 Balance 5173.954 1078.652 124.230 Weight 83.9 kg Intake: IV 975 825 225 Sodium Chloride 0.9% 1, 975 825 225 000 ml @ 75 mls/hr IV . [id number] [facility] Rx#:[id number] Intake, IV Titration 850.177 176.652 214.230 Amount Magnesium Sulfate-D5w Pmx 200 1 gm In Dextrose/Water 1 100ml.bag @ 100 mls/hr IVPB Q1H [facility] Rx#: [id number] Norepinephrine 32 mg In 95.52 139.546 110.454 Sodium Chloride 0.9% 218 ml @ 0.03 MCG/KG/MIN 1.18 mls/hr IV .Q24H [facility] Rx#: [id number] Norepinephrine 4 mg In 254 Sodium Chloride 0.9% 250 ml @ 0.03 MCG/KG/MIN 9. 591 mls/hr IV .Q24H [facility] Rx#:[id number] Potassium Chloride 10 meq 200 In Water For Injection 1 100ml.bag @ 100 mls/hr IVPB Q1H [facility] Rx#: [id number] propofoL 1,000 mg In 100.657 37.106 103.776 Empty Bag 1 bag @ 15 MCG/ KG/MIN 7.552 mls/hr IV . [id number] [facility] Rx#:[id number] Tube Feeding 140 310 90 Other 30 60 30 Output: Urine 270 165 35 Stool 400 Other: Voiding Method Indwelling Catheter Indwelling Catheter Indwelling Catheter ABP, PAP, CO, CI - Last Documented Arterial Blood Pressure 95/61 - Exam General appearance: The patient is sedated and intubated HET: Head is normocephalic and atraumatic. Conjunctiva pink. Sclera deeply icteric. Neck: Supple without lymphadenopathy. Abdomen: Soft, nontender, nondistended. No guarding or rigidity. Extremities: Normal skin color and turgor. Patient with swelling of bilateral upper extremities as well as lower. Skin: No rashes, jaundice. Neurological: Sedated and intubated. - Labs CBC & Chem 7: 02/02/22 06:22 02/02/22 06:22 Labs: Abnormal Lab Results - Last 24 Hours (Table) 02/01/22 02/01/22 02/01/22 Range/Units 05:25 11:24 18:44 WBC (3.8-10.6) k/uL RBC (4.30-5.90) m/uL Hgb (13.0-17.5) gm/dL Hct (39.0-53.0) % MCV (80.0-100.0) fL RDW (11.5-15.5) % Macrocytosis Sodium (137-145) mmol/L Carbon Dioxide (22-30) mmol/L Creatinine (0.66-1.25) mg/dL Glucose (74-99) mg/dL POC Glucose (mg/dL) 204 H 205 H (70-110) mg/dL Calcium (8.4-10.2) mg/dL Total Bilirubin (0.2-1.3) mg/dL AST (17-59) U/L Alkaline Phosphatase (38-126) U/L Ammonia (<30) umol/L Total Protein (6.3-8.2) g/dL Albumin (3.5-5.0) g/dL Procalcitonin 1.64 H (0.02-0.09) ng/mL 02/02/22 02/02/22 02/02/22 Range/Units 00:04 06:21 06:22 WBC 19.0 H (3.8-10.6) k/uL RBC 2.74 L (4.30-5.90) m/uL Hgb 9.5 L (13.0-17.5) gm/dL Hct 29.9 L (39.0-53.0) % MCV 109.1 H (80.0-100.0) fL RDW 16.9 H (11.5-15.5) % Macrocytosis Marked A Sodium (137-145) mmol/L Carbon Dioxide (22-30) mmol/L Creatinine (0.66-1.25) mg/dL Glucose (74-99) mg/dL POC Glucose (mg/dL) 154 H 209 H (70-110) mg/dL Calcium (8.4-10.2) mg/dL Total Bilirubin (0.2-1.3) mg/dL AST (17-59) U/L Alkaline Phosphatase (38-126) U/L Ammonia (<30) umol/L Total Protein (6.3-8.2) g/dL Albumin (3.5-5.0) g/dL Procalcitonin (0.02-0.09) ng/mL 02/02/22 02/02/22 Range/Units 06:22 07:42 WBC (3.8-10.6) k/uL RBC (4.30-5.90) m/uL Hgb (13.0-17.5) gm/dL Hct (39.0-53.0) % MCV (80.0-100.0) fL RDW (11.5-15.5) % Macrocytosis Sodium 135 L (137-145) mmol/L Carbon Dioxide 19 L (22-30) mmol/L Creatinine 1.32 H (0.66-1.25) mg/dL Glucose 188 H (74-99) mg/dL POC Glucose (mg/dL) (70-110) mg/dL Calcium 7.2 L (8.4-10.2) mg/dL Total Bilirubin 11.3 H (0.2-1.3) mg/dL AST 87 H (17-59) U/L Alkaline Phosphatase 739 H (38-126) U/L Ammonia 83 H (<30) umol/L Total Protein 5.2 L (6.3-8.2) g/dL Albumin 2.2 L (3.5-5.0) g/dL Procalcitonin (0.02-0.09) ng/mL Microbiology - Last 24 Hours (Table) 01/31/22 20:52 Gram Stain - Preliminary Sputum Sputum Culture - Preliminary Assessment and Plan (1) Decompensation of cirrhosis of liver Narrative/Plan: This is 61-year-old male with significant history of alcohol abuse drinking 1 pint +5-6 beers daily for the last 30-40 years. No previous history of known liver disease. No previous history of paracentesis. Came into the emergency department for weakness was found to have a total bilirubin of 12.1. Patient also has abdominal distention, ascites. Patient has acute alcoholic hepatitis, with decompensation of cirrhosis likely related to alcohol with ascites. Will start patient on diuretics, plan for paracentesis. After initial exam patient was found unresponsive, XENIA DUARTE was called and CPR was initiated for 20 minutes. Patient was intubated and sent to the ICU. Patient's sister and mother at the bedside. Discussed there is a possibility for some improvement in his liver disease as patient quits drinking. LFTs continue to improve, ammonia levels remained elevated. Patient is on both sides accident and lactulose 30 g 3 times a day. Rectal tube in place with multiple bowel movements. Current Visit: Yes Status: Acute Code(s): K72.90 - HEPATIC FAILURE, UNSPECIFIED WITHOUT COMA; K74.60 - UNSPECIFIED CIRRHOSIS OF LIVER SNOMED Code(s): 900972503 (2) Jaundice Current Visit: Yes Status: Acute Code(s): R17 - UNSPECIFIED JAUNDICE SNOMED Code(s): 52987245 (3) Ascites Current Visit: Yes Status: Acute Code(s): R18.8 - OTHER ASCITES SNOMED Code(s): 172267412 (4) Acute liver failure Narrative/Plan: Acute alcoholic hepatitis related to underlying years of alcohol abuse. Current Visit: Yes Status: Acute Code(s): K72.00 - ACUTE AND SUBACUTE HEPATIC FAILURE WITHOUT COMA SNOMED Code(s): 024526041 (5) Alcohol abuse Current Visit: Yes Status: Acute Code(s): F10.10 - ALCOHOL ABUSE, UNCOMPLICATED SNOMED Code(s): 56300938 (6) Hyponatremia Narrative/Plan: improving Current Visit: Yes Status: Acute Code(s): E87.1 - HYPO-OSMOLALITY AND HYPONATREMIA SNOMED Code(s): 07651418 (7) Hypokalemia Narrative/Plan: resolved Current Visit: Yes Status: Acute Code(s): E87.6 - HYPOKALEMIA SNOMED Code(s): 40886952 (8) Hypomagnesemia Narrative/Plan: resolved Current Visit: Yes Status: Acute Code(s): E83.42 - HYPOMAGNESEMIA SNOMED Code(s): 480235245 (9) Cardiopulmonary arrest with successful resuscitation Narrative/Plan: Patient remains in the ICU, under the care of layout inspector Current Visit: Yes Status: Acute Code(s): I46.9 - CARDIAC ARREST, CAUSE UNSPECIFIED SNOMED Code(s): 704866354 Plan: 1. Continue symptomatic and supportive care 2. Continue with ICU management 3. Lactulose ordered 30 g 3 times a day, titrate to have 2-3 bowel movements daily 4. Daily ammonia 5. Continue Xifaxin 6. Encourage/recommend alcohol abstinence Thank you for this consultation, we will continue to follow. Dr. Shanae Braun I agree with the dictator's note, documented as a scribe by Gail Avila.
[2022-02-02 12:42] LABS: Glucose,Whole Blood 201 mg/dL (70-110)
--- NOTE | 2022-02-02 14:59 | P.PN ---
Subjective Progress Note Date: 02/02/22 This is a 61-year-old male who was recently admitted with acute liver failure with severe jaundice with alcohol and had an episode of cardiopulmonary arrest with pulseless electrical activity and is being closely monitored. Patient continues to be in the ICU on mechanical ventilation with an FiO2 of 50% and PEEP is 5. Multiple medical consultations including pulmonary and GI are following. Patient is maintained on lactulose 3 times a day and ammonia is slightly improved at 79 today. Will order 2-D echo. WBC remains elevated at 17.9 and hemoglobin is stable at 9.3. Some hematuria and severely concentrated urine noted in the Perdue. Other labs within normal limits. Bilirubin down to 11.3 today. No plans for weaning at this time. Family at the bedside and questions and concerns were answered. 02/02/2022 Patient is seen and evaluated in follow-up this morning and is currently off propofol and not waking up and not following any commands and neurology has been consulted. GI following closely and patient is maintained on lactulose along with rifampin. Patient continues to have dark concentrated urine noted in the indwelling Perdue catheter along with continued loose stool. Patient is currently off pressor support and prognosis remains extremely guarded. Heart rate remains elevated and blood pressures are soft in the 90s to low 100s systolic. Patient continues on mechanical ventilation with an FiO2 of 50% and PEEP is 5. Urine culture showing presumptive staph aureus. WBC is 19 with a hemoglobin of 9.5 sodium is 135 with a potassium of 3.9, creatinine is 1.32, total bilirubin is 11.3, LFTs are trending down, ammonia remains elevated and is 83 today. Chest x-ray today showed stable bibasilar acute infiltrates and/or atelectasis. EEG is ordered and neurology consult is pending at this time. Review of systems: Unable to obtain as patient is currently intubated and sedated Active Medications Albuterol/Ipratropium (Ipratropium-Albuterol 3 Ml Neb) 3 ml INHALATION RT-Q4H [facility] [place] Last Admin: 02/02/22 11:02 Dose: 3 ml Chlorhexidine Gluconate (Chlorhexidine Gluconate 15 Ml Cup) 15 ml MUCOUS MEM BID [facility] [place] Last Admin: 02/02/22 07:56 Dose: 15 ml Dextrose/Water (Dextrose 50% Syringe 50 Ml) 25 ml IVP PER PROTOCOL PRN; Protocol PRN Reason: Hypoglycemia Dextrose/Water (Dextrose 50% Syringe 50 Ml) 50 ml IVP PER PROTOCOL PRN; Protocol PRN Reason: Hypoglycemia Sodium Chloride (Saline 0.9%) 1,000 mls @ 75 mls/hr IV .[id number] [facility] [place] Last Admin: 02/02/22 07:21 Dose: Not Given Propofol 1,000 mg/ IV Solution 100 mls @ 7.552 mls/hr IV .[id number] BRITTANIE; Protocol Last Titration: 02/02/22 09:13 Dose: 0 mcg/kg/min, 0 mls/hr Norepinephrine Bitartrate 4 mg (/ Sodium Chloride) 254 mls @ 9.591 mls/hr IV .Q24H BRITTANIE; Protocol Last Admin: 02/02/22 07:57 Dose: Not Given Norepinephrine Bitartrate 32 (mg/ Sodium Chloride) 250 mls @ 1.18 mls/hr IV .Q24H BRITTANIE; Protocol Last Titration: 02/02/22 09:13 Dose: Infused Insulin Aspart (Insulin Aspart (Novolog) 100 Unit/Ml Vial) 0 unit SQ Q6HR [facility] [place]; Protocol Last Admin: 02/02/22 12:55 Dose: 4 unit Lactulose (Lactulose 20 Gm/30 Ml Cup) 30 gm PO TID [facility] [place] Last Admin: 02/02/22 07:56 Dose: 30 gm Miscellaneous Information (Potassium Replacement Protocol 1 Each Misc) 1 each MISCELLANE DAILY PRN; Protocol PRN Reason: Per Protocol Miscellaneous Information (Magnesium Replacement Protocol 1 Each Misc) 1 each MISCELLANE DAILY PRN; Protocol PRN Reason: Per Protocol Naloxone HCl (Naloxone 0.4 Mg/Ml 1 Ml Vial) 0.2 mg IV Q2M PRN PRN Reason: Opioid Reversal Pantoprazole Sodium (Pantoprazole 40 Mg/10 Ml Vial) 40 mg IV DAILY [facility] [place] Last Admin: 02/02/22 07:56 Dose: 40 mg Rifaximin (Rifaximin 550 Mg Tablet) 550 mg PO BID [facility] [place]; Protocol Stop: 03/03/22 21:01 Last Admin: 02/02/22 07:57 Dose: 550 mg Spironolactone (Spironolactone 25 Mg Tab) 100 mg PO DAILY [facility] [place] Last Admin: 02/02/22 07:56 Dose: 100 mg Thiamine HCl (Thiamine 100 Mg Tab) 100 mg PO DAILY [facility] [place] Last Admin: 02/02/22 07:56 Dose: 100 mg PHYSICAL EXAMINATION: GENERAL: The patient is currently intubated on mechanical vent, ill-appearing elderly male, jaundiced, off sedation with no response HEENT: Pupils are round and equally reacting to light. EOMI. scleral icterus noted. conjunctival pallor. Normocephalic, atraumatic. CARDIOVASCULAR: S1 and S2 muffled PULMONARY: diminished breath sounds bilaterally with some scattered rhonchi noted. ABDOMEN: soft. Distended, tympanic. normoactive bowel sounds. MUSCULOSKELETAL: No joint swelling or deformity. EXTREMITIES: No cyanosis, clubbing, or pedal edema. NEUROLOGICAL: Unable to completely assess as patient is intubated and sedated SKIN: No rashes. Jaundice Assessment: Acute hepatic failure secondary to alcoholic liver disease Acute cardiovascular arrest and acute respiratory failure on mechanical ventilation Hypertension Diabetes mellitus, type II Alcoholic cirrhosis Continued ongoing nicotine dependence GI prophylaxis DVT prophylaxis Full code Plan: Recommend to continue with current medications and management with multiple medical consultations including GI and pulmonary following. Patient is continued on mechanical vent with an FiO2 of 50% and PEEP is 5. Patient is undergoing sedation holiday and has been off propofol overnight with no response and repeat EEG is ordered along with neurology consultation which is pending at this time. Recommend continue with lactulose 3 times a day and repeat ammonia daily as it remains elevated . Recommend monitoring of blood sugars per ICU protocol. Dietitian consulted for enteral nutrition as patient is currently intubated. recommend repeat chest x-ray in the morning along with labs. Due to multiple complex medical issues, prognosis is extremely poor and guarded. The impression and plan of care has been dictated by Tosin Godwin, nurse practitioner as directed. Dr. Jose Eduardo MD I have performed a history and examination and MDM of this patient, discussed the same with the dictator, and agree with the dictator's assessment and plan as written ,documented as a scribe. Based on total visit time, I have performed more than 50% of the visit. Any additional findings or plans will be noted. Objective - Vital Signs Vital signs: Vital Signs Temp 98.9 F 02/02/22 12:00 Pulse 135 H 02/02/22 14:30 Resp 29 H 02/02/22 14:30 BP 113/89 02/02/22 02:15 Pulse Ox 92 L 02/02/22 14:30 FiO2 50 02/02/22 12:00 Intake & Output 02/01/22 02/02/22 02/02/22 18:59 06:59 18:59 Intake Total 0495.029 7491.652 1154.230 Output Total 270 165 525 Balance 0578.162 6965.652 629.230 Weight 83.9 kg Intake: IV 975 825 600 Sodium Chloride 0.9% 1, 975 825 600 000 ml @ 75 mls/hr IV . [id number] BRITTANIE Rx#:[id number] Intake, IV Titration 850.177 176.652 214.230 Amount Magnesium Sulfate-D5w Pmx 200 1 gm In Dextrose/Water 1 100ml.bag @ 100 mls/hr IVPB Q1H BRITTANIE Rx#: [id number] Norepinephrine 32 mg In 95.52 139.546 110.454 Sodium Chloride 0.9% 218 ml @ 0.03 MCG/KG/MIN 1.18 mls/hr IV .Q24H BRITTANIE Rx#: [id number] Norepinephrine 4 mg In 254 Sodium Chloride 0.9% 250 ml @ 0.03 MCG/KG/MIN 9. 591 mls/hr IV .Q24H BRITTANIE Rx#:[id number] Potassium Chloride 10 meq 200 In Water For Injection 1 100ml.bag @ 100 mls/hr IVPB Q1H BRITTANIE Rx#: [id number] propofoL 1,000 mg In 100.657 37.106 103.776 Empty Bag 1 bag @ 15 MCG/ KG/MIN 7.552 mls/hr IV . [id number] BRITTANIE Rx#:[id number] Tube Feeding 140 310 280 Other 30 60 60 Output: Urine 270 165 125 Stool 400 Other: Voiding Method Indwelling Catheter Indwelling Catheter Indwelling Catheter ABP, PAP, CO, CI - Last Documented Arterial Blood Pressure 100/62 - Labs CBC & Chem 7: 02/02/22 06:22 02/02/22 06:22 Labs: Abnormal Lab Results - Last 24 Hours (Table) 02/01/22 02/01/22 02/02/22 Range/Units 05:25 18:44 00:04 WBC (3.8-10.6) k/uL RBC (4.30-5.90) m/uL Hgb (13.0-17.5) gm/dL Hct (39.0-53.0) % MCV (80.0-100.0) fL RDW (11.5-15.5) % Macrocytosis Sodium (137-145) mmol/L Carbon Dioxide (22-30) mmol/L Creatinine (0.66-1.25) mg/dL Glucose (74-99) mg/dL POC Glucose (mg/dL) 205 H 154 H (70-110) mg/dL Calcium (8.4-10.2) mg/dL Total Bilirubin (0.2-1.3) mg/dL AST (17-59) U/L Alkaline Phosphatase (38-126) U/L Ammonia (<30) umol/L Total Protein (6.3-8.2) g/dL Albumin (3.5-5.0) g/dL Procalcitonin 1.64 H (0.02-0.09) ng/mL 02/02/22 02/02/22 02/02/22 Range/Units 06:21 06:22 06:22 WBC 19.0 H (3.8-10.6) k/uL RBC 2.74 L (4.30-5.90) m/uL Hgb 9.5 L (13.0-17.5) gm/dL Hct 29.9 L (39.0-53.0) % MCV 109.1 H (80.0-100.0) fL RDW 16.9 H (11.5-15.5) % Macrocytosis Marked A Sodium 135 L (137-145) mmol/L Carbon Dioxide 19 L (22-30) mmol/L Creatinine 1.32 H (0.66-1.25) mg/dL Glucose 188 H (74-99) mg/dL POC Glucose (mg/dL) 209 H (70-110) mg/dL Calcium 7.2 L (8.4-10.2) mg/dL Total Bilirubin 11.3 H (0.2-1.3) mg/dL AST 87 H (17-59) U/L Alkaline Phosphatase 739 H (38-126) U/L Ammonia (<30) umol/L Total Protein 5.2 L (6.3-8.2) g/dL Albumin 2.2 L (3.5-5.0) g/dL Procalcitonin (0.02-0.09) ng/mL 02/02/22 02/02/22 Range/Units 07:42 12:40 WBC (3.8-10.6) k/uL RBC (4.30-5.90) m/uL Hgb (13.0-17.5) gm/dL Hct (39.0-53.0) % MCV (80.0-100.0) fL RDW (11.5-15.5) % Macrocytosis Sodium (137-145) mmol/L Carbon Dioxide (22-30) mmol/L Creatinine (0.66-1.25) mg/dL Glucose (74-99) mg/dL POC Glucose (mg/dL) 201 H (70-110) mg/dL Calcium (8.4-10.2) mg/dL Total Bilirubin (0.2-1.3) mg/dL AST (17-59) U/L Alkaline Phosphatase (38-126) U/L Ammonia 83 H (<30) umol/L Total Protein (6.3-8.2) g/dL Albumin (3.5-5.0) g/dL Procalcitonin (0.02-0.09) ng/mL Microbiology - Last 24 Hours (Table) 01/31/22 20:52 Gram Stain - Preliminary Sputum Sputum Culture - Preliminary Presumptive Staph aureus
[2022-02-02 17:41] LABS: Glucose,Whole Blood 203 mg/dL (70-110)
[2022-02-02] MEDS: NOREPINEPHRINE 32 MG in SODIUM CHLORIDE 0.9% 218 ML IV SCH (20:00)
--- NOTE | 2022-02-02 22:08 | P.CNNES ---
History of Present Illness Consult date: 02/02/22 Requesting physician: Liset Montenegro Reason for Consult: Encephalopathy History of Present Illness: Patient is a 61-year-old male with history of hypertension, diabetes, alcohol abuse who came to the hospital on 01/29/2022 with weakness, nausea and vomiting for the past week. He was feeling very weak, but continued to drink. Patient reportedly drinks half pint and 5-6 beers per day. Last drink was the night prior to arrival. Patient was diagnosed with acute liver failure, alcohol abuse, hypomagnesemia, nausea, vomiting and alcoholic ketosis. Patient's ammonia was 39 on admission, but went up to 101 on 01/31/2022. Patient had a cardiac arrest in the hospital on 01/31/2022 at around 11 AM. Initial rhythm was PEA. Patient was given 4 doses of epinephrine, 2 doses of bicarb and 2 doses of Narcan. Patient was intubated. After CPR, there was return of spontaneous escalation and patient was transferred to ICU. He had a second cardiac arrest. He received 3 doses of epinephrine and bicarbonate 1, again R OSC was achieved with BP 187/121. According to electronic medical records, the downtime was about 20 minutes. Patient's blood test shows WBC 19.0 hemoglobin 9.5 with elevated MCV 109. Platelets are 198. Sodium 135 potassium 3.9, BUN 19, creatinine 1.32. AST 87, ALT 32. Ammonia was 101 on 01/31/2022, most recent ammonia level is 83. Chest x-ray revealed stable bibasilar acute infiltrates and/or atelectasis. 2-D echo revealed normal left ventricular size and systolic function. Mild TR. CT head 2021 and 5:09 PM revealed no acute process. I personally review CT head, given the findings. No acute process. Mild atrophy. Per nursing report, patient was on sedation holiday from 9 AM to 3 PM. Patient started breathing over the ventilator and started desaturating, therefore he was placed back on the sedation, currently on propofol 50 g per program per minute. With sedation holiday, patient had some nonpurposeful movement. He does breathe over the ventilator. No gag. He does have some cough sporadically. Patient at present is comatose. Review of Systems Patient's nurse does not know about details about review of systems. She did have some nausea vomiting prior to ". Family members not available. ROS unobtainable: due to endotracheal tube, due to mental status Past Medical History Past Medical History: Hypertension Additional Past Medical History / Comment(s): DM type 2, History of Any Multi-Drug Resistant Organisms: None Reported Past Surgical History: Cholecystectomy, Orthopedic Surgery Additional Past Surgical History / Comment(s): KNEE ARTHROSCOPY, PILONIDAL CYST. Past Anesthesia/Blood Transfusion Reactions: No Reported Reaction Past Psychological History: No Psychological Hx Reported Smoking Status: Current every day smoker Past Alcohol Use History: Daily Past Drug Use History: None Reported - Past Family History Father Additional Family Medical History / Comment(s): Colon CA, bone CA, at 78 years old from bone CA Mother Additional Family Medical History / Comment(s): breast CA Medications and Allergies Home Medications Medication Instructions Recorded Confirmed Type Simvastatin [Zocor] 40 mg PO HS 06/22/21 01/29/22 History lisinopriL 40 mg PO DAILY 06/22/21 01/29/22 History metFORMIN HCL [Glucophage] 500 mg PO DAILY 06/22/21 01/29/22 History Allergies Allergy/AdvReac Type Severity Reaction Status Date / Time No Known Allergies Allergy Verified 01/29/22 16:02 Physical Examination - Vital Signs Vital Signs: Vital Signs Temp Pulse Resp BP Pulse Ox FiO2 02/02/22 13:30 134 H 28 H 93 L 02/02/22 13:15 133 H 30 H 92 L 02/02/22 13:00 133 H 8 L 92 L 02/02/22 12:45 123 H 31 H 94 L 02/02/22 12:30 126 H 28 H 93 L 02/02/22 12:15 123 H 27 H 94 L 02/02/22 12:00 98.9 F 122 H 27 H 95 50 02/02/22 11:45 120 H 24 94 L 02/02/22 11:30 122 H 27 H 94 L 02/02/22 11:15 124 H 28 H 93 L 02/02/22 11:03 130 H 02/02/22 11:00 134 H 24 93 L 02/02/22 10:45 131 H 28 H 93 L 02/02/22 10:43 50 02/02/22 10:30 129 H 23 93 L 02/02/22 10:15 126 H 27 H 93 L 02/02/22 10:00 125 H 27 H 94 L 02/02/22 09:45 138 H 27 H 93 L 02/02/22 09:30 134 H 27 H 94 L 02/02/22 09:15 129 H 19 94 L 02/02/22 09:00 130 H 19 95 02/02/22 08:45 129 H 18 95 02/02/22 08:30 128 H 18 95 02/02/22 08:15 133 H 20 95 02/02/22 08:00 99.7 F H 128 H 20 95 50 02/02/22 07:45 124 H 21 95 02/02/22 07:37 50 02/02/22 07:32 124 H 02/02/22 07:30 124 H 19 97 02/02/22 07:19 129 H 02/02/22 07:15 135 H 18 95 02/02/22 07:10 50 02/02/22 07:00 138 H 15 94 L 02/02/22 06:45 134 H 21 95 02/02/22 06:30 134 H 23 95 02/02/22 06:15 128 H 22 95 02/02/22 06:00 135 H 23 95 02/02/22 05:45 134 H 20 95 02/02/22 05:30 128 H 15 96 02/02/22 05:15 122 H 21 95 02/02/22 05:05 125 H 02/02/22 05:00 123 H 18 97 02/02/22 04:45 128 H 19 96 02/02/22 04:39 132 H 02/02/22 04:30 140 H 30 H 94 L 50 02/02/22 04:15 135 H 16 96 02/02/22 04:00 98.6 F 133 H 20 96 50 02/02/22 03:45 129 H 19 96 02/02/22 03:30 131 H 22 96 02/02/22 03:15 131 H 19 96 02/02/22 03:10 129 H 18 96 02/02/22 02:56 130 H 19 95 02/02/22 02:30 126 H 19 95 02/02/22 02:15 123 H 20 113/89 96 02/02/22 02:00 128 H 18 96 02/02/22 01:45 130 H 19 96 02/02/22 01:30 129 H 24 98 10/06/22 01:15 131 H 16 97 02/02/22 01:00 130 H 20 97 02/02/22 00:45 133 H 21 97 02/02/22 00:30 137 H 18 96 02/02/22 00:15 128 H 18 96 02/02/22 00:09 123 H 02/02/22 00:00 98.8 F 130 H 20 98 50 02/01/22 23:49 138 H 02/01/22 23:47 50 02/01/22 23:45 133 H 22 97 02/01/22 23:30 131 H 21 96 02/01/22 23:15 133 H 17 96 02/01/22 23:04 129 H 19 97 02/01/22 23:00 134 H 17 97 02/01/22 22:45 133 H 18 97 02/01/22 22:30 134 H 19 96 02/01/22 22:15 131 H 20 96 02/01/22 22:00 125 H 20 96 02/01/22 21:45 130 H 17 97 02/01/22 21:30 131 H 22 96 02/01/22 21:15 131 H 19 96 02/01/22 21:00 122 H 19 97 02/01/22 20:45 76 13 98 02/01/22 20:42 124 H 02/01/22 20:32 121 H 02/01/22 20:30 126 H 19 97 02/01/22 20:26 50 02/01/22 20:15 131 H 24 97 02/01/22 20:00 98.9 F 130 H 22 96 50 02/01/22 19:51 50 02/01/22 19:45 131 H 25 H 95 02/01/22 19:30 126 H 24 96 02/01/22 19:15 126 H 23 96 02/01/22 19:00 122 H 21 97 02/01/22 18:45 121 H 21 97 02/01/22 18:30 122 H 21 97 02/01/22 18:15 121 H 20 97 02/01/22 18:00 121 H 20 97 02/01/22 17:45 124 H 22 97 02/01/22 17:30 118 H 18 97 02/01/22 17:15 122 H 22 97 02/01/22 17:00 124 H 19 97 02/01/22 16:45 114 H 18 97 02/01/22 16:30 122 H 18 97 02/01/22 16:15 126 H 18 96 02/01/22 16:00 124 H 18 97 02/01/22 15:45 118 H 18 97 02/01/22 15:30 110 H 18 98 02/01/22 15:29 110 H 02/01/22 15:16 120 H 02/01/22 15:15 121 H 18 96 50 02/01/22 15:05 50 02/01/22 15:00 112 H 17 96 02/01/22 14:45 112 H 19 97 02/01/22 14:30 113 H 15 96 Intake and Output 02/01/22 02/02/22 02/02/22 22:59 06:59 14:59 Intake Total 1043.334 796 9602.230 Output Total 135 130 510 Balance 908.533 740 529.230 Intake: IV 600 600 525 Sodium Chloride 0.9% 1, 600 600 525 000 ml @ 75 mls/hr IV . [id number] BRITTANIE Rx#:[id number] Intake, IV Titration 213.533 214.230 Amount Norepinephrine 32 mg In 139.546 110.454 Sodium Chloride 0.9% 218 ml @ 0.03 MCG/KG/MIN 1.18 mls/hr IV .[id number] BRITTANIE Rx#: [id number] propofoL 1,000 mg In 73.987 103.776 Empty Bag 1 bag @ 15 MCG/ KG/MIN 7.552 mls/hr IV . [id number] BRITTANIE Rx#:[id number] Tube Feeding 170 240 240 Other 60 30 60 Output: Urine 135 130 110 Stool 400 Other: Voiding Method Indwelling Catheter Indwelling Catheter Indwelling Catheter ABP, PAP, CO, CI - Last 8 Hours Arterial Blood Pressure 101/65 Arterial Blood Pressure 86/60 Arterial Blood Pressure 104/72 Arterial Blood Pressure 107/67 Arterial Blood Pressure 110/67 Arterial Blood Pressure 109/66 Arterial Blood Pressure 113/67 Arterial Blood Pressure 110/67 Arterial Blood Pressure 102/63 Arterial Blood Pressure 98/61 Arterial Blood Pressure 90/64 Arterial Blood Pressure 100/64 Arterial Blood Pressure 106/67 Arterial Blood Pressure 95/57 Arterial Blood Pressure 95/62 Arterial Blood Pressure 94/60 Arterial Blood Pressure 92/67 Arterial Blood Pressure 95/61 Arterial Blood Pressure 103/64 Arterial Blood Pressure 110/69 Arterial Blood Pressure 101/64 Arterial Blood Pressure 96/61 Arterial Blood Pressure 100/64 Arterial Blood Pressure 99/62 Arterial Blood Pressure 102/67 Arterial Blood Pressure 100/62 Arterial Blood Pressure 91/61 Arterial Blood Pressure 102/64 Arterial Blood Pressure 95/59 Patient is a late middle aged male, who is comatose. Patient is obviously icteric. No obvious seizure-like activity noted. Patient is intubated, on mechanical ventilator. Patient is comatose, with GCS of 3. Patient on propofol 50 mcg/kg/m. On cranial nerve examination, pupils are equal, round and mildly reacting to light, oculocephalics are absent, corneals absent. Patient has a weak cough. No gag. Other lower cranial nerves cannot be tested. Patient has bilateral proptosis. On muscle strength testing, patient does not respond to vocal commands, or painful stimuli. Deep tendon reflexes are absent all over and plantars are flat. Sensory to touch or painful stimuli was no response. Cerebellar function and gait cannot be assessed. On general examination, there is no carotid bruit or murmur, S1-S2 audible. Chest is clear on consultation. Abdomen is protuberant, with obvious ascites. Bowel sounds could not be clearly heard. Patient has moderate peripheral edema. Patient has some ecchymosis. Results - Laboratory Findings CBC and BMP: 02/02/22 06:22 02/02/22 06:22 Abnormal Lab Findings: Abnormal Labs 01/29/22 01/29/22 01/29/22 13:38 13:51 13:51 WBC RBC Hgb Hct MCV MCH RDW Neutrophils # Macrocytosis PT INR ABG pO2 ABG Total CO2 ABG O2 Saturation Sodium 129 L Potassium Chloride 92 L Carbon Dioxide 19 L BUN 22 H Creatinine Glucose 143 H POC Glucose (mg/dL) 167 H Plasma Lactic Acid Juan 3.2 H* Calcium 8.2 L Phosphorus Magnesium 1.5 L Total Bilirubin 13.6 H Conjugated Bilirubin 8.5 H Unconjugated Bilirubin 1.7 H Delta Bilirubin 3.4 H AST 131 H Alkaline Phosphatase 776 H Ammonia 39 H Total Protein Albumin 3.0 L Procalcitonin Urine Protein Urine Ketones Urine Blood Urine Bilirubin Urine Bacteria Hyaline Casts Urine Mucus U Benzodiazepines Scrn 01/29/22 01/29/22 01/29/22 13:51 13:51 17:24 WBC RBC 2.73 L Hgb 9.9 L Hct 29.4 L MCV 107.5 H MCH 36.3 H RDW Neutrophils # Macrocytosis Marked A PT 12.6 H INR 1.2 H ABG pO2 ABG Total CO2 ABG O2 Saturation Sodium Potassium Chloride Carbon Dioxide BUN Creatinine Glucose POC Glucose (mg/dL) Plasma Lactic Acid Juan Calcium Phosphorus Magnesium Total Bilirubin Conjugated Bilirubin Unconjugated Bilirubin Delta Bilirubin AST Alkaline Phosphatase Ammonia Total Protein Albumin Procalcitonin Urine Protein Trace H Urine Ketones 1+ H Urine Blood Moderate H Urine Bilirubin 4+ H Urine Bacteria Rare H Hyaline Casts 4 H Urine Mucus Occasional H U Benzodiazepines Scrn 01/29/22 01/30/22 01/30/22 20:48 05:59 06:42 WBC RBC 2.51 L Hgb 9.0 L Hct 27.2 L MCV 108.6 H MCH 35.9 H RDW Neutrophils # 8.2 H Macrocytosis Marked A PT INR ABG pO2 ABG Total CO2 ABG O2 Saturation Sodium Potassium Chloride Carbon Dioxide BUN Creatinine Glucose POC Glucose (mg/dL) 154 H 126 H Plasma Lactic Acid Juan Calcium Phosphorus Magnesium Total Bilirubin Conjugated Bilirubin Unconjugated Bilirubin Delta Bilirubin AST Alkaline Phosphatase Ammonia Total Protein Albumin Procalcitonin Urine Protein Urine Ketones Urine Blood Urine Bilirubin Urine Bacteria Hyaline Casts Urine Mucus U Benzodiazepines Scrn 01/30/22 01/30/22 01/30/22 06:42 11:35 12:07 WBC RBC Hgb Hct MCV MCH RDW Neutrophils # Macrocytosis PT 13.6 H INR 1.3 H ABG pO2 ABG Total CO2 ABG O2 Saturation Sodium 129 L Potassium 3.4 L Chloride 96 L Carbon Dioxide 21 L BUN Creatinine 0.53 L Glucose 106 H POC Glucose (mg/dL) 189 H Plasma Lactic Acid Juan Calcium 7.3 L Phosphorus Magnesium Total Bilirubin 12.1 H Conjugated Bilirubin Unconjugated Bilirubin Delta Bilirubin AST 121 H Alkaline Phosphatase 668 H Ammonia Total Protein 5.5 L Albumin 2.4 L Procalcitonin Urine Protein Urine Ketones Urine Blood Urine Bilirubin Urine Bacteria Hyaline Casts Urine Mucus U Benzodiazepines Scrn 01/30/22 01/30/22 01/31/22 16:43 20:44 06:03 WBC RBC Hgb Hct MCV MCH RDW Neutrophils # Macrocytosis PT INR ABG pO2 ABG Total CO2 ABG O2 Saturation Sodium Potassium Chloride Carbon Dioxide BUN Creatinine Glucose POC Glucose (mg/dL) 217 H 156 H 143 H Plasma Lactic Acid Juan Calcium Phosphorus Magnesium Total Bilirubin Conjugated Bilirubin Unconjugated Bilirubin Delta Bilirubin AST Alkaline Phosphatase Ammonia Total Protein Albumin Procalcitonin Urine Protein Urine Ketones Urine Blood Urine Bilirubin Urine Bacteria Hyaline Casts Urine Mucus U Benzodiazepines Scrn 01/31/22 01/31/22 01/31/22 08:28 08:28 08:28 WBC 12.8 H RBC 2.80 L Hgb 10.1 L Hct 30.2 L MCV 107.7 H MCH 35.9 H RDW Neutrophils # 10.1 H Macrocytosis Marked A PT INR ABG pO2 ABG Total CO2 ABG O2 Saturation Sodium 130 L Potassium Chloride 97 L Carbon Dioxide 19 L BUN Creatinine 0.55 L Glucose 142 H POC Glucose (mg/dL) Plasma Lactic Acid Juan Calcium 7.8 L Phosphorus Magnesium Total Bilirubin 13.3 H Conjugated Bilirubin Unconjugated Bilirubin Delta Bilirubin AST 124 H Alkaline Phosphatase 790 H Ammonia 101 H Total Protein Albumin 2.7 L Procalcitonin Urine Protein Urine Ketones Urine Blood Urine Bilirubin Urine Bacteria Hyaline Casts Urine Mucus U Benzodiazepines Scrn 01/31/22 01/31/22 01/31/22 10:13 11:15 11:35 WBC RBC Hgb Hct MCV MCH RDW Neutrophils # Macrocytosis PT INR ABG pO2 261 H ABG Total CO2 25 H ABG O2 Saturation 100.0 H Sodium Potassium Chloride Carbon Dioxide BUN Creatinine Glucose POC Glucose (mg/dL) 155 H 182 H Plasma Lactic Acid Juan Calcium Phosphorus Magnesium Total Bilirubin Conjugated Bilirubin Unconjugated Bilirubin Delta Bilirubin AST Alkaline Phosphatase Ammonia Total Protein Albumin Procalcitonin Urine Protein Urine Ketones Urine Blood Urine Bilirubin Urine Bacteria Hyaline Casts Urine Mucus U Benzodiazepines Scrn 01/31/22 01/31/22 01/31/22 12:05 12:05 12:05 WBC 11.0 H RBC 2.64 L Hgb 9.8 L Hct 30.0 L MCV 113.6 H D MCH 37.1 H RDW Neutrophils # Macrocytosis Marked A PT 15.3 H INR 1.5 H ABG pO2 ABG Total CO2 ABG O2 Saturation Sodium 131 L Potassium Chloride Carbon Dioxide 17 L BUN Creatinine 0.57 L Glucose 147 H POC Glucose (mg/dL) Plasma Lactic Acid Juan Calcium 7.6 L Phosphorus 2.4 L Magnesium Total Bilirubin 12.7 H Conjugated Bilirubin Unconjugated Bilirubin Delta Bilirubin AST 150 H Alkaline Phosphatase 690 H Ammonia Total Protein 5.7 L Albumin 2.5 L Procalcitonin Urine Protein Urine Ketones Urine Blood Urine Bilirubin Urine Bacteria Hyaline Casts Urine Mucus U Benzodiazepines Scrn 01/31/22 01/31/22 01/31/22 12:05 12:07 17:20 WBC RBC Hgb Hct MCV MCH RDW Neutrophils # Macrocytosis PT INR ABG pO2 ABG Total CO2 ABG O2 Saturation Sodium Potassium Chloride Carbon Dioxide BUN Creatinine Glucose POC Glucose (mg/dL) 203 H Plasma Lactic Acid Juan Calcium Phosphorus Magnesium Total Bilirubin Conjugated Bilirubin Unconjugated Bilirubin Delta Bilirubin AST Alkaline Phosphatase Ammonia 93 H Total Protein Albumin Procalcitonin Urine Protein Urine Ketones Urine Blood Urine Bilirubin Urine Bacteria Hyaline Casts Urine Mucus U Benzodiazepines Scrn Detected H 02/01/22 02/01/22 02/01/22 00:03 05:25 05:25 WBC 17.9 H RBC 2.67 L Hgb 9.3 L Hct 28.4 L MCV 106.4 H D MCH RDW 16.1 H Neutrophils # 14.9 H Macrocytosis PT INR ABG pO2 ABG Total CO2 ABG O2 Saturation Sodium 134 L Potassium Chloride Carbon Dioxide BUN Creatinine 0.65 L Glucose 183 H POC Glucose (mg/dL) 188 H Plasma Lactic Acid Juan Calcium 7.2 L Phosphorus Magnesium Total Bilirubin 11.3 H Conjugated Bilirubin Unconjugated Bilirubin Delta Bilirubin AST 122 H Alkaline Phosphatase 637 H Ammonia Total Protein 5.2 L Albumin 2.2 L Procalcitonin Urine Protein Urine Ketones Urine Blood Urine Bilirubin Urine Bacteria Hyaline Casts Urine Mucus U Benzodiazepines Scrn 02/01/22 02/01/22 02/01/22 05:25 05:27 05:47 WBC RBC Hgb Hct MCV MCH RDW Neutrophils # Macrocytosis PT INR ABG pO2 ABG Total CO2 26 H ABG O2 Saturation 98.7 H Sodium Potassium Chloride Carbon Dioxide BUN Creatinine Glucose POC Glucose (mg/dL) 204 H Plasma Lactic Acid Juan Calcium Phosphorus Magnesium Total Bilirubin Conjugated Bilirubin Unconjugated Bilirubin Delta Bilirubin AST Alkaline Phosphatase Ammonia Total Protein Albumin Procalcitonin 1.64 H Urine Protein Urine Ketones Urine Blood Urine Bilirubin Urine Bacteria Hyaline Casts Urine Mucus U Benzodiazepines Scrn 02/01/22 02/01/22 02/01/22 09:41 11:24 18:44 WBC RBC Hgb Hct MCV MCH RDW Neutrophils # Macrocytosis PT INR ABG pO2 ABG Total CO2 ABG O2 Saturation Sodium Potassium Chloride Carbon Dioxide BUN Creatinine Glucose POC Glucose (mg/dL) 204 H 205 H Plasma Lactic Acid Juan Calcium Phosphorus Magnesium Total Bilirubin Conjugated Bilirubin Unconjugated Bilirubin Delta Bilirubin AST Alkaline Phosphatase Ammonia 79 H Total Protein Albumin Procalcitonin Urine Protein Urine Ketones Urine Blood Urine Bilirubin Urine Bacteria Hyaline Casts Urine Mucus U Benzodiazepines Scrn 02/02/22 02/02/22 02/02/22 00:04 06:21 06:22 WBC 19.0 H RBC 2.74 L Hgb 9.5 L Hct 29.9 L MCV 109.1 H MCH RDW 16.9 H Neutrophils # Macrocytosis Marked A PT INR ABG pO2 ABG Total CO2 ABG O2 Saturation Sodium Potassium Chloride Carbon Dioxide BUN Creatinine Glucose POC Glucose (mg/dL) 154 H 209 H Plasma Lactic Acid Juan Calcium Phosphorus Magnesium Total Bilirubin Conjugated Bilirubin Unconjugated Bilirubin Delta Bilirubin AST Alkaline Phosphatase Ammonia Total Protein Albumin Procalcitonin Urine Protein Urine Ketones Urine Blood Urine Bilirubin Urine Bacteria Hyaline Casts Urine Mucus U Benzodiazepines Scrn 02/02/22 02/02/22 02/02/22 06:22 07:42 12:40 WBC RBC Hgb Hct MCV MCH RDW Neutrophils # Macrocytosis PT INR ABG pO2 ABG Total CO2 ABG O2 Saturation Sodium 135 L Potassium Chloride Carbon Dioxide 19 L BUN Creatinine 1.32 H Glucose 188 H POC Glucose (mg/dL) 201 H Plasma Lactic Acid Juan Calcium 7.2 L Phosphorus Magnesium Total Bilirubin 11.3 H Conjugated Bilirubin Unconjugated Bilirubin Delta Bilirubin AST 87 H Alkaline Phosphatase 739 H Ammonia 83 H Total Protein 5.2 L Albumin 2.2 L Procalcitonin Urine Protein Urine Ketones Urine Blood Urine Bilirubin Urine Bacteria Hyaline Casts Urine Mucus U Benzodiazepines Scrn Assessment and Plan Assessment: * Cardiac arrest with prolonged downtime of around 20 minutes per electronic records. 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 * Hepatic encephalopathy * Alcoholic cirrhosis * Status post intubation and mechanical ventilation. * Chronic alcohol abuse * Tobacco use * Diabetes * Hypertension * Hyperlipidemia Plan: * Patient underwent EEG today. It revealed background slowing of moderate to severe degree, suggestive of generalized cerebral dysfunction as can be seen with toxic metabolic encephalopathy or due to diffuse structural brain abnormality. No epileptiform activity was seen. No indication for antiepileptic medication. * Patient is comatose 48 hours post cardiac arrest. Patient also has multiple comorbid conditions. * Prognosis appears very guarded to poor. * Medical management as per IM, critical care and other specialties. * Neurology will follow. Thank you for the consult.
--- NOTE | 2022-02-02 23:51 | EEG ---
ELECTROENCEPHALOGRAM REPORT PREAMBLE: This is a 61 years old male with cardiac arrest. This study is performed to evaluate for any epileptiform activity. Patient is comatose. EEG FINDINGS: This is a 21-channel digital EEG recorded with video component, utilizing 10/20 international system with referential and bipolar montages. Background consists of poorly developed and regulated, mixed frequencies of 1 to 2 hertz delta intermixed with some 2 to 3 hertz theta activity seen in bihemispheric region. Background is not reactive to eye opening and closing. Very occasional relatively normal appearing background was seen briefly for a few seconds. No focal or generalized epileptiform activity was seen. IMPRESSION: This is an abnormal EEG due to background slowing of moderate to severe degree. This is suggestive of generalized cerebral dysfunction as can be seen with toxic metabolic encephalopathy or due to diffuse structural brain abnormality. Clinical correlation is recommended. No epileptiform activity was seen. MMODL / IJElian: [id number] / MTDD
[2022-02-03 00:11] VITALS: BP 109/82
[2022-02-03 00:55] LABS: Glucose,Whole Blood 171 mg/dL (70-110)
[2022-02-03] MEDS: INSULIN ASPART (NovoLOG) 100 UNIT/ML VIAL SQ SCH ×3 (00:56→13:51)
[2022-02-03] MEDS: IPRATROPIUM-ALBUTEROL 3 ML NEB INHALATION SCH ×4 (03:08→14:51)
[2022-02-03 05:00] LABS: Glucose,Whole Blood 191 mg/dL (70-110)
[2022-02-03 05:04] LABS: ABG Base Excess -5.7 mmol/L; ABG HCO3 21 mmol/L (21-25); ABG Oxygen Saturation 93.5 % (94-97); ABG PCO2 43 mmHg (35-45); ABG PO2 74 mmHg (83-108); ABG TCO2 22 mmol/L (19-24)
[2022-02-03 05:06] LABS: Allen Test Performed? no
[2022-02-03 05:07] LABS: Anisocytosis Slight; Basophils # (A) 0.1 k/uL (0-0.2); Basophils % (A) 0 %; Eosinophils % (A) 0 %; HCT 31.3 % (39.0-53.0); HGB 9.7 gm/dL (13.0-17.5); Hypochromasia Moderate; Lymphocytes # (A) 1.8 k/uL (1.0-4.8); Lymphocytes % (A) 9 %; MCHC 31.1 g/dL (31.0-37.0); MCV 112.7 fL (80.0-100.0); Macrocytosis Marked; Mean Platelet Volume 10.1; Monocytes # (A) 0.9 k/uL (0-1.0); Monocytes % (A) 5 %; Neutrophils # (A) 15.4 k/uL (1.3-7.7); Neutrophils % (A) 83 %; Platelet Count 194 k/uL (150-450); RBC 2.78 m/uL (4.30-5.90); RDW 17.7 % (11.5-15.5); WBC 18.6 k/uL (3.8-10.6)
[2022-02-03 05:17] LABS: Albumin 2.1 g/dL (3.5-5.0); Calcium 7.4 mg/dL (8.4-10.2); Magnesium 2.2 mg/dL (1.6-2.3); Total Bilirubin 11.6 mg/dL (0.2-1.3); Total Protein 5.3 g/dL (6.3-8.2)
[2022-02-03 05:50] LABS: Anisocytosis (M) Present; Poikilocytosis (M) Present; Polychromasia Present
[2022-02-03] MEDS: SODIUM CHLORIDE 0.9% 1,000 ML IV SCH (07:13)
--- NOTE | 2022-02-03 08:05 | XR ---
EXAMINATION TYPE: XR chest 1V portable DATE OF EXAM: 02/03/2022 COMPARISON: 02/02/2022 INDICATION: Tube placement TECHNIQUE: Single frontal view of the chest is obtained. FINDINGS: The heart size is normal. The pulmonary vasculature is normal. Small left pleural effusion is present. Some adjacent atelectasis present. Findings are worsening ove r the interval Endotracheal tube tip is 3.1 cm above the julio cesar. Nasogastric tube transverses the thorax. Left centr al venous catheter tip is in the distal superior vena cava region. No pneumothorax is evident. EKG le ads overlie the chest. IMPRESSION: 1. Increasing small left pleural effusion with adjacent infiltrate. Continued follow-up is recommende d. 2. Lines and catheters discussed above.
[2022-02-03] MEDS: LACTULOSE 20 GM/30 ML CUP PO SCH (09:46)
[2022-02-03] MEDS: RIFAXIMIN 550 MG TABLET PO SCH (09:46)
[2022-02-03] MEDS: THIAMINE 100 MG TAB PO SCH (09:46)
[2022-02-03] MEDS: PANTOPRAZOLE 40 MG/10 ML VIAL IV SCH (09:46)
[2022-02-03] MEDS: SPIRONOLACTONE 25 MG TAB PO SCH (09:46)
[2022-02-03] MEDS: CHLORHEXIDINE GLUCONATE 15 ML CUP MUCOUS MEM SCH (09:46)
[2022-02-03] MEDS: NOREPINEPHRINE 32 MG in SODIUM CHLORIDE 0.9% 218 ML IV SCH ×2 (09:58→16:07)
--- NOTE | 2022-02-03 10:40 | P.PN ---
Subjective Progress Note Date: 02/03/22 Principal diagnosis: Cardiopulmonary arrest. Pulmonary/critical care consult dated 01/31/2022. 61-year-old white male who presents to the emergency department on January 29, with complaints of weakness, nausea, and vomiting. The patient has a history of daily alcohol abuse, as well as both diabetes and hypertension. He apparently was extremely weak, was not able to eat or drink. Anyway, he was seen in the emergency room, and admitted with a diagnosis of alcohol withdrawal syndrome, and liver failure. This morning, the patient was found unresponsive, with pulseless electrical activity. A CODE BLUE was called. The patient underwent 2 episodes of resuscitation, with eventual return of spontaneous circulation. According to the hospital physician in charge, the patient had about 20 minutes of resuscitation. The patient was intubated on the floor, and transferred to the intensive care unit. We saw the patient in the ICU, room 267. In addition to evaluating his chart, we placed a right radial art line, a left internal jugular triple-lumen catheter, and reintubated the patient. The patient remains on the volume assist control, rate 18, tidal volume 450, FiO2 70%, and PEEP of 5. Arterial blood gases on 100%, show pO2 of 261, pCO2 43, pH is 7.35. The patient is on propofol at 30 mcg/kg/m, norepinephrine at 25.2 mcg/m, and saline at 75 mL an hour. White count 11, hemoglobin 9.8, hematocrit 30, platelet count 179,000. PT 15.3 with an INR 1.5. Sodium 131, potassium 3.9, chlorides 99, CO2 17, anion gap 15, BUN 12, creatinine 0.57. Calcium 7.6. Bilirubin is 12.7. AST 150. Alk phosphatase 690. Ammonia level is elevated at 93. Albumin is 2.5. Drug screens were positive for benzodiazepines. Chest x-ray shows an appropriate position of the endotracheal tube and NG tube. There is interval development of bibasilar patchy opacities. CT of the abdomen and pelvis shows sigmoid diverticulosis, mass on the left lateral wall of the urinary bladder, abdominal ascites, and fatty infiltration of the liver. Progress note dated 02/01/2022. 61-year-old male seen yesterday in consultation. The patient was admitted with a diagnosis of acute liver disease, and possible alcohol withdrawal syndrome. The patient had a cardiopulmonary arrest yesterday, with about 20 minutes of total resuscitation. He was transferred to the intensive care unit. A right radial art line was placed as well as a left catheter. Currently, the patient remains on the ventilator. CAT scan of the brain was negative. He is on volume assist control, rate of 18, tidal volume 450, FiO2 50%, PEEP of 5. Blood gases show a PaO2 of 101, pCO2 36, pH is 7.44. The patient's on saline at 75 mL an hour, norepinephrine at 26 mcg/m, and propofol at 25 mcg/kg/m. We are going to start the patient on tube feeds immediately, and today, even though he is likely not ready for weaning and extubation, we will do a daily interruption of sedation. White count 17.9, hemoglobin 9.3, hematocrit 28.4, and platelet count 253,000. Sodium 134, potassium 3.6, chlorides 103, CO2 22, anion gap 9, BUN 14, creatinine 0.65. Ammonia level is 79. Albumin is 2.2. Chest x-ray shows some diffuse infiltrates, and tubes, and lines, are in good position. Progress note dated 02/02/2022. 61-year-old male seen in consultation 2 days ago. The patient is status post cardiopulmonary arrest. He has a history of acute liver disease, possible alcohol withdrawal syndrome, and hyperammonemia, with metabolic encephalopathy. He had about 20 minutes of total resuscitation. The patient was intubated, and transferred to the intensive care unit. I right radial art line was placed, as was a left internal jugular triple-lumen catheter. He remains on the ventilator. Currently, volume assist control, rate 18, tidal volume 450, FiO2 50%, and PEEP of 5. Blood gases are essentially normal with a pO2 of 85, pCO2 38, and a pH is 7.36. He is getting saline at 75 mL an hour, norepinephrine at 20 mcg/m, and propofol is currently off. The nurses are doing a daily interruption of sedation. Labs today include a white count of 19, hemoglobin 9.5, hematocrit 29.9, and a platelet count of 298,000. Sodium 135, potassium 3.9, chlorides 106, CO2 19, anion gap 10, BUN 19, creatinine 1.32. The calcium is 7.2. Bilirubin 7.3. Ammonia level is 83. Microbiologic studies are essentially negative at this time. Chest x-ray shows stable bibasilar infiltrates versus atelectasis. Progress note dated 02/03/2022. 61-year-old male seen again in room 267. The patient had a cardiopulmonary arrest, and had about 20 minutes of total resuscitation time. He has a history of acute liver disease, alcohol withdrawal syndrome, metabolic encephalopathy, and elevated ammonia levels. I was able to speak to his sister today. The patient will be made a DO NOT RESUSCITATE. The patient apparently has a daughter and [place]. The family is trying to contact her. They may be moving towards comfort care. Currently, he remains on I am assist control, rate 18, tidal volume 450, FiO2 50%, and PEEP of 5. Blood gases show pO2 of 74, pCO2 43, and a pH is 7.3. These blood gases are consistent with metabolic acidosis. The patient's on propofol at 15 mcg/kg/m, norepinephrine at 31 mcg/m, saline at 75 mL an hour, and vital AF at 58 mL an hour, which is goal. White count 18.6, hemoglobin 9.7, hematocrit 31.3, and platelet count is normal. Sodium 135, potassium 4, chlorides 106, CO2 18, anion gap 11, BUN 28, creatinine 1.72. Albumin is 2.1. Total bilirubin is 11.6. Sputum from January 31 is consistent with staph aureus. He is oxacillin sensitive staph aureus. Chest x-ray shows a left-sided pleural effusion, with associated bibasilar infiltrates. Objective - Vital Signs Vital signs: Vital Signs Temp 98.0 F 02/03/22 08:00 Pulse 125 H 02/03/22 09:30 Resp 18 02/03/22 09:30 BP 109/82 02/03/22 07:00 Pulse Ox 91 L 02/03/22 09:30 FiO2 50 02/03/22 09:00 Intake & Output 02/02/22 02/03/22 02/03/22 18:59 06:59 18:59 Intake Total 7864.322 7854.821 449.454 Output Total 585 145 30 Balance 0477.687 2758.821 419.454 Intake: IV 900 900 225 Sodium Chloride 0.9% 1, 900 900 225 000 ml @ 75 mls/hr IV . [id number] [facility] Rx#:[id number] Intake, IV Titration 214.230 283.821 50.454 Amount Norepinephrine 32 mg In 110.454 156.944 50.454 Sodium Chloride 0.9% 218 ml @ 0.03 MCG/KG/MIN 1.18 mls/hr IV .Q24H [facility] Rx#: [id number] propofoL 1,000 mg In 103.776 126.877 Empty Bag 1 bag @ 15 MCG/ KG/MIN 7.552 mls/hr IV . [id number] [facility] Rx#:[id number] Tube Feeding 440 518 174 Other 90 60 Output: Urine 185 145 30 Stool 400 Other: Voiding Method Indwelling Catheter Indwelling Catheter ABP, PAP, CO, CI - Last Documented Arterial Blood Pressure 91/55 - Exam No acute distress, sedated, with an orally placed endotracheal tube and NG tube. HEENT examination is grossly unremarkable. Neck supple. Full range of motion. No adenopathy thyromegaly or neck vein distention. Cardiovascular examination reveals regular rhythm rate. S1-S2 normal. No S3 or S4. No discernible murmur noted. Heart sounds are distant. Heart rate 125 bpm. Lungs reveal bilateral coarse rhonchi. Breath sounds equal bilaterally. No wheezes or crackles. Saturations are 91 %. FiO2 is 50% on the ventilator. Abdomen is mildly distended. No bowel sounds are noted. Extremities are intact. No cyanosis clubbing or edema. Skin is without rash or lesion. Neurologic examination cannot be adequately assessed. - Labs CBC & Chem 7: 02/03/22 04:55 02/03/22 04:55 Labs: Abnormal Lab Results - Last 24 Hours (Table) 02/02/22 02/02/22 02/03/22 Range/Units 12:40 17:40 00:54 WBC (3.8-10.6) k/uL RBC (4.30-5.90) m/uL Hgb (13.0-17.5) gm/dL Hct (39.0-53.0) % MCV (80.0-100.0) fL RDW (11.5-15.5) % Neutrophils # (1.3-7.7) k/uL Macrocytosis ABG pH (7.35-7.45) ABG pO2 (83-108) mmHg ABG O2 Saturation (94-97) % Sodium (137-145) mmol/L Carbon Dioxide (22-30) mmol/L BUN (9-20) mg/dL Creatinine (0.66-1.25) mg/dL Glucose (74-99) mg/dL POC Glucose (mg/dL) 201 H 203 H 171 H (70-110) mg/dL Calcium (8.4-10.2) mg/dL Total Bilirubin (0.2-1.3) mg/dL AST (17-59) U/L Alkaline Phosphatase (38-126) U/L Total Protein (6.3-8.2) g/dL Albumin (3.5-5.0) g/dL 02/03/22 02/03/22 02/03/22 Range/Units 04:55 04:55 04:58 WBC 18.6 H (3.8-10.6) k/uL RBC 2.78 L (4.30-5.90) m/uL Hgb 9.7 L (13.0-17.5) gm/dL Hct 31.3 L (39.0-53.0) % MCV 112.7 H (80.0-100.0) fL RDW 17.7 H (11.5-15.5) % Neutrophils # 15.4 H (1.3-7.7) k/uL Macrocytosis Marked A ABG pH (7.35-7.45) ABG pO2 (83-108) mmHg ABG O2 Saturation (94-97) % Sodium 135 L (137-145) mmol/L Carbon Dioxide 18 L (22-30) mmol/L BUN 28 H (9-20) mg/dL Creatinine 1.72 H (0.66-1.25) mg/dL Glucose 173 H (74-99) mg/dL POC Glucose (mg/dL) 191 H (70-110) mg/dL Calcium 7.4 L (8.4-10.2) mg/dL Total Bilirubin 11.6 H (0.2-1.3) mg/dL AST 77 H (17-59) U/L Alkaline Phosphatase 607 H (38-126) U/L Total Protein 5.3 L (6.3-8.2) g/dL Albumin 2.1 L (3.5-5.0) g/dL 10/07/22 Range/Units 05:00 WBC (3.8-10.6) k/uL RBC (4.30-5.90) m/uL Hgb (13.0-17.5) gm/dL Hct (39.0-53.0) % MCV (80.0-100.0) fL RDW (11.5-15.5) % Neutrophils # (1.3-7.7) k/uL Macrocytosis ABG pH 7.30 L (7.35-7.45) ABG pO2 74 L (83-108) mmHg ABG O2 Saturation 93.5 L (94-97) % Sodium (137-145) mmol/L Carbon Dioxide (22-30) mmol/L BUN (9-20) mg/dL Creatinine (0.66-1.25) mg/dL Glucose (74-99) mg/dL POC Glucose (mg/dL) (70-110) mg/dL Calcium (8.4-10.2) mg/dL Total Bilirubin (0.2-1.3) mg/dL AST (17-59) U/L Alkaline Phosphatase (38-126) U/L Total Protein (6.3-8.2) g/dL Albumin (3.5-5.0) g/dL Microbiology - Last 24 Hours (Table) 01/31/22 20:52 Gram Stain - Final Sputum Sputum Culture - Final Staphylococcus aureus Assessment and Plan Assessment: Status post cardiopulmonary arrest, with pulseless electrical activity, status post cardiopulmonary resuscitation with return of spontaneous circulation, after 20 minutes of resuscitation. Status post intubation and mechanical ventilation on 01/31/2022, for cardiopulmonary arrest. Alcoholic liver disease. Acute kidney injury. Chronic alcohol abuse. Recent lymph node biopsy, potentially consistent with cutaneous T-cell lymphoma. Nicotine dependence syndrome. History of diabetes mellitus. History of hypertension. History of hyperlipidemia. Severe hyperbilirubinemia. Hepatic encephalopathy with hyperammonemia. Hypoalbuminemia. Anion gap metabolic acidosis. Plan: Plan dated 01/31/2022. A radial art line was placed for better blood pressure monitoring. The patient is maintained on norepinephrine at 25 mcg/m. Also, a left internal jugular triple-lumen catheter was placed. Labs, x-rays, medications are reviewed. Prognosis is certainly very poor. The patient's medications are reviewed and unnecessary medications are discontinued. The patient will need lactulose for his hyperammonemia. The patient should be on albuterol sulfate and ipratropium bromide, every 4 hours [id number]. We will continue to follow make recommendations along the way. Plan dated 02/01/2022. The patient remains on high doses of norepinephrine. The patient's on propofol, and remains on the mechanical ventilator. Brain CT was negative. Labs, x-rays, and medications are all reviewed. The patient will have a daily interruption of sedation. Today, we'll start tube feeds. Additional recommendations and suggestions are forthcoming. He continues on lactulose, and Xifaxan, for his hyperammonemia. Additional recommendations and suggestions are forthcoming. Prognosis is certainly guarded. Plan dated 02/02/2022. I will order a stat cortisol level. Patient's labs, x-rays, medications are reviewed. The patient remains on appropriate medications including norepinephrine at [address] was negative. We'll order an EEG and a neurology consultation. We will redouble our efforts to control the patient's ammonia level. Unnecessary medications are discontinued. Prognosis is poor. We will continue to follow make recommendations along the way. Plan dated 02/03/2022. The patient's overall condition is very poor. I did speak to the patient's sister today. She did make him a DO NOT RESUSCITATE CODE STATUS, which I think is very appropriate. They are in contact with his daughter in [place]. Were not sure that she will get here to see him. Labs, x-rays, medications are reviewed. Overall prognosis is very poor. We will continue to follow make recommendations along the way. We will await decisions about comfort care, before starting something for the staph aureus in the sputum. We will continue to follow the patient make recommendations along the way. Time with Patient: Greater than 30
[2022-02-03] MEDS ORDERED: METOPROLOL TARTRATE 5 MG/5 ML VIAL IVP ONE (11:42)
[2022-02-03] MEDS: NOREPINEPHRINE 4 MG in SODIUM CHLORIDE 0.9% 250 ML IV SCH (11:59)
[2022-02-03 12:01] VITALS: TEMP 97.8
[2022-02-03 12:01] LABS: Glucose,Whole Blood 210 mg/dL (70-110)
--- NOTE | 2022-02-03 13:14 | P.PN ---
Subjective Progress Note Date: 02/03/22 Principal diagnosis: Acute liver failure, jaundice This is a pleasant 61-year-old male who presented to the emergency department with complaints of generalized weakness. States that he's had some nausea and vomiting over the last 1 week duration. Patient history of diabetes mellitus, hypertension, and daily alcohol consumption. He denies previous history of liver disease. He was noted to have elevated bilirubin on admission. Gastroenterology was consulted for jaundice. Patient states that he drinks a pint and 5-6 beers daily. He has been drinking for 30-40 years. He denies any previous history of liver disease or liver cirrhosis. Patient states he did not realize that he was yellow, however he did state he noticed dark urine starting about one week ago. He denies any significant abdominal pain, however does feel distended. Denies any previous history of ascites or paracentesis. He currently denies any nausea vomiting, pain diarrhea. Home meds include s imvastatin metformin and lisinopril. Labs: WBC 10.2 hemoglobin 9.0 hematocrit 27 INR 1.3 sodium 129 potassium 3.4 BUN 14 creatinine 0.5 glucose 106 total bilirubin 12.1 AST 121 ALT [address] abdomen and pelvis reported fatty infiltration of the liver. Minimal atelectasis at the lung base. There is improvement compared to computed tomography scan 06/22/2021 some clearing of pulmonary interstitial edema. Abdominal ascites and fatty liver change compared to 06/22/2021 exam. Mass on the left lateral wall of the urinary bladder and follow-up recommended. Sigmoid diverticulosis. 01/31/2022: The patient was seen and examined today as follow-up. He seemed definitely more confused today. He knows his name however thought he was at home. Patient is requesting paracentesis be rescheduled and he is declining at this time. Nursing is reporting that patient is stating that he was given pills from a friend that visited yesterday evening. Unsure patient was hallucinating, likely going through detox as well as hepatic encephalopathy with elevated ammonia level at 100 today. LFTs continue to be elevated. 02/01/2022: Patient seen and examined today in the ICU. Yesterday patient became nonresponsive and was asystole. CPR was started and continued for 20 minutes. He was intubated and sent to the ICU. He remains sedated and intubated. No acute changes through the night. He does have gross hematuria and his Perdue catheter bag. Hemoglobin stable at 9.3 platelet count stable at 253,000, LFTs are trending down total bilirubin 11.3 AST 122 ALT 36 alkaline ph osphatase 637. Ammonia level currently pending. Patient is having multiple bowel movements on lactulose. Nursing is planning on placing a rectal tube. 02/02/22: Patient again seen and examined today in the ICU. He remains intubated and sedated. They tried to wean him off of sedation however he became quite tachycardic and remained sedated and intubated. Despite Xifaxan and lactulose patient's ammonia levels remained elevated, today 83. However LFTs are trending down. Patient is putting out decreased urine output, very dark urine. No other acute changes. 02/03/2022: Patient remains in the ICU he is intubated sedation has been weaned the patient has not woken up. Neurology was consulted and patient underwent EEG which was abnormal and consistent with a metabolic encephalopathy or possible brain abnormality. Objective - Vital Signs Vital signs: Vital Signs Temp 97.8 F 02/03/22 12:00 Pulse 137 H 02/03/22 12:00 Resp 19 02/03/22 12:00 BP 109/82 02/03/22 11:45 Pulse Ox 91 L 02/03/22 12:00 FiO2 50 02/03/22 12:00 Intake & Output 02/02/22 02/03/22 02/03/22 18:59 06:59 18:59 Intake Total 8235.676 4458.821 935.805 Output Total 585 145 60 Balance 9509.878 6812.821 875.805 Intake: IV 900 900 450 Sodium Chloride 0.9% 1, 900 900 450 000 ml @ 75 mls/hr IV . [id number] [facility] Rx#:[id number] Intake, IV Titration 214.230 283.821 79.805 Amount Norepinephrine 32 mg In 110.454 156.944 79.805 Sodium Chloride 0.9% 218 ml @ 0.03 MCG/KG/MIN 1.18 mls/hr IV .Q24H [facility] Rx#: [id number] propofoL 1,000 mg In 103.776 126.877 Empty Bag 1 bag @ 15 MCG/ KG/MIN 7.552 mls/hr IV . [id number] [facility] Rx#:[id number] Tube Feeding 440 518 406 Other 90 60 Output: Urine 185 145 60 Stool 400 Other: Voiding Method Indwelling Catheter Indwelling Catheter ABP, PAP, CO, CI - Last Documented Arterial Blood Pressure 88/62 - Exam General appearance: The patient is sedated and intubated HET: Head is normocephalic and atraumatic. Conjunctiva pink. Sclera deeply icteric. Neck: Supple without lymphadenopathy. Abdomen: Soft, nontender, nondistended. No guarding or rigidity. Extremities: Normal skin color and turgor. Patient with swelling of bilateral upper extremities as well as lower. Skin: No rashes, jaundice. Neurological: Sedated and intubated. - Labs CBC & Chem 7: 02/03/22 04:55 02/03/22 04:55 Labs: Abnormal Lab Results - Last 24 Hours (Table) 02/02/22 02/03/22 02/03/22 Range/Units 17:40 00:54 04:55 WBC 18.6 H (3.8-10.6) k/uL RBC 2.78 L (4.30-5.90) m/uL Hgb 9.7 L (13.0-17.5) gm/dL Hct 31.3 L (39.0-53.0) % MCV 112.7 H (80.0-100.0) fL RDW 17.7 H (11.5-15.5) % Neutrophils # 15.4 H (1.3-7.7) k/uL Macrocytosis Marked A ABG pH (7.35-7.45) ABG pO2 (83-108) mmHg ABG O2 Saturation (94-97) % Sodium (137-145) mmol/L Carbon Dioxide (22-30) mmol/L BUN (9-20) mg/dL Creatinine (0.66-1.25) mg/dL Glucose (74-99) mg/dL POC Glucose (mg/dL) 203 H 171 H (70-110) mg/dL Calcium (8.4-10.2) mg/dL Total Bilirubin (0.2-1.3) mg/dL AST (17-59) U/L Alkaline Phosphatase (38-126) U/L Total Protein (6.3-8.2) g/dL Albumin (3.5-5.0) g/dL 02/03/22 02/03/22 02/03/22 Range/Units 04:55 04:58 05:00 WBC (3.8-10.6) k/uL RBC (4.30-5.90) m/uL Hgb (13.0-17.5) gm/dL Hct (39.0-53.0) % MCV (80.0-100.0) fL RDW (11.5-15.5) % Neutrophils # (1.3-7.7) k/uL Macrocytosis ABG pH 7.30 L (7.35-7.45) ABG pO2 74 L (83-108) mmHg ABG O2 Saturation 93.5 L (94-97) % Sodium 135 L (137-145) mmol/L Carbon Dioxide 18 L (22-30) mmol/L BUN 28 H (9-20) mg/dL Creatinine 1.72 H (0.66-1.25) mg/dL Glucose 173 H (74-99) mg/dL POC Glucose (mg/dL) 191 H (70-110) mg/dL Calcium 7.4 L (8.4-10.2) mg/dL Total Bilirubin 11.6 H (0.2-1.3) mg/dL AST 77 H (17-59) U/L Alkaline Phosphatase 607 H (38-126) U/L Total Protein 5.3 L (6.3-8.2) g/dL Albumin 2.1 L (3.5-5.0) g/dL 02/03/22 Range/Units 12:00 WBC (3.8-10.6) k/uL RBC (4.30-5.90) m/uL Hgb (13.0-17.5) gm/dL Hct (39.0-53.0) % MCV (80.0-100.0) fL RDW (11.5-15.5) % Neutrophils # (1.3-7.7) k/uL Macrocytosis ABG pH (7.35-7.45) ABG pO2 (83-108) mmHg ABG O2 Saturation (94-97) % Sodium (137-145) mmol/L Carbon Dioxide (22-30) mmol/L BUN (9-20) mg/dL Creatinine (0.66-1.25) mg/dL Glucose (74-99) mg/dL POC Glucose (mg/dL) 210 H (70-110) mg/dL Calcium (8.4-10.2) mg/dL Total Bilirubin (0.2-1.3) mg/dL AST (17-59) U/L Alkaline Phosphatase (38-126) U/L Total Protein (6.3-8.2) g/dL Albumin (3.5-5.0) g/dL Microbiology - Last 24 Hours (Table) 01/31/22 20:52 Gram Stain - Final Sputum Sputum Culture - Final Staphylococcus aureus Assessment and Plan (1) Decompensation of cirrhosis of liver Narrative/Plan: This is 61-year-old male with significant history of alcohol abuse drinking 1 pint +5-6 beers daily for the last 30-40 years. No previous history of known liver disease. No previous history of paracentesis. Came into the emergency department for weakness was found to have a total bilirubin of 12.1. Patient also has abdominal distention, ascites. Patient has acute alcoholic hepatitis, with decompensation of cirrhosis likely related to alcohol with ascites. Will start patient on diuretics, plan for paracentesis. After initial exam patient was found unresponsive, XENIA DUARTE was called and CPR was initiated for 20 minutes. Patient was intubated and sent to the ICU. Patient's sister and mother at the bedside. Discussed there is a possibility for some improvement in his liver disease as patient quits drinking. LFTs continue to improve, ammonia levels remained elevated. Patient is on both sides accident and lactulose 30 g 3 times a day. Rectal tube in place with multiple bowel movements. Current Visit: Yes Status: Acute Code(s): K72.90 - HEPATIC FAILURE, UNSPECIFIED WITHOUT COMA; K74.60 - UNSPECIFIED CIRRHOSIS OF LIVER SNOMED Code(s): 144451844 (2) Jaundice Current Visit: Yes Status: Acute Code(s): R17 - UNSPECIFIED JAUNDICE SNOMED Code(s): 97910560 (3) Ascites Current Visit: Yes Status: Acute Code(s): R18.8 - OTHER ASCITES SNOMED Code(s): 122818264 (4) Acute liver failure Narrative/Plan: Acute alcoholic hepatitis related to underlying years of alcohol abuse. Current Visit: Yes Status: Acute Code(s): K72.00 - ACUTE AND SUBACUTE HEPATIC FAILURE WITHOUT COMA SNOMED Code(s): 030911284 (5) Alcohol abuse Current Visit: Yes Status: Acute Code(s): F10.10 - ALCOHOL ABUSE, UNCOMPLICATED SNOMED Code(s): 01683963 (6) Hyponatremia Narrative/Plan: improving Current Visit: Yes Status: Acute Code(s): E87.1 - HYPO-OSMOLALITY AND HYPONATREMIA SNOMED Code(s): 03330525 (7) Hypokalemia Narrative/Plan: resolved Current Visit: Yes Status: Acute Code(s): E87.6 - HYPOKALEMIA SNOMED C ode(s): 28877614 (8) Hypomagnesemia Narrative/Plan: resolved Current Visit: Yes Status: Acute Code(s): E83.42 - HYPOMAGNESEMIA SNOMED Code(s): 469281320 (9) Cardiopulmonary arrest with successful resuscitation Narrative/Plan: Patient remains in the ICU, under the care of asset protection professional Current Visit: Yes Status: Acute Code(s): I46.9 - CARDIAC ARREST, CAUSE UNSPECIFIED SNOMED Code(s): 811283293 Plan: 1. Continue symptomatic and supportive care 2. Continue with ICU management 3. Lactulose ordered 30 g 3 times a day, titrate to have 2-3 bowel movements d aily 4. Continue Xifaxin 5. alcohol abstinence 6. Patient has been made a no code, patient's prognosis is poor. Thank you for allowing us to participate in the care of the patient, the GI service will sign off, gastroenterology will not be available at the hospital this weekend and through next week. If further evaluation by gastroenterology is required the patient will need transfer as per the primary team's discretion. Dr. Shanae Braun I agree with the dictator's note, documented as a scribe by Gail Avila.
--- NOTE | 2022-02-03 13:48 | P.PN ---
Subjective Progress Note Date: 02/03/22 This is a 61-year-old male who was recently admitted with acute liver failure with severe jaundice with alcohol and had an episode of cardiopulmonary arrest with pulseless electrical activity and is being closely monitored. Patient continues to be in the ICU on mechanical ventilation with an FiO2 of 50% and PEEP is 5. Multiple medical consultations including pulmonary and GI are following. Patient is maintained on lactulose 3 times a day and ammonia is slightly improved at 79 today. Will order 2-D echo. WBC remains elevated at 17.9 and hemoglobin is stable at 9.3. Some hematuria and severely concentrated urine noted in the Perdue. Other labs within normal limits. Bilirubin down to 11.3 today. No plans for weaning at this time. Family at the bedside and questions and concerns were answered. 02/02/2022 Patient is seen and evaluated in follow-up this morning and is currently off propofol and not waking up and not following any commands and neurology has been consulted. GI following closely and patient is maintained on lactulose along with rifampin. Patient continues to have dark concentrated urine noted in the indwelling Perdue catheter along with continued loose stool. Patient is currently off pressor support and prognosis remains extremely guarded. Heart rate remains elevated and blood pressures are soft in the 90s to low 100s systolic. Patient continues on mechanical ventilation with an FiO2 of 50% and PEEP is 5. Urine culture showing presumptive staph aureus. WBC is 19 with a hemoglobin of 9.5 sodium is 135 with a potassium of 3.9, creatinine is 1.32, total bilirubin is 11.3, LFTs are trending down, ammonia remains elevated and is 83 today. Chest x-ray today showed stable bibasilar acute infiltrates and/or atelectasis. EEG is ordered and neurology consult is pending at this time. 02/03/2022 Patient is seen and evaluated in follow-up this morning placed back on very low dose of propofol to manage the agitation and tachycardia otherwise being evaluat ed closely by neurology with no responses as of yet. Patient had abnormal EEG with no epileptiform discharges noted. GI along with pulmonary following and CODE STATUS was discussed with family making him a no code. Overall prognosis remains extremely poor and guarded. Nursing staff attempting to contact next of kin who was apparently an estranged daughter out of state. Patient does have a mother and sister at the bedside daily. WBC is 18.6 with a hemoglobin of 9.7, sodium is 135 with a potassium of 4.0, creatinine is 1.72, bilirubin remains elevated at 11.6 with elevated LFTs although trending down and alk phosphatase is 607. Patient continues to be on mechanical ventilation with an FiO2 of 50% and PEEP is 5. Patient remains hypotensive and currently maintained on norepinephrine. Patient with elevated heart rate and was given a dose of IV Lopressor. Review of systems: Unable to obtain as patient is currently intubated and sedated Active Medications Albuterol/Ipratropium (Ipratropium-Albuterol 3 Ml Neb) 3 ml INHALATION RT-Q4H [facility]ITTANIE Last Admin: 02/03/22 10:55 Dose: 3 ml Chlorhexidine Gluconate (Chlorhexidine Gluconate 15 Ml Cup) 15 ml MUCOUS MEM BID [facility] Last Admin: 02/03/22 09:46 Dose: 15 ml Dextrose/Water (Dextrose 50% Syringe 50 Ml) 25 ml IVP PER PROTOCOL PRN; Protocol PRN Reason: Hypoglycemia Dextrose/Water (Dextrose 50% Syringe 50 Ml) 50 ml IVP PER PROTOCOL PRN; Protocol PRN Reason: Hypoglycemia Sodium Chloride (Saline 0.9%) 1,000 mls @ 75 mls/hr IV .[id number] BRITTANIE Last Admin: 02/03/22 07:13 Dose: 75 mls/hr Propofol 1,000 mg/ IV Solution 100 mls @ 7.552 mls/hr IV .[id number] BRITTANIE; Protocol Last Titration: 02/03/22 06:00 Dose: 15 mcg/kg/min, 7.552 mls/hr Norepinephrine Bitartrate 4 mg (/ Sodium Chloride) 254 mls @ 9.591 mls/hr IV .Q24H BRITTANIE; Protocol Last Admin: 02/03/22 11:59 Dose: Not Given Norepinephrine Bitartrate 32 (mg/ Sodium Chloride) 250 mls @ 1.18 mls/hr IV .Q24H BRITTANIE; Protocol Last Titration: 02/03/22 11:59 Dose: 0.4 mcg/kg/min, 15.734 mls/hr Insulin Aspart (Insulin Aspart (Novolog) 100 Unit/Ml Vial) 0 unit SQ Q6HR BRITTANIE; Protocol Last Admin: 02/03/22 05:11 Dose: 2 unit Lactulose (Lactulose 20 Gm/30 Ml Cup) 30 gm PO TID [facility] Last Admin: 02/03/22 09:46 Dose: 30 gm Miscellaneous Information (Potassium Replacement Protocol 1 Each Misc) 1 each MISCELLANE DAILY PRN; Protocol PRN Reason: Per Protocol Miscellaneous Information (Magnesium Replacement Protocol 1 Each Misc) 1 each MISCELLANE DAILY PRN; Protocol PRN Reason: Per Protocol Naloxone HCl (Naloxone 0.4 Mg/Ml 1 Ml Vial) 0.2 mg IV Q2M PRN PRN Reason: Opioid Reversal Pantoprazole Sodium (Pantoprazole 40 Mg/10 Ml Vial) 40 mg IV DAILY [facility] Last Admin: 02/03/22 09:46 Dose: 40 mg Rifaximin (Rifaximin 550 Mg Tablet) 550 mg PO BID [facility]; Protocol Stop: 03/03/22 21:01 Last Admin: 02/03/22 09:46 Dose: 550 mg Spironolactone (Spironolactone 25 Mg Tab) 100 mg PO DAILY [facility] Last Admin: 02/03/22 09:46 Dose: 100 mg Thiamine HCl (Thiamine 100 Mg Tab) 100 mg PO DAILY [facility] Last Admin: 02/03/22 09:46 Dose: 100 mg PHYSICAL EXAMINATION: GENERAL: The patient is currently intubated on mechanical vent, ill-appearing elderly male, jaundiced, was off sedation with no response HEENT: Pupils are round and equally reacting to light. EOMI. scleral icterus noted. conjunctival pallor. Normocephalic, atraumatic. CARDIOVASCULAR: S1 and S2 muffled PULMONARY: diminished breath sounds bilaterally with some scattered rhonchi noted. ABDOMEN: soft. Distended, tympanic. normoactive bowel sounds. MUSCULOSKELETAL: No joint swelling or deformity. EXTREMITIES: No cyanosis, clubbing, or pedal edema. NEUROLOGICAL: Unable to completely assess as patient is intubated and sedated SKIN: No rashes. Jaundice Assessment: Acute hepatic failure secondary to alcoholic liver disease Acute cardiovascular arrest and acute respiratory failure on mechanical ventilation Hypertension Diabetes mellitus, type II Alcoholic cirrhosis Continued ongoing nicotine dependence GI prophylaxis DVT prophylaxis No code Plan: Recommend to continue with current medications and management with multiple medical consultations including GI and pulmonary following. Patient is continued on mechanical vent with an FiO2 of 50% and PEEP is 5. Patient was off sedation with no neurological responses. EEG was done which was abnormal with no epileptiform discharges noted. Neurology following the patient has remained comatose with no response. Patient was placed back on propofol to manage symptomatic agitation of mechanical ventilation. Patient's heart rate elevated today and was given a dose of IV Lopressor. Patient's blood pressure is hypotensive maintained on norepinephrine at this time. Patient's CODE STATUS was addressed and changed to no code and family further discussing treatment plan and attempting to Contact next of kin estranged daughter out of state. Sister and mother have been at the bedside daily. Recommend continue with current medication regimen and recommend repeat labs along with chest x-ray in the a.m. Due to multiple complex medical issues, prognosis is extremely poor and guarded. The impression and plan of care has been dictated by Tosin Godwin, nurse practitioner as directed. Dr. Jose Eduardo MD I have performed a history and examination and MDM of this patient, discussed the same with the dictator, and agree with the dictator's assessment and plan as written ,documented as a scribe. Based on total visit time, I have performed more than 50% of the visit. Any additional findings or plans will be noted. Objective - Vital Signs Vital signs: Vital Signs Temp 97.8 F 02/03/22 12:00 Pulse 137 H 02/03/22 12:00 Resp 19 02/03/22 12:00 BP 109/82 02/03/22 11:45 Pulse Ox 91 L 02/03/22 12:00 FiO2 50 02/03/22 12:00 Intake & Output 02/02/22 02/03/22 02/03/22 18:59 06:59 18:59 Intake Total 3261.177 9751.821 935.805 Output Total 585 145 60 Balance 6714.275 5938.821 875.805 Intake: IV 900 900 450 Sodium Chloride 0.9% 1, 900 900 450 000 ml @ 75 mls/hr IV . [id number] [facility] Rx#:[id number] Intake, IV Titration 214.230 283.821 79.805 Amount Norepinephrine 32 mg In 110.454 156.944 79.805 Sodium Chloride 0.9% 218 ml @ 0.03 MCG/KG/MIN 1.18 mls/hr IV .Q24H [facility]ITTAN[facility] Rx#: [id number] propofoL 1,000 mg In 103.776 126.877 Empty Bag 1 bag @ 15 MCG/ KG/MIN 7.552 mls/hr IV . [id number] [facility] Rx#:[id number] Tube Feeding 440 518 406 Other 90 60 Output: Urine 185 145 60 Stool 400 Other: Voiding Method Indwelling Catheter Indwelling Catheter ABP, PAP, CO, CI - Last Documented Arterial Blood Pressure 88/62 - Labs CBC & Chem 7: 02/03/22 04:55 02/03/22 04:55 Labs: Abnormal Lab Results - Last 24 Hours (Table) 02/02/22 02/03/22 02/03/22 Range/Units 17:40 00:54 04:55 WBC 18.6 H (3.8-10.6) k/uL RBC 2.78 L (4.30-5.90) m/uL Hgb 9.7 L (13.0-17.5) gm/dL Hct 31.3 L (39.0-53.0) % MCV 112.7 H (80.0-100.0) fL RDW 17.7 H (11.5-15.5) % Neutrophils # 15.4 H (1.3-7.7) k/uL Macrocytosis Marked A ABG pH (7.35-7.45) ABG pO2 (83-108) mmHg ABG O2 Saturation (94-97) % Sodium (137-145) mmol/L Carbon Dioxide (22-30) mmol/L BUN (9-20) mg/dL Creatinine (0.66-1.25) mg/dL Glucose (74-99) mg/dL POC Glucose (mg/dL) 203 H 171 H (70-110) mg/dL Calcium (8.4-10.2) mg/dL Total Bilirubin (0.2-1.3) mg/dL AST (17-59) U/L Alkaline Phosphatase (38-126) U/L Total Protein (6.3-8.2) g/dL Albumin (3.5-5.0) g/dL 02/03/22 02/03/22 02/03/22 Range/Units 04:55 04:58 05:00 WBC (3.8-10.6) k/uL RBC (4.30-5.90) m/uL Hgb (13.0-17.5) gm/dL Hct (39.0-53.0) % MCV (80.0-100.0) fL RDW (11.5-15.5) % Neutrophils # (1.3-7.7) k/uL Macrocytosis ABG pH 7.30 L (7.35-7.45) ABG pO2 74 L (83-108) mmHg ABG O2 Saturation 93.5 L (94-97) % Sodium 135 L (137-145) mmol/L Carbon Dioxide 18 L (22-30) mmol/L BUN 28 H (9-20) mg/dL Creatinine 1.72 H (0.66-1.25) mg/dL Glucose 173 H (74-99) mg/dL POC Glucose (mg/dL) 191 H (70-110) mg/dL Calcium 7.4 L (8.4-10.2) mg/dL Total Bilirubin 11.6 H (0.2-1.3) mg/dL AST 77 H (17-59) U/L Alkaline Phosphatase 607 H (38-126) U/L Total Protein 5.3 L (6.3-8.2) g/dL Albumin 2.1 L (3.5-5.0) g/dL 02/03/22 Range/Units 12:00 WBC (3.8-10.6) k/uL RBC (4.30-5.90) m/uL Hgb (13.0-17.5) gm/dL Hct (39.0-53.0) % MCV (80.0-100.0) fL RDW (11.5-15.5) % Neutrophils # (1.3-7.7) k/uL Macrocytosis ABG pH (7.35-7.45) ABG pO2 (83-108) mmHg ABG O2 Saturation (94-97) % Sodium (137-145) mmol/L Carbon Dioxide (22-30) mmol/L BUN (9-20) mg/dL Creatinine (0.66-1.25) mg/dL Glucose (74-99) mg/dL POC Glucose (mg/dL) 210 H (70-110) mg/dL Calcium (8.4-10.2) mg/dL Total Bilirubin (0.2-1.3) mg/dL AST (17-59) U/L Alkaline Phosphatase (38-126) U/L Total Protein (6.3-8.2) g/dL Albumin (3.5-5.0) g/dL Microbiology - Last 24 Hours (Table) 01/31/22 20:52 Gram Stain - Final Sputum Sputum Culture - Final Staphylococcus aureus
[2022-02-03] MEDS ORDERED: ATROPINE OPHTH SOLN 1% 5ML BTL SUBLINGUAL PRN (13:54)
[2022-02-03] MEDS ORDERED: MORPHINE SULFATE 4 MG/ML SYRINGE IV PRN (13:54)
[2022-02-03] MEDS ORDERED: MORPHINE SULFATE 10 MG/ML 1ML VIAL IVP ONE (13:54)
[2022-02-03] MEDS ORDERED: SCOPOLAMINE 1 MG/72 HR PATCH TRANSDERM SCH (14:00)
[2022-02-03] MEDS ORDERED: MORPHINE SULFATE (100 MG/2 ML) 100 MG in SODIUM CHLORIDE 0.9% 100 ML IV SCH (14:30)
[2022-02-03 17:11] VITALS: PULSE 28; RESP 0
--- NOTE | 2022-02-06 22:53 | CDI ---
Documentation Clarification Form Date: 02/06/2022 10:30:12 PM From: Parisa Le Phone: Admit Date: 01/29/2022 05:21:00 PM Patient Name: Simone Connell Visit Number: [id number] Discharge Date: 02/03/2022 05:48:00 PM ATTENTION: The Clinical Documentation Specialists (CDI) and [facility] Coding Staff appreciate your assistance in clarifying documentation. Please respond to the clarification below the line at the bottom and electronically sign. The CDI & [facility] Coding staff will review the response and follow-up if needed. Please note: Queries are made part of the Legal Health Record. If you have any questions, please contact the author of this message via ITS. Dr. Triston Whitt The patient presented with the following clinical indicators. Additional clarification regarding the etiology/cause of the clinical indicators is requested. History/Risk Factors: 61yo M, Acute cirrhosis/liver failure, ETOH abuse w ketosis, met enceph, ARF, PAE w resuscitation, Hypotension Clinical Indicators: WBC: 10.2- 19 Lactic acid: 3.2 Cultures: Sputum from January 31 is consistent with staph aureus. He is oxacillin sensitive staph aureus. Vitals signs: Temperature 97.7 F Pulse Rate 98 100 98 Respiratory 18 18 18 Blood Pressure 109/82 118/82 122/80 O2 Sat by Pulse 100 98 97 Treatment: Continue symptomatic and supportive care 2.Continue with ICU management 3.Lactulose ordered 30 g 3 times a day, titrate to have 2-3 bowel movements daily. 4. Continue Xifaxin 5. Alcohol abstinence 6.Patient has been made a no code, patient's prognosis is poor IV Bolus: arterial line, vent, Administration of fluids and pressor, CVC In your professional opinion, please clarify if these findings signify one of the following conditions: [ ] Sepsis POA due to [ ] Sepsis, Not POA [ ] Sepsis ruled out [ x ] Severe Sepsis with organ failure [ ] Septic Shock [ ] Other, please specify [ ] Unable to determine SIRS Criteria: 2 or more of the following may indicate SIRS -Temperature < 96.8F (36C) or > 101.0F (38.3C) -Heart Rate > 90 bpm -Respiratory Rate > 20 breaths/min or PaCO2 < 32 mmHg -White Blood Cell Count > 12,000 or < 4,000 cells/mm3 or > 10% bands (Template Last Reviewed: May 2020) MTDD
--- NOTE | 2022-02-13 15:57 | P.DS ---
Providers Date of admission: 01/29/22 17:21 Expected date of discharge: 02/03/22 Attending physician: Kelli Ho Consults: 01/30/22 11:55 Consult Physician Routine Consulting Provider: Filomena Braun Consult Reason/Comments: jaundice Do you want consulting provider notified?: Yes 01/31/22 10:57 Consult Physician Stat Consulting Provider: Benny Marin Consult Reason/Comments: CODE Blue Do you want consulting provider notified?: Already Contacted 02/02/22 09:27 Consult Physician Routine Consulting Provider: Bucky Marin Consult Reason/Comments: Encephalopathy Do you want consulting provider notified?: Yes Primary care physician: Stated None Hospital Course: Preliminary cause of Liver failure Final diagnosis Acute hepatic failure secondary to alcoholic liver disease Acute cardiovascular arrest and acute respiratory failure on mechanical ventilation Hypertension Diabetes mellitus, type II Alcoholic cirrhosis Continued ongoing nicotine dependence GI prophylaxis DVT prophylaxis No code Discharge disposition Patient has . According to nursing documentation time of was 1616 on 02/03/2022. Patient was terminally weaned with family at the bedside. Please refer to previous dictations and other consultation notes for further HPI. Hospital course This is a 61-year-old male who was recently admitted with acute liver failure severe jaundice with alcohol and episode of cardiopulmonary arrest with PE a and placed on mechanical ventilation and brought to the ICU. Patient with GI following with no improvements and family had lengthy discussion about overall CODE STATUS and made DO NOT RESUSCITATE. Further discussion was had with the family and they requested terminally weaning and making the patient comfort. Patient was extubated and placed on comfort measures and 1616 on 02/03/2022. Again please refer to previous dictations and other consultations notes for further HPI. The impression and plan of care has been dictated by Tosin Godwin, Nurse Practitioner as directed. Dr. Jose Eduardo MD I have performed a history and examination and MDM of this patient, discussed the same with the dictator, and agree with the dictator's assessment and plan as written ,documented as a scribe. Based on total visit time, I have performed more than 50% of the visit. Patient Condition at Discharge: Poor Plan - Discharge Summary Discharge Rx Participant: No New Discharge Prescriptions: No Action Simvastatin [Zocor] 40 mg PO HS metFORMIN HCL [Glucophage] 500 mg PO DAILY lisinopriL 40 mg PO DAILY Discharge Medication List Simvastatin [Zocor] 40 mg PO HS 06/22/21 [History] lisinopriL 40 mg PO DAILY 06/22/21 [History] metFORMIN HCL [Glucophage] 500 mg PO DAILY 06/22/21 [History] Follow up Appointment(s)/Referral(s): None,Stated [Primary Care Provider] - 1-2 days Discharge Disposition: - Preliminary Cause of Preliminary Cause of : Liver failure
== END 2022-02-03 17:48 | disposition expired | DRG 432 ==
LOC: EC 13:06 → 4SSUR 17:21 → 3SCARD 18:32 → 2SICU 01-31 10:25
PROVIDERS: ADMIT Internal Medicine; ATTEND Internal Medicine
PROC: 5A12012 Performance of Cardiac Output, Single, Manual (ICD-10-PCS; principal; 2022-01-31)
PROC: 03HY32Z Insertion of Monitoring Device into Upper Artery, Percutaneous Approach (ICD-10-PCS; 2022-01-31)
PROC: 4A133B1 Monitoring of Arterial Pressure, Peripheral, Percutaneous Approach (ICD-10-PCS; 2022-01-31)
PROC: 4A133J1 Monitoring of Arterial Pulse, Peripheral, Percutaneous Approach (ICD-10-PCS; 2022-01-31)
PROC: 3E033XZ Introduction of Vasopressor into Peripheral Vein, Percutaneous Approach (ICD-10-PCS; 2022-01-31)
PROC: 0D9670Z Drainage of Stomach with Drainage Device, Via Natural or Artificial Opening (ICD-10-PCS; 2022-01-31)
PROC: 0BH18EZ Insertion of Endotracheal Airway into Trachea, Via Natural or Artificial Opening Endoscopic (ICD-10-PCS; 2022-01-31)
PROC: 5A1945Z Respiratory Ventilation, 24-96 Consecutive Hours (ICD-10-PCS; 2022-01-31)
PROC: 02HV33Z Insertion of Infusion Device into Superior Vena Cava, Percutaneous Approach (ICD-10-PCS; 2022-01-31)
PROC: HZ2ZZZZ Detoxification Services for Substance Abuse Treatment (ICD-10-PCS; 2022-02-03)
DX: K70.40 Alcoholic hepatic failure without coma (principal); G93.41 Metabolic encephalopathy; J96.00 Acute respiratory failure, unspecified whether with hypoxia or hypercapnia; G93.1 Anoxic brain damage, not elsewhere classified; N17.9 Acute kidney failure, unspecified; E87.20 Acidosis, unspecified; E87.1 Hypo-osmolality and hyponatremia; F10.132 Alcohol abuse with withdrawal with perceptual disturbance; G25.9 Extrapyramidal and movement disorder, unspecified; K70.11 Alcoholic hepatitis with ascites; E11.9 Type 2 diabetes mellitus without complications; I10 Essential (primary) hypertension; I07.1 Rheumatic tricuspid insufficiency; K76.82 Hepatic encephalopathy; K70.31 Alcoholic cirrhosis of liver with ascites; E88.09 Other disorders of plasma-protein metabolism, not elsewhere classified; K76.0 Fatty (change of) liver, not elsewhere classified; B95.61 Methicillin susceptible Staphylococcus aureus infection as the cause of diseases classified elsewhere; Z51.5 Encounter for palliative care; Z66 Do not resuscitate; I46.9 Cardiac arrest, cause unspecified; Y90.1 Blood alcohol level of 20-39 mg/100 ml; F17.210 Nicotine dependence, cigarettes, uncomplicated; K57.30 Diverticulosis of large intestine without perforation or abscess without bleeding; E87.6 Hypokalemia; E83.42 Hypomagnesemia; E78.5 Hyperlipidemia, unspecified; Z63.8 Other specified problems related to primary support group; R79.89 Other specified abnormal findings of blood chemistry; R31.0 Gross hematuria; Z79.899 Other long term (current) drug therapy; Z79.84 Long term (current) use of oral hypoglycemic drugs
CPT/HCPCS: 36415; 36600; 70450; 71045; 71046; 74177; 80053; 80074; 80143; 80306; 80320; 81001; 82140; 82248; 82533; 82805; 83036; 83605; 83735; 83880; 84100; 84145; 84443; 84484; 85025; 85027; 85610; 85730; 87070; 87077; 87186; 87205; 92950; 93005; 93306; 94002; 94003; 94640; 95822; 96361; 96365; 96366; 96375; 99285